=== PATIENT | male | born 1990 | race Caucasian/White ===

== ENCOUNTER 2017-07-17 18:22 | Inpatient (IN) | payer OTHER ==
[2017-07-17 18:59] VITALS: BMI 22.2
--- NOTE | 2017-07-17 20:22 | HP ---
Admission ROS [facility] Chief Complaint: Seeking admission to rehab for heroin dependence Allergies/Adverse Reactions: Allergies Allergy/AdvReac Type Severity Reaction Status Date / Time No Known Allergies Allergy Verified 07/17/17 19:07 History of Present Illness: 26 years old male with a history of heroin dependence is admitted to rehab. This is patient's first admission to [facility]. Patient has a past medical history of epilepsy and depression. Patient reports that he overdosed yesterday on heroine and was treated at a local hospital. Denies suicidal ideation at this time. Exam Limitations: No Limitations - Ebola screening Have you traveled outside of the country in the last 21 days: No Have you had contact with anyone from an Ebola affected area: No Have you been sick,other than usual withdrawal symptoms: No Do you have a fever: No - Review of Systems Constitutional: No Symptoms Reported EENT: reports: No Symptoms Reported Respiratory: reports: No Symptoms reported Cardiac: reports: No Symptoms Reported GI: reports: No Symptoms Reported : reports: No Symptoms Reported Musculoskeletal: reports: No Symptoms Reported Integumentary: reports: No Symptoms Reported Neuro: reports: No Symptoms reported Endocrine: reports: No Symptoms Reported Hematology: reports: No Symptoms Reported Psychiatric: reports: No Sypmtoms Reported, Mood/Affect Appropiate, Orientated x3 Other Systems: Reviewed and Negative Patient History - Patient Medical History Hx Anemia: No Hx Asthma: No Hx Chronic Obstructive Pulmonary Disease (COPD): No Hx Cancer: No Hx Cardiac Disorders: No Hx Congestive Heart Failure: No Hx Hypertension: No Hx Hypercholesterolemia: No HX Cerebrovascular Accident: No Hx Seizures: Yes (Epilepsy) Hx Diabetes: No Hx Gastrointestinal Disorders: No Hx Liver Disease: No Hx Genitourinary Disorders: No Hx Sexually Transmitted Disorders: No Hx Renal Disease (ESRD): No Hx Thyroid Disease: No Hx Human Immunodeficiency Virus (HIV): No (Negative 2016) Hx Hepatitis C: No (Negative 2017) Hx Depression: Yes Hx Suicide Attempt: No (Denies suicidal ideation at this time) Hx Bipolar Disorder: No Hx Schizophrenia: No - Patient Surgical History Past Surgical History: Yes Hx Neurologic Surgery: No Hx Cataract Extraction: No Hx Cardiac Surgery: No Hx Lung Surgery: No Hx Abdominal Surgery: No Hx Appendectomy: No Hx Cholecystectomy: No Hx Genitourinary Surgery: No Hx Orthopedic Surgery: No Other Surgical History: Ear surgery 2010 Anesthesia Reaction: No - PPD History Previous Implant?: No Documented Results: Negative w/o proof Implanted On Prior [facility] Admission?: No PPD to be Administered?: Yes - Reproductive History Patient is a Female of Child Bearing Age (11 -55 yrs old): No (MALE) - Smoking Cessation Smoking history: Current every day smoker Have you smoked in the past 12 months: Yes Aproximately how many cigarettes per day: 10 Hx Chewing Tobacco Use: No Initiated information on smoking cessation: Yes 'Breaking Loose' booklet given: 07/17/17 - Substance & Tx. History Hx Alcohol Use: No Hx Substance Use: Yes Substance Use Type: Marijuana Hx Substance Use Treatment: No - Substances Abused Heroin Route: Inhalation Frequency: 1-2 times per week Age of first use: 21 Date of Last Use: 07/16/17 Family Disease History - Family Disease History Family Disease History: Other: Father (Drug addiction), Mother (Drug addiction) Admission Physical Exam [facility] - Vital Signs Vital Signs: Vital Signs - 24 hr 07/17/17 18:53 Temperature 97.9 F Pulse Rate 90 Respiratory 18 Rate Blood Pressure 138/69 - Physical General Appearance: Yes: No Apparent Distress, Appropriately Dressed HEENTM: Yes: Normal ENT Inspection, Normal Voice, WOODY Respiratory: Yes: Lungs Clear, Normal Breath Sounds, No Respiratory Distress Neck: Yes: Supple Breast: Yes: Breast Exam Deferred Cardiology: Yes: Regular Rhythm, Regular Rate, S1, S2 Abdominal: Yes: Normal Bowel Sounds, Soft Genitourinary: Yes: Within Normal Limits Back: Yes: Within Normal Limits Musculoskeletal: Yes: Within Normal Limits Extremities: Yes: Within Normal Limits Neurological: Yes: Within Normal Limits Integumentary: Yes: Within Normal Limits Lymphatic: Yes: Within Normal Limits - Diagnostic (1) Opioid dependence, uncomplicated Current Visit: Yes Status: Chronic (2) Cannabis dependence, uncomplicated Current Visit: Yes Status: Chronic (3) Nicotine dependence Current Visit: Yes Status: Chronic (4) Epilepsy Current Visit: Yes Status: Chronic (5) Depression Current Visit: Yes Status: Chronic Cleared for Admission [facility] - Detox or Rehab [facility] Level of Care: Observation Bed Claeared for Rehab Admission: Yes [facility] Breath Alcohol Content Breath Alcohol Content: 0 Urine Drug Screen - Results Drug Screen Negative: No Urine Drug Screen Results: THC-Marijuana Inpatient Rehab Admission - Initial Determination Are CD services needed?: Yes Free of communicable disease: Yes Not in need of hospitalization: Yes - Rehab Admission Criteria Previous failed treatment: Yes Poor recovery environment: Yes Comorbidities: Yes Lacks judgement: No Patient is meeting Inpatient Rehab admission criteria:: Yes
[2017-07-17] MEDS ORDERED: ACETAMINOPHEN 325 MG TABLET (FP) PO PRN (20:35)
[2017-07-17] MEDS ORDERED: MAG HYDROX/AL HYDROX/SIMETH 30 ML UNIT-DOSE CUP PO PRN (20:35)
[2017-07-17] MEDS ORDERED: MENTHOL/PHENOL 1 EACH UD MM PRN (20:35)
[2017-07-17] MEDS ORDERED: NICOTINE POLACRILEX 2 MG GUM BUC PRN (20:35)
[2017-07-17] MEDS ORDERED: guaiFENesin/D-METHORPHAN HB 10 ML UNIT-DOSE CUPS PO PRN (20:35)
[2017-07-17] MEDS ORDERED: LOPERAMIDE HCL 2 MG CAPSULE PO PRN (20:35)
[2017-07-17] MEDS ORDERED: P-EPHED 60MG/TRIPROLIDI 2.5MG TABLET PO PRN (20:35)
[2017-07-17] MEDS ORDERED: MAGNESIUM HYDROX 2400MG/30ML ORAL SUSPENSION 30 ML CUP PO PRN (20:35)
[2017-07-17] MEDS ORDERED: IBUPROFEN 400 MG TABLET (FP) PO PRN (20:35)
[2017-07-17] MEDS ORDERED: MAGNESIUM CITRATE 300 ML BOTTLE PO PRN (20:35)
[2017-07-17] MEDS ORDERED: TUBERCULIN PPD 5 TU/0.1ML VIAL ID ONE (21:58)
[2017-07-17] MEDS: THIAMINE HCL 100 MG TABLET (FP) PO SCH (22:01)
[2017-07-17] MEDS: DIVALPROEX SODIUM 500 MG TABLET E.C. PO SCH (22:02)
[2017-07-17 22:16] LABS: URINE APPEARANCE CLEAR; URINE BILIRUBIN NEGATIVE (NEGATIVE); URINE BLOOD NEGATIVE (NEGATIVE); URINE COLOR YELLOW; URINE GLUCOSE (UA) NEGATIVE (NEGATIVE); URINE KETONE 1+ (NEGATIVE); URINE LEUK ESTERASE NEGATIVE (NEGATIVE); URINE NITRITE NEGATIVE (NEGATIVE); URINE PROTEIN NEGATIVE (NEGATIVE)
[2017-07-18 10:04] LABS: HEMATOCRIT 42.4 % (35.4-49); MCH 31.4 pg (25.7-33.7); MCHC 33.1 g/dl (32.0-35.9); MEAN PLT VOLUME 8.8 fl (7.5-11.1); PLATELET COUNT 120 K/MM3 (134-434); RBC 4.46 M/mm3 (4.00-5.60); RDW 14.2 % (11.9-15.9); WHITE BLOOD COUNT 3.5 K/mm3 (4.0-10.0)
[2017-07-18 10:14] LABS: CHLORIDE 102 mmol/L (98-107); POTASSIUM 3.8 mmol/L (3.5-5.1); SODIUM 138 mmol/L (136-145)
--- NOTE | 2017-07-18 10:16 | EKG ---
Test Reason : Blood Pressure : / mmHG Vent. Rate : 087 BPM Atrial Rate : 087 BPM P-R Int : 142 ms QRS Dur : 092 ms QT Int : 358 ms P-R-T Axes : 063 -28 047 degrees QTc Int : 430 ms NORMAL SINUS RHYTHM NORMAL ECG NO PREVIOUS ECGS AVAILABLE Confirmed by DARIEL GILBERT MD ([id number]) on 07/18/2017 10:15:46 AM Referred By: Confirmed By:DARIEL GILBERT MD
[2017-07-18] MEDS: PRENATAL VITAMINS W/ FOLIC ACID TABLET (FP) PO SCH (10:20)
[2017-07-18] MEDS: NICOTINE 14 MG/24 HOURS TOPICAL PATCH TD SCH (10:20)
[2017-07-18] MEDS: DIVALPROEX SODIUM 500 MG TABLET E.C. PO SCH ×2 (10:20→21:00)
[2017-07-18 10:23] LABS: ALBUMIN 3.6 g/dl (3.4-5.0); ALK PHOS 86 U/L (45-117); ANION GAP 8 (8-16); BILIRUBIN,TOTAL 0.8 mg/dL (0.2-1.0); BLOOD UREA NITROGEN 6 mg/dL (7-18); CALCIUM 8.2 mg/dL (8.5-10.1); CO2 28 mmol/L (21-32); CREATININE 0.6 mg/dL (0.7-1.3); GLUCOSE,RANDOM 80 mg/dL (74-106); SGOT/AST 18 U/L (15-37); SGPT/ALT 21 U/L (12-78); TOT PROT 6.2 g/dl (6.4-8.2)
--- NOTE | 2017-07-18 14:06 | HP ---
Psychiatrist Admission - Data Date of interview: 07/18/17 Admission source: [facility] Identifying data: This is the first 5N inpatient rehabilitation admission for this 26 year old male father of 6 year old , who is unemployed, residing in [facility]. Medical History: Patient reports history of epilepsy. Smokes ciagerettes 10 a day. Psychiatric History: Patient reports first psychiatric contact 7 years ago in outpatient setting, was started remeron 30 mg po hs, no psychiatric follow up, states he visits ER to get his scripts, no history of psychiatric hospitalizations, no history of suicidal attmepts, he states he accidently overdosed with 1/2 bag of heroin about 2 days ago and was admitted to [facility] and d/c. He appeared a little fatigued, states that he just feels very tired and wants to sleep. Physical/Sexual Abuse/Trauma History: Denies history of abuse(sexual, physical and verbal). Vital Signs: Vital Signs - 24 hr 07/17/17 07/17/17 07/18/17 18:53 22:00 00:30 Temperature 97.9 F 98.3 F Pulse Rate 90 90 Respiratory 18 18 16 Rate Blood Pressure 138/69 125/76 07/18/17 07/18/17 03:30 06:29 Temperature 97.3 F L Pulse Rate 82 Respiratory 16 16 Rate Blood Pressure 117/70 Allergies/Adverse Reactions: Allergies Allergy/AdvReac Type Severity Reaction Status Date / Time No Known Allergies Allergy Verified 07/17/17 19:07 Date of last physical exam: 07/17/17 Concur with the findings of this exam: Yes - Substance Abuse/Tx History Hx Alcohol Use: No Substance Use Type: Heroin, Marijuana Hx Substance Use Treatment: Yes ([facility]) Mental Status Exam - Mental Status Exam Alert and Oriented to: Place, Person Cognitive Function: Grossly Intact Patient Appearance: Disheveled Mood: Sad, Anxious Affect: Appropriate, Mood Congruent Patient Behavior: Sedated, Cooperative Speech Pattern: Appropriate Voice Loudness: Normal Thought Process: Goal Oriented Thought Disorder: Not Present Hallucinations: Denies Suicidal Ideation: Denies Homicidal Ideation: Denies Insight/Judgement: Fair Sleep: Fair Appetite: Fair Muscle strength/Tone: Normal Gait/Station: Normal Psychiatric Findings - Problem List ([place] 1, 2,3) (1) Cannabis dependence Current Visit: Yes Status: Acute (2) Opioid dependence Current Visit: Yes Status: Acute (3) Nicotine dependence Current Visit: Yes Status: Chronic (4) Depressive disorder Current Visit: Yes Status: Acute (5) Opioid-induced anxiety disorder Current Visit: Yes Status: Acute - Initial Treatment Plan Initial Treatment Plan: Will continue Remeron 30 mg po hs, monitor progress as needed.
[2017-07-18] MEDS: THIAMINE HCL 100 MG TABLET (FP) PO SCH (21:01)
[2017-07-18] MEDS: MIRTAZAPINE 30 MG TABLET (FP) PO SCH (21:01)
[2017-07-19] MEDS: DIVALPROEX SODIUM 500 MG TABLET E.C. PO SCH ×2 (09:55→21:15)
[2017-07-19] MEDS: PRENATAL VITAMINS W/ FOLIC ACID TABLET (FP) PO SCH (09:55)
[2017-07-19] MEDS: NICOTINE 14 MG/24 HOURS TOPICAL PATCH TD SCH (09:56)
[2017-07-19] MEDS: THIAMINE HCL 100 MG TABLET (FP) PO SCH (21:15)
[2017-07-19] MEDS: MIRTAZAPINE 30 MG TABLET (FP) PO SCH (21:15)
[2017-07-20] MEDS: NICOTINE 14 MG/24 HOURS TOPICAL PATCH TD SCH (10:01)
[2017-07-20] MEDS: DIVALPROEX SODIUM 500 MG TABLET E.C. PO SCH ×2 (10:01→21:53)
[2017-07-20] MEDS: PRENATAL VITAMINS W/ FOLIC ACID TABLET (FP) PO SCH (10:01)
[2017-07-20] MEDS: MIRTAZAPINE 30 MG TABLET (FP) PO SCH (21:53)
[2017-07-20] MEDS: THIAMINE HCL 100 MG TABLET (FP) PO SCH (21:53)
[2017-07-21] MEDS: DIVALPROEX SODIUM 500 MG TABLET E.C. PO SCH ×2 (10:07→21:10)
[2017-07-21] MEDS: PRENATAL VITAMINS W/ FOLIC ACID TABLET (FP) PO SCH (10:07)
[2017-07-21] MEDS: NICOTINE 14 MG/24 HOURS TOPICAL PATCH TD SCH (10:08)
[2017-07-21] MEDS: THIAMINE HCL 100 MG TABLET (FP) PO SCH (21:10)
[2017-07-21] MEDS: MIRTAZAPINE 30 MG TABLET (FP) PO SCH (21:10)
[2017-07-22] MEDS: DIVALPROEX SODIUM 500 MG TABLET E.C. PO SCH ×2 (10:08→21:01)
[2017-07-22] MEDS: NICOTINE 14 MG/24 HOURS TOPICAL PATCH TD SCH (10:08)
[2017-07-22] MEDS: PRENATAL VITAMINS W/ FOLIC ACID TABLET (FP) PO SCH (10:08)
[2017-07-22] MEDS: MIRTAZAPINE 30 MG TABLET (FP) PO SCH (21:01)
[2017-07-22] MEDS: THIAMINE HCL 100 MG TABLET (FP) PO SCH (21:01)
[2017-07-23] MEDS: DIVALPROEX SODIUM 500 MG TABLET E.C. PO SCH ×2 (09:42→21:12)
[2017-07-23] MEDS: NICOTINE 14 MG/24 HOURS TOPICAL PATCH TD SCH (09:42)
[2017-07-23] MEDS: PRENATAL VITAMINS W/ FOLIC ACID TABLET (FP) PO SCH (09:42)
[2017-07-23] MEDS: MIRTAZAPINE 30 MG TABLET (FP) PO SCH (21:12)
[2017-07-23] MEDS: THIAMINE HCL 100 MG TABLET (FP) PO SCH (21:12)
[2017-07-24 06:42] VITALS: BP 98/62; PULSE 65; TEMP 97.6
[2017-07-24] MEDS: PRENATAL VITAMINS W/ FOLIC ACID TABLET (FP) PO SCH (09:46)
[2017-07-24] MEDS: DIVALPROEX SODIUM 500 MG TABLET E.C. PO SCH (09:46)
[2017-07-24] MEDS: NICOTINE 14 MG/24 HOURS TOPICAL PATCH TD SCH (09:47)
--- NOTE | 2017-07-24 11:56 | PN ---
Psychiatric Progress Note Vital Signs: Vital Signs Period Temp Pulse Resp BP Sys/Smith Pulse Ox Last 24 Hr 97.6 F 65 16-16 98/62 Date of Session: 07/24/17 Chief Complaint:: discharge visit HPI: patient has addressed opioid, cnnabis, nicotine dependence comorbid depressive disorder. ROS: seizure disorder medically managed Current Medications: Active Medications Generic Name Dose Route Start Last Admin Trade Name Freq PRN Reason Stop Dose Admin Acetaminophen 650 mg 07/17/17 20:35 Tylenol - PO Q4H PRN FEVER Al Hydroxide/Mg Hydroxide 30 ml 07/17/17 20:35 Mylanta Oral Suspension - PO Q6H PRN DYSPEPSIA Divalproex Sodium 500 mg 07/17/17 22:00 07/24/17 09:46 Depakote - PO 500 mg BID LEVON Administration Eucalyptus/Menthol/Phenol/Sorbitol 1 each 07/17/17 20:35 Cepastat Lozenge - MM Q4H PRN SORE THROAT Guaifenesin 10 ml 07/17/17 20:35 Robitussin Dm - PO Q6H PRN COUGH Ibuprofen 400 mg 07/17/17 20:35 07/18/17 21:02 Motrin - PO 400 mg Q6H PRN Administration Pain level 4-6 Loperamide HCl 4 mg 07/17/17 20:35 07/19/17 21:34 Imodium - PO 4 mg Q6H PRN Administration DIARRHEA Magnesium Citrate 300 ml 07/17/17 20:35 Citroma - PO Q48H PRN CONSTIPATION Magnesium Hydroxide 30 ml 07/17/17 20:35 Milk Of Magnesia - PO DAILY PRN CONSTIPATION Mirtazapine 30 mg 07/18/17 22:00 07/23/17 21:12 Remeron - PO 30 mg HS LEVON Administration Nicotine 14 mg 07/18/17 10:00 07/24/17 09:47 Nicoderm Patch - TD 14 mg DAILY LEVON Administration Nicotine Polacrilex 2 mg 07/17/17 20:35 07/21/17 21:10 Nicorette Gum - BUC 2 mg Q2H PRN Administration NICOTINE REPLACEMENT RX Multivit/Folic Acid/Iron 1 tab 07/18/17 10:00 07/24/17 09:46 Vitamins ([facility]) - PO 1 tab DAILY LEVON Administration Pseudoephedrine/Triprolidine 1 combo 07/17/17 20:35 Actifed - PO TID PRN NASAL CONGESTION Thiamine HCl 100 mg 07/17/17 22:00 07/23/17 21:12 Vitamin B1 - PO 100 mg HS LEVON Administration Current Side Effect: No Lab tests ordered: No Lab tests reviewed: Yes Provider note:: The patient completed treatment today and will continue to address his issues at [facility] inpatient treatment program. He understance the negative consequences of his addiction and motivated to continue maintain abstinence. Remeron well tolerated scripts provided, scripts provided, stable for discharge. Total face to face time:: 15 Mental Status Exam - Mental Status Exam Alert and Oriented to: Time, Place, Person Cognitive Function: Good Patient Appearance: Well Groomed Mood: Hopeful Affect: Appropriate, Mood Congruent Patient Behavior: Appropriate, Cooperative Speech Pattern: Clear, Appropriate Voice Loudness: Normal Thought Process: Intact, Goal Oriented Thought Disorder: Not Present Hallucinations: Denies Suicidal Ideation: Denies Homicidal Ideation: Denies Insight/Judgement: Fair Sleep: Fair Appetite: Good Muscle strength/Tone: Normal Gait/Station: Normal Psychiatric Treatment Plan - Problem List (1) Cannabis dependence Current Visit: Yes (2) Opioid dependence Current Visit: Yes (3) Nicotine dependence Current Visit: Yes (4) Depressive disorder Current Visit: Yes (5) Opioid-induced anxiety disorder Current Visit: Yes
== END 2017-07-24 12:30 | disposition home or self-care (01) | DRG 772 ==
LOC: YASAS 18:22 → Y5N 19:11
PROVIDERS: ADMIT Psychiatry & Neurology Psychiatry; ATTEND Psychiatry & Neurology Psychiatry
PROC: HZ42ZZZ Group Counseling for Substance Abuse Treatment, Cognitive-Behavioral (ICD-10-PCS; principal; 2017-07-17)
DX: F11.288 Opioid dependence with other opioid-induced disorder (principal); F12.20 Cannabis dependence, uncomplicated; F17.210 Nicotine dependence, cigarettes, uncomplicated; F32.9 Major depressive disorder, single episode, unspecified; G40.909 Epilepsy, unspecified, not intractable, without status epilepticus
CPT/HCPCS: 36415; 80053; 81003; 85027; 86593; 86803; 93005; 93010

== ENCOUNTER 2019-06-29 17:25 | Inpatient (IN) | payer OTHER ==
[2019-06-29 20:28] VITALS: BMI 20.2
--- NOTE | 2019-06-30 01:24 | HP ---
CIWA Score - Admission Criteria [facility] Guidelines: Admission for Medically Managed Detox: Requires at least one of the followin. CIWA greater than 12 2. Seizures within the past 24 hours 3. Delirium tremens within the past 24 hours 4. Hallucinations within the past 24 hours 5. Acute intervention needed for co occurring medical disorder 6. Acute intervention needed for co occurring psychiatric disorder 7. Severe withdrawal that cannot be handled at a lower level of care (continued vomiting, continued diarrhea, abnormal vital signs) requiring intravenous medication and/or fluids 8. Admitting History and Physical - Smoking History Smoking history: Current every day smoker Have you smoked in the past 12 months: Yes Aproximately how many cigarettes per day: 10 - Alcohol/Substance Use Hx Alcohol Use: No Admission ROS [facility] Allergies/Adverse Reactions: Allergies Allergy/AdvReac Type Severity Reaction Status Date / Time No Known Allergies Allergy Verified 06/29/19 19:56 History of Present Illness: Confidential Drug Utilization Report Search Terms: emre fonseca, 1990 Search Date: 06/30/2019 01:18:25 AM The Drug Utilization Report below displays all of the controlled substance prescriptions, if any, that your patient has filled in the last twelve months. The information displayed on this report is compiled from pharmacy submissions to the Department, and accurately reflects the information as submitted by the pharmacies. T You have not added a ZULEMA number. Keeping your ZULEMA number(s) up to date on the My ZULEMA Numbers page will enable the separation of your prescriptions from others ' in the search results. Others' Prescriptions Patient Name: Emre Fonseca Date: 1990 Address: [address] [place] [address] Sex: Male Rx Written Rx Dispensed Drug Quantity Days Supply Prescriber Name 01/01/2019 06/17/2019 vimpat 50 mg tablet 120 30 Mohammad, Sajjad 01/01/2019 05/15/2019 vimpat 50 mg tablet 120 30 Mohammad, Sajjad 01/01/2019 04/12/2019 vimpat 50 mg tablet 120 30 Mohammad, Sajjad 01/01/2019 03/08/2019 vimpat 50 mg tablet 120 30 Mohammad, Sajjad 01/01/2019 02/09/2019 vimpat 50 mg tablet 120 30 Mohammad, Sajjad 01/01/2019 01/08/2019 vimpat 50 mg tablet 120 30 Sa Misheljelda 07/29/2018 12/08/2018 vimpat 50 mg tablet 120 30 [facility] 07/29/2018 11/02/2018 vimpat 50 mg tablet 120 30 [facility] 07/29/2018 10/03/2018 vimpat 50 mg tablet 120 30 [facility] 07/29/2018 09/02/2018 vimpat 50 mg tablet 120 30 [facility] 07/29/2018 08/04/2018 vimpat 50 mg tablet 120 30 [facility] 05/04/2018 07/03/2018 vimpat 50 mg tablet 120 30 - Ebola screening Have you traveled outside of the country in the last 21 days: No (N) Have you had contact with anyone from an Ebola affected area: No Patient History - Patient Medical History Hx Anemia: No Hx Asthma: No Hx Chronic Obstructive Pulmonary Disease (COPD): No Hx Cancer: No Hx Cardiac Disorders: No Hx Congestive Heart Failure: No Hx Hypertension: No Hx Hypercholesterolemia: No HX Cerebrovascular Accident: No Hx Seizures: Yes (Epilepsy) Hx Diabetes: No Hx Gastrointestinal Disorders: No Hx Liver Disease: No Hx Genitourinary Disorders: No Hx Sexually Transmitted Disorders: No Hx Renal Disease (ESRD): No Hx Thyroid Disease: No Hx Human Immunodeficiency Virus (HIV): No (Negative 2016) Hx Hepatitis C: No (Negative 2016) Hx Depression: No Hx Suicide Attempt: No Hx Bipolar Disorder: No Hx Schizophrenia: No - Patient Surgical History Past Surgical History: Yes Hx Neurologic Surgery: No Hx Cataract Extraction: No Hx Cardiac Surgery: No Hx Lung Surgery: No Hx Abdominal Surgery: No Hx Appendectomy: No Hx Cholecystectomy: No Hx Genitourinary Surgery: No Hx Orthopedic Surgery: No Other Surgical History: Ear surgery 2010 Anesthesia Reaction: No - PPD History Date: 07/19/17 - Smoking Cessation Smoking history: Current every day smoker Have you smoked in the past 12 months: Yes Aproximately how many cigarettes per day: 10 Hx Chewing Tobacco Use: No - Substances abused Alprazolam (Xanax) Other (specify): 2mg Substance route: Oral Frequency: Daily Amount used: 4-6 pills Age of first use: 18 Date of last use: 06/29/19 Benzodiazepine (Klonopin) Other (specify): 3mg Substance route: Oral Frequency: 3-6 times per week Amount used: 1 1/2 pills Age of first use: 22 Date of last use: 06/28/19 Heroin Substance route: Inhalation Frequency: 1-3 times last 30 days Amount used: 3 bags Age of first use: 23 Date of last use: 06/09/19 Alcohol Substance route: Oral Frequency: Daily Amount used: 10 beers & 1 pint of chloe Age of first use: 8 Date of last use: 06/28/19 Admission Physical Exam [facility] - Vital Signs Vital Signs: Vital Signs - 24 hr 06/29/19 19:56 Temperature 97.8 F Pulse Rate 70 Respiratory 20 Rate Blood Pressure 95/58 L Breathalyzer - Breathalyzer Breathalyzer: 0 Urine Drug Screen - Test Device Lot number: [id number] Expiration date: 01/13/21 - Control Is test valid?: Yes - Results Drug screen NEGATIVE: No Urine drug screen results: THC-Marijuana, MTD-Methadone, BZO-Benzodiazepines
--- NOTE | 2019-06-30 03:54 | PN ---
[facility] CIWA - CIWA Score Nausea/Vomitin Muscle Tremors: 4-Moderate,w/Arms Extend Anxiety: 3 Agitation: 2 Paroxysmal Sweats: 2 Orientation: 0-Oriented Tacttile Disturbances: 0-None Auditory Disturbances: 0-None Visual Disturbances: 0-None Headache: 3-Moderate CIWA-Ar Total Score: 16 [facility] Progress Note (SOAP) Subjective: Benzodiazepine dependence Opioid dependence Alcohol dependence in withdrawal Nicotine dependence Epilepsy Psoriasis Methadone maintenance therapy with [facility] Objective: 06/30/19 03:53 Alert and oriented x 3 Tremors Sweating Anxiety Vital Signs Temperature 97.8 F 06/29/19 19:56 Pulse Rate 70 06/29/19 19:56 Respiratory Rate 20 06/29/19 19:56 Blood Pressure 95/58 L 06/29/19 19:56 O2 Sat by Pulse Oximetry (%) Assessment: 06/30/19 03:55 Alcohol withdrawal symptoms opioid withdrawal symptoms Benzo. dependence Marijuana dependence Methadone 100mg tablet oral maintenance therapy with [facility]. dose to be confirmed Plan: Admit to detox Valium regimen H and P including medication confirmation to be done in the morning by the admitting TOWEL HEMMER on the floor See Admission orders
[2019-06-30] MEDS ORDERED: MENTHOL/PHENOL 1 EACH UD MM PRN (04:00)
[2019-06-30] MEDS ORDERED: ACETAMINOPHEN 325 MG TABLET (FP) PO PRN ×2 (04:00)
[2019-06-30] MEDS ORDERED: MAGNESIUM CITRATE 300 ML BOTTLE PO PRN (04:00)
[2019-06-30] MEDS ORDERED: MAG HYDROX/AL HYDROX/SIMETH 30 ML UNIT-DOSE CUP PO PRN (04:00)
[2019-06-30] MEDS ORDERED: NICOTINE POLACRILEX 2 MG GUM BUC PRN (04:00)
[2019-06-30] MEDS ORDERED: IBUPROFEN 400 MG TABLET (FP) PO PRN (04:00)
[2019-06-30] MEDS ORDERED: BISMUTH SUBSALICYLATE 524 MG/30 ML UD PO PRN (04:00)
[2019-06-30] MEDS ORDERED: MAGNESIUM HYDROX 2400MG/30ML ORAL SUSPENSION 30 ML CUP PO PRN (04:00)
[2019-06-30] MEDS: diazePAM 5 MG TABLET PO SCH ×3 (05:08→22:09)
--- NOTE | 2019-06-30 10:07 | EKG ---
Test Reason : Blood Pressure : / mmHG Vent. Rate : 063 BPM Atrial Rate : 063 BPM P-R Int : 156 ms QRS Dur : 098 ms QT Int : 416 ms P-R-T Axes : 066 021 037 degrees QTc Int : 425 ms NORMAL SINUS RHYTHM NORMAL ECG WHEN COMPARED WITH ECG OF 17-JUL-2017 22:16, NO SIGNIFICANT CHANGE WAS FOUND Confirmed by QUITA CHAN MD ([id number]) on 06/30/2019 10:06:45 AM Referred By: Confirmed By:QUITA CHAN MD
[2019-06-30] MEDS: LACOSAMIDE 50 MG TABLET PO SCH ×2 (10:28→22:08)
[2019-06-30] MEDS: NICOTINE 21 MG/24 HOURS TOPICAL PATCH TD SCH (10:28)
[2019-06-30] MEDS: DIVALPROEX SODIUM 500 MG TABLET E.C. PO SCH ×2 (10:28→22:09)
[2019-06-30] MEDS: PRENATAL VITAMINS W/ FOLIC ACID TABLET (FP) PO SCH (10:28)
[2019-06-30] MEDS: hydrOXYzine PAMOATE 25 MG CAPSULE (FP) PO PRN (10:36)
[2019-06-30] MEDS ORDERED: METHADONE HCL 10 MG TABLET PO ONE (11:10)
--- NOTE | 2019-06-30 11:10 | HP ---
CIWA Score Nausea/Vomitin Muscle Tremors: 4-Moderate,w/Arms Extend Anxiety: 3 Agitation: 2 Paroxysmal Sweats: 2 Orientation: 0-Oriented Tacttile Disturbances: 0-None Auditory Disturbances: 0-None Visual Disturbances: 0-None Headache: 3-Moderate CIWA-Ar Total Score: 16 - Admission Criteria OASAS Guidelines: Admission for Medically Managed Detox: Requires at least one of the followin. CIWA greater than 12 2. Seizures within the past 24 hours 3. Delirium tremens within the past 24 hours 4. Hallucinations within the past 24 hours 5. Acute intervention needed for co occurring medical disorder 6. Acute intervention needed for co occurring psychiatric disorder 7. Severe withdrawal that cannot be handled at a lower level of care (continued vomiting, continued diarrhea, abnormal vital signs) requiring intravenous medication and/or fluids 8. 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 - Past Surgical History Additional Past Surgical History: right ear surgery - Advance Directives Advance Directives: Yes: Health Care Proxy - Smoking History Smoking history: Current every day smoker Have you smoked in the past 12 months: Yes Aproximately how many cigarettes per day: 10 - Alcohol/Substance Use Hx Alcohol Use: No History of Substance Use: reports: Tranquilizers - Social History Usual Living Arrangement: Yes: With Parent Occupation: unemployed Admission ROS [facility] - [facility] Chief Complaint: i need help to stop using xanax and alcohol ,heroin abused,mmtp Allergies/Adverse Reactions: Allergies Allergy/AdvReac Type Severity Reaction Status Date / Time No Known Allergies Allergy Verified 06/29/19 19:56 History of Present Illness: this 28 years old male with xanax dependence ,methadone maintenance 100 mgs/day, weight loss.epilepsy denied syncope nicotine dependence last detox 04/04 weight loss plan for residential rehab after detox also alcohol dependence,heorin abused - Ebola screening Have you traveled outside of the country in the last 21 days: No (N) Have you had contact with anyone from an Ebola affected area: No - Review of Systems Constitutional: Loss of Appetite, Night Sweats, Unintentional Wgt. Loss EENT: reports: No Symptoms Reported Respiratory: reports: No Symptoms reported Cardiac: reports: No Symptoms Reported GI: reports: Diarrhea, Poor Appetite, Poor Fluid Intake, Indigestion : reports: No Symptoms Reported Musculoskeletal: reports: Back Pain, Muscle Pain Integumentary: reports: Dryness Neuro: reports: Tremors Endocrine: reports: No Symptoms Reported Hematology: reports: No Symptoms Reported Psychiatric: reports: No Sypmtoms Reported, Judgement Intact, Mood/Affect Appropiate, Orientated x3, Depressed Other Systems: Reviewed and Negative Patient History - Patient Medical History Hx Anemia: No Hx Asthma: No Hx Chronic Obstructive Pulmonary Disease (COPD): No Hx Cancer: No Hx Cardiac Disorders: No Hx Congestive Heart Failure: No Hx Hypertension: No Hx Hypercholesterolemia: No HX Cerebrovascular Accident: No Hx Seizures: Yes (8 monthes ago) Hx Diabetes: No Hx Gastrointestinal Disorders: No Hx Liver Disease: No Hx Genitourinary Disorders: No Hx Sexually Transmitted Disorders: No Hx Renal Disease (ESRD): No Hx Thyroid Disease: No Hx Human Immunodeficiency Virus (HIV): No (03/04 negative) Hx Hepatitis C: No (Negative 2016) Hx Depression: Yes Hx Suicide Attempt: No Hx Bipolar Disorder: No Hx Schizophrenia: No Other Medical History: no suicidal,no homicidal - Patient Surgical History Past Surgical History: Yes Hx Neurologic Surgery: No Hx Cataract Extraction: No Hx Cardiac Surgery: No Hx Lung Surgery: No Hx Breast Surgery: No Hx Breast Biopsy: No Hx Abdominal Surgery: No Hx Appendectomy: No Hx Cholecystectomy: No Hx Genitourinary Surgery: No Hx Section: No Hx Orthopedic Surgery: No Other Surgical History: Ear surgery 2010 Anesthesia Reaction: No - PPD History Previous Implant?: Yes Documented Results: Negative w/proof Implanted On Prior R Admission?: Yes Date: 07/19/17 PPD to be Administered?: Yes - Smoking Cessation Smoking history: Current every day smoker Have you smoked in the past 12 months: Yes Aproximately how many cigarettes per day: 10 Hx Chewing Tobacco Use: No Initiated information on smoking cessation: Yes 'Breaking Loose' booklet given: 06/30/19 - Substance & Tx. History Hx Alcohol Use: No Hx Substance Use: Yes Substance Use Type: Tranquilizers Hx Substance Use Treatment: Yes ([facility] 03/04) - Substances abused Alprazolam (Xanax) Other (specify): 2mg Substance route: Oral Frequency: Daily Amount used: 4-6 pills 8 mgs to 16 mgs Age of first use: 18 Date of last use: 06/29/19 Benzodiazepine (Klonopin) Other (specify): 3mg Substance route: Oral Frequency: 3-6 times per week Amount used: 1 1/2 pills Age of first use: 22 Date of last use: 06/28/19 Heroin Substance route: Inhalation Frequency: 1-3 times last 30 days Amount used: 3 bags Age of first use: 23 Date of last use: 06/09/19 Alcohol Substance route: Oral Frequency: Daily Amount used: 10 beers & 1 pint of chloe Age of first use: 8 Date of last use: 06/28/19 Admission Physical Exam S - Vital Signs Vital Signs: Vital Signs - 24 hr 06/29/19 06/30/19 06/30/19 19:56 05:23 07:29 Temperature 97.8 F 97.0 F L 98.1 F Pulse Rate 70 63 63 Respiratory 20 18 18 Rate Blood Pressure 95/58 L 108/70 99/51 L 06/30/19 09:11 Temperature 97.5 F L Pulse Rate 59 L Respiratory 16 Rate Blood Pressure 91/55 L - Physical General Appearance: Yes: Moderate Distress, Alcohol on Breath, Tremorous, Sweating, Anxious HEENTM: Yes: Nasal Congestion Respiratory: Yes: Within Normal Limits, Lungs Clear, Normal Breath Sounds Neck: Yes: Supple, Trachea in good position Breast: Yes: Within Normal Limits Cardiology: Yes: Within Normal Limits, Regular Rhythm, Regular Rate, S1, S2 Abdominal: Yes: Within Normal Limits, Normal Bowel Sounds, Non Tender, Soft Genitourinary: Yes: Within Normal Limits Back: Yes: Muscle Spasm Musculoskeletal: Yes: Back pain, Muscle Pain Extremities: Yes: Tremors Neurological: Yes: lubrication technician II-XII NML intact, Alert, Motor Strength 5/5 Integumentary: Yes: Dry Lymphatic: Yes: Within Normal Limits - Diagnostic (1) Uncomplicated sedative, hypnotic or anxiolytic withdrawal Current Visit: Yes Status: Acute (2) Alcohol use disorder Current Visit: Yes Status: Acute (3) Heroin abuse Current Visit: Yes Status: Acute (4) Methadone maintenance therapy patient Current Visit: Yes Status: Acute (5) Dehydration Current Visit: Yes Status: Acute (6) Nicotine dependence Current Visit: Yes Status: Acute (7) Epilepsy Current Visit: No Status: Chronic Cleared for Admission S - Detox or Rehab [facility] Level of Care: Medically Managed Detox Regimen/Protocol: Valium Breathalyzer - Breathalyzer Breathalyzer: 0 Urine Drug Screen - Test Device Lot number: [id number] Expiration date: 01/13/21 - Control Is test valid?: Yes - Results Drug screen NEGATIVE: No Urine drug screen results: THC-Marijuana, MTD-Methadone, BZO-Benzodiazepines Inpatient Rehab Admission - Rehab Decision to Admit Inpatient rehab admission?: No
[2019-06-30] MEDS: diazePAM 5 MG TABLET PO PRN (11:12)
[2019-06-30 11:55] LABS: HEMATOCRIT 35.6 % (35.4-49); HEMOGLOBIN 12.1 GM/dL (11.7-16.9); MCH 32.9 pg (25.7-33.7); MEAN CELL VOLUME 96.7 fl (80-96); MEAN PLT VOLUME 9.2 fl (7.5-11.1); PLATELET COUNT 102 K/MM3 (134-434); RBC 3.68 M/mm3 (4.00-5.60); RDW 13.8 % (11.9-15.9); WHITE BLOOD COUNT 4.1 K/mm3 (4.0-10.0)
[2019-06-30] MEDS ORDERED: METHADONE 80 MG, METHADONE 20 MG PO ONE (12:05)
[2019-06-30 12:29] LABS: ALBUMIN 3.1 g/dl (3.4-5.0); BILIRUBIN,TOTAL 0.3 mg/dL (0.2-1); BLOOD UREA NITROGEN 19.8 mg/dL (7-18); CALCIUM 8.6 mg/dL (8.5-10.1); CREATININE 0.8 mg/dL (0.55-1.3); POTASSIUM 3.8 mmol/L (3.5-5.1); TOT PROT 5.5 g/dl (6.4-8.2)
[2019-06-30] MEDS ORDERED: METHADONE HCL 10 MG TABLET ONE (12:58)
[2019-06-30] MEDS ORDERED: METHADONE HCL 40 MG DISPERSABLE TABLET ONE (12:59)
--- NOTE | 2019-06-30 14:44 | CONSULT ---
[facility] Psychiatric Consult - Data Date of interview: 06/30/19 Admission source: [facility] Identifying data: Patient is approached at bedside for psychiatric interview. Mr Fonseca declines.
[2019-06-30] MEDS: THIAMINE HCL 100 MG TABLET (FP) PO SCH (22:09)
[2019-06-30] MEDS: MELATONIN 5 MG TABLETS PO PRN (22:10)
[2019-07-01] MEDS ORDERED: METHADONE HCL 40 MG DISPERSABLE TABLET ONE ×2 (05:04→08:42)
[2019-07-01] MEDS ORDERED: METHADONE HCL 10 MG TABLET ONE ×2 (05:04→08:41)
[2019-07-01] MEDS ORDERED: METHADONE HCL 40 MG DISPERSABLE TABLET PO SCH (06:00)
[2019-07-01] MEDS ORDERED: METHADONE 80 MG, METHADONE 20 MG PO SCH (06:00)
[2019-07-01] MEDS: diazePAM 5 MG TABLET PO SCH ×2 (06:00→17:38)
[2019-07-01] MEDS: PRENATAL VITAMINS W/ FOLIC ACID TABLET (FP) PO SCH (10:28)
[2019-07-01] MEDS: DIVALPROEX SODIUM 500 MG TABLET E.C. PO SCH ×2 (10:28→22:35)
[2019-07-01] MEDS: LACOSAMIDE 50 MG TABLET PO SCH ×2 (10:28→22:35)
[2019-07-01] MEDS: NICOTINE 21 MG/24 HOURS TOPICAL PATCH TD SCH (10:29)
[2019-07-01] MEDS: diazePAM 5 MG TABLET PO PRN ×2 (10:30→22:35)
[2019-07-01] MEDS ORDERED: METHADONE HCL 10 MG TABLET PO ONE (10:34)
[2019-07-01] MEDS ORDERED: METHADONE 80 MG, METHADONE 20 MG PO ONE (10:40)
--- NOTE | 2019-07-01 10:44 | PN ---
[facility] CIWA - CIWA Score Nausea/Vomitin-Mild Nausea/No Vomiting Muscle Tremors: 1-None Visible, but [place] Anxiety: 4-Mod. Anxious/Guarded Agitation: 3 Paroxysmal Sweats: 2 Orientation: 0-Oriented Tacttile Disturbances: 0-None Auditory Disturbances: 0-None Visual Disturbances: 1-Very Mild Sensitivity Headache: 1-Very Mild CIWA-Ar Total Score: 13 S Progress Note (SOAP) Subjective: 28 years old male admitted on 06/30/19 for alcohol and benzo withdrawal sx management treating with valium detox regimen prefers methadone to be taking around 10 am begin methadone 100 mg po around 10 am today Objective: 07/01/19 10:38 Vital Signs Temperature 97.2 F L 07/01/19 09:10 Pulse Rate 48 L 07/01/19 09:10 Respiratory Rate 18 07/01/19 09:10 Blood Pressure 101/60 07/01/19 09:10 O2 Sat by Pulse Oximetry (%) Laboratory Last Values WBC 4.1 K/mm3 (4.0-10.0) 06/30/19 09:00 RBC 3.68 M/mm3 (4.00-5.60) L 06/30/19 09:00 Hgb 12.1 GM/dL (11.7-16.9) 06/30/19 09:00 Hct 35.6 % (35.4-49) D 06/30/19 09:00 MCV 96.7 fl (80-96) H 06/30/19 09:00 MCH 32.9 pg (25.7-33.7) 06/30/19 09:00 MCHC 34.0 g/dl (32.0-35.9) 06/30/19 09:00 RDW 13.8 % (11.9-15.9) 06/30/19 09:00 Plt Count 102 K/MM3 (134-434) L 06/30/19 09:00 MPV 9.2 fl (7.5-11.1) 06/30/19 09:00 Sodium 140 mmol/L (136-145) 06/30/19 09:00 Potassium 3.8 mmol/L (3.5-5.1) 06/30/19 09:00 Chloride 103 mmol/L (98-107) 06/30/19 09:00 Carbon Dioxide 32 mmol/L (21-32) 06/30/19 09:00 Anion Gap 6 MMOL/L (8-16) L 06/30/19 09:00 BUN 19.8 mg/dL (7-18) H 06/30/19 09:00 Creatinine 0.8 mg/dL (0.55-1.3) 06/30/19 09:00 Est GFR (CKD-EPI)AfAm 140.90 06/30/19 09:00 Est GFR (CKD-EPI)NonAf 121.57 06/30/19 09:00 Random Glucose 99 mg/dL (74-106) 06/30/19 09:00 Calcium 8.6 mg/dL (8.5-10.1) 06/30/19 09:00 Total Bilirubin 0.3 mg/dL (0.2-1) 06/30/19 09:00 AST 12 U/L (15-37) L 06/30/19 09:00 ALT 14 U/L (13-61) 06/30/19 09:00 Alkaline Phosphatase 92 U/L (45-117) 06/30/19 09:00 Total Protein 5.5 g/dl (6.4-8.2) L 06/30/19 09:00 Albumin 3.1 g/dl (3.4-5.0) L 06/30/19 09:00 Valproic Acid 56.1 ug/mL (50-100) 06/30/19 08:10 RPR Titer Nonreactive (NONREACTIVE) 06/30/19 09:00 lab noted Assessment: 07/01/19 10:38 alcohol and benzo withdrawal Plan: valium regimen
[2019-07-01] MEDS: THIAMINE HCL 100 MG TABLET (FP) PO SCH (22:35)
[2019-07-01] MEDS: MELATONIN 5 MG TABLETS PO PRN (22:36)
[2019-07-02] MEDS ORDERED: diazePAM 5 MG TABLET PO ONE ×3 (06:00→08:00)
[2019-07-02] MEDS ORDERED: METHADONE HCL 40 MG DISPERSABLE TABLET ONE (08:59)
[2019-07-02] MEDS ORDERED: METHADONE HCL 10 MG TABLET ONE (08:59)
[2019-07-02] MEDS: DIVALPROEX SODIUM 500 MG TABLET E.C. PO SCH ×2 (09:49→22:01)
[2019-07-02] MEDS: LACOSAMIDE 50 MG TABLET PO SCH ×2 (09:49→22:01)
[2019-07-02] MEDS: PRENATAL VITAMINS W/ FOLIC ACID TABLET (FP) PO SCH (09:50)
[2019-07-02] MEDS: NICOTINE 21 MG/24 HOURS TOPICAL PATCH TD SCH (09:50)
[2019-07-02] MEDS: METHADONE 80 MG, METHADONE 20 MG PO SCH (09:50)
[2019-07-02] MEDS ORDERED: METHADONE HCL 10 MG TABLET PO SCH (10:00)
[2019-07-02] MEDS: METHOCARBAMOL 500 MG TABLET PO PRN ×2 (14:41→22:04)
[2019-07-02] MEDS: diazePAM 5 MG TABLET PO PRN ×2 (14:41→22:04)
--- NOTE | 2019-07-02 14:41 | PN ---
S CIWA - CIWA Score Nausea/Vomitin-Mild Nausea/No Vomiting Muscle Tremors: 2 Anxiety: 2 Agitation: 1-Slight > Activity Paroxysmal Sweats: 2 Orientation: 0-Oriented Tacttile Disturbances: 2-Mild Itch/Numbness/Burn Auditory Disturbances: 0-None Visual Disturbances: 0-None Headache: 0-None Present CIWA-Ar Total Score: 10 [facility] Progress Note (SOAP) Subjective: shakes, sweats, lbp Objective: 07/02/19 14:42 Vital Signs Temperature 97.4 F L 07/02/19 13:24 Pulse Rate 59 L 07/02/19 13:24 Respiratory Rate 18 07/02/19 13:24 Blood Pressure 123/83 07/02/19 13:24 O2 Sat by Pulse Oximetry (%) Laboratory Tests 06/30/19 06/30/19 06/30/19 08:10 09:00 09:00 WBC 4.1 RBC 3.68 L Hgb 12.1 Hct 35.6 D MCV 96.7 H MCH 32.9 MCHC 34.0 RDW 13.8 Plt Count 102 L MPV 9.2 Sodium 140 Potassium 3.8 Chloride 103 Carbon Dioxide 32 Anion Gap 6 L BUN 19.8 H Creatinine 0.8 Est GFR (CKD-EPI)AfAm 140.90 Est GFR (CKD-EPI)NonAf 121.57 Random Glucose 99 Calcium 8.6 Total Bilirubin 0.3 AST 12 L ALT 14 Alkaline Phosphatase 92 Total Protein 5.5 L Albumin 3.1 L Valproic Acid 56.1 RPR Titer 06/30/19 09:00 WBC RBC Hgb Hct MCV MCH MCHC RDW Plt Count MPV Sodium Potassium Chloride Carbon Dioxide Anion Gap BUN Creatinine Est GFR (CKD-EPI)AfAm Est GFR (CKD-EPI)NonAf Random Glucose Calcium Total Bilirubin AST ALT Alkaline Phosphatase Total Protein Albumin Valproic Acid RPR Titer Nonreactive pt aox3 ambulating well in nad anxiety - mild Assessment: 07/02/19 14:43 withdrawal sx's willextend detox 1 additional day. Plan: cont detox increase fluids valium 5mg on 07/03/19 am d/c in am
[2019-07-02] MEDS: hydrOXYzine PAMOATE 25 MG CAPSULE (FP) PO PRN (17:12)
[2019-07-02] MEDS: THIAMINE HCL 100 MG TABLET (FP) PO SCH (22:01)
[2019-07-02] MEDS: MELATONIN 5 MG TABLETS PO PRN (22:04)
[2019-07-03] MEDS: hydrOXYzine PAMOATE 25 MG CAPSULE (FP) PO PRN (06:32)
[2019-07-03] MEDS: METHOCARBAMOL 500 MG TABLET PO PRN ×2 (06:33→11:36)
[2019-07-03] MEDS ORDERED: diazePAM 5 MG TABLET PO ONE (08:00)
[2019-07-03 10:03] VITALS: BP 100/69; PULSE 100; TEMP 98.1
[2019-07-03] MEDS: LACOSAMIDE 50 MG TABLET PO SCH (11:00)
[2019-07-03] MEDS: PRENATAL VITAMINS W/ FOLIC ACID TABLET (FP) PO SCH (11:00)
[2019-07-03] MEDS: NICOTINE 21 MG/24 HOURS TOPICAL PATCH TD SCH (11:00)
[2019-07-03] MEDS: METHADONE 80 MG, METHADONE 20 MG PO SCH (11:00)
[2019-07-03] MEDS: DIVALPROEX SODIUM 500 MG TABLET E.C. PO SCH (11:00)
[2019-07-03] MEDS ORDERED: METHADONE HCL 10 MG TABLET ONE (11:33)
[2019-07-03] MEDS ORDERED: METHADONE HCL 40 MG DISPERSABLE TABLET ONE (11:33)
--- NOTE | 2019-07-03 14:08 | DS ---
[facility] Detox Discharge Summary Admission Date: 06/30/19 Discharge Date: 07/03/19 - History Present History: Opioid Dependence, Sedative Dependence, MMTP Additional Comments: [facility] FOR AFTERCARE. PATIENT WAS DISCHARGED FROM DETOX UNIT TO BE TAKEN OVER TO REHAB UNIT IN STABLE MEDICAL CONDITION. Pertinent Past History: History of Seizures, History of Depression, MMTP, Dehydration, Nicotine Dependence. - Physical Exam Results Vital Signs: Vital Signs Temperature 98.1 F 07/03/19 10:02 Pulse Rate 100 H 07/03/19 10:02 Respiratory Rate 07/03/19 10:02 Blood Pressure 100/69 07/03/19 10:02 O2 Sat by Pulse Oximetry (%) Pertinent Admission Physical Exam Findings: WITHDRAWAL SYMPTOMS. Laboratory Tests 06/30/19 06/30/19 06/30/19 08:10 09:00 09:00 WBC 4.1 RBC 3.68 L Hgb 12.1 Hct 35.6 D MCV 96.7 H MCH 32.9 MCHC 34.0 RDW 13.8 Plt Count 102 L MPV 9.2 Sodium 140 Potassium 3.8 Chloride 103 Carbon Dioxide 32 Anion Gap 6 L BUN 19.8 H Creatinine 0.8 Est GFR (CKD-EPI)AfAm 140.90 Est GFR (CKD-EPI)NonAf 121.57 Random Glucose 99 Calcium 8.6 Total Bilirubin 0.3 AST 12 L ALT 14 Alkaline Phosphatase 92 Total Protein 5.5 L Albumin 3.1 L Valproic Acid 56.1 RPR Titer 06/30/19 09:00 WBC RBC Hgb Hct MCV MCH MCHC RDW Plt Count MPV Sodium Potassium Chloride Carbon Dioxide Anion Gap BUN Creatinine Est GFR (CKD-EPI)AfAm Est GFR (CKD-EPI)NonAf Random Glucose Calcium Total Bilirubin AST ALT Alkaline Phosphatase Total Protein Albumin Valproic Acid RPR Titer Nonreactive LABS NOTED. - Treatment Hospital Course: Detox Protocol Followed, Detoxed Safely, Responded well, Discharged Condition Good, Rehab Referral Accepted Patient has Accepted a Rehab Referral to: [facility] [place] - Medication Discharge Medications: Ambulatory Orders Vitamins (r) - 1 tab PO DAILY #30 tablet 07/24/17 Lacosamide [Vimpat -] 50 mg PO BID 06/29/19 Mirtazapine [Remeron -] 45 mg PO HS 06/29/19 Divalproex [Depakote -] 500 mg PO BID #60 tablet.ec 07/02/19 - Diagnosis (1) Alcohol use disorder Status: Acute (2) Dehydration Status: Acute (3) Heroin abuse Status: Acute (4) Methadone maintenance therapy patient Status: Chronic (5) Uncomplicated sedative, hypnotic or anxiolytic withdrawal Status: Acute (6) Epilepsy Status: Chronic Qualifiers: Epilepsy type: unspecified Intractability: not intractable Status epilepticus: without status epilepticus Qualified Code(s): G40.909 - Epilepsy , unspecified, not intractable, without status epilepticus (7) Nicotine dependence Status: Chronic Qualifiers: Nicotine product type: cigarettes Substance use status: uncomplicated Qualified Code(s): F17.210 - Nicotine dependence, cigarettes, uncomplicated - AMA Did Patient Leave Against Medical Advice: No
== END 2019-07-03 11:52 | disposition other institution (70) | DRG 773 ==
LOC: YASAS 17:25 → Y3N 06-30 04:11 → Y6N 07-03 00:24
PROVIDERS: ADMIT Allergy & Immunology; ATTEND Allergy & Immunology
PROC: HZ2ZZZZ Detoxification Services for Substance Abuse Treatment (ICD-10-PCS; principal; 2019-06-30)
DX: F13.230 Sedative, hypnotic or anxiolytic dependence with withdrawal, uncomplicated (principal); F11.20 Opioid dependence, uncomplicated; F10.10 Alcohol abuse, uncomplicated; F17.210 Nicotine dependence, cigarettes, uncomplicated; E86.0 Dehydration; G40.909 Epilepsy, unspecified, not intractable, without status epilepticus; R63.4 Abnormal weight loss
CPT/HCPCS: 36415; 80053; 80164; 85027; 86593; 93005; 93010

== ENCOUNTER 2019-07-03 11:59 | Inpatient (IN) | payer OTHER ==
[2019-07-03] MEDS ORDERED: MAGNESIUM HYDROX 2400MG/30ML ORAL SUSPENSION 30 ML CUP PO PRN (14:13)
[2019-07-03] MEDS ORDERED: MAGNESIUM CITRATE 300 ML BOTTLE PO PRN (14:13)
[2019-07-03] MEDS ORDERED: guaiFENesin 200 MG/10 ML 10 ML UNIT-DOSE CUPS PO PRN (14:13)
[2019-07-03] MEDS ORDERED: P-EPHED 60MG/TRIPROLIDI 2.5MG TABLET PO PRN (14:13)
--- NOTE | 2019-07-03 14:13 | HP ---
[facility] Rehab Assess/Revision - Admission History Admitted to Rehab from: [facility] Date of Admission to Rehab: 07/03/2019 - Vital signs Vital Signs: NOTED; STABLE. - Findings Detox History & Physical reviewed: Yes Concur with findings: Yes Comments/Additional Findings: PATIENT'S MEDICAL / MEDICATION HISTORY REVIEWED PRIOR TO DISCHARGE FROM DETOX UNIT. PATIENT WAS DISCHARGED FROM DETOX UNIT TO BE TAKEN OVER TO REHAB UNIT IN STABLE MEDICAL CONDITION. Inpatient Rehab Admission - Rehab Decision to Admit Inpatient rehab admission?: Yes - Initial Determination Are CD services needed?: Yes Free of communicable disease: Yes Not in need of hospitalization: Yes - Rehab Admission Criteria Previous failed treatment: Yes Poor recovery environment: Yes Comorbidities: Yes Lacks judgement: Yes Patient is meeting Inpatient Rehab admission criteria:: Yes
[2019-07-03] MEDS ORDERED: MINERAL OIL/PETROLAT/WATER TOPICAL CREAM 454 GM JAR TP PRN (14:42)
[2019-07-03] MEDS ORDERED: PT OWN MED DRAWER 7, Y5N ONE (20:06)
[2019-07-03] MEDS: METHOCARBAMOL 500 MG TABLET PO SCH (21:44)
[2019-07-03] MEDS: THIAMINE HCL 100 MG TABLET (FP) PO SCH (21:44)
[2019-07-03] MEDS: DIVALPROEX SODIUM 500 MG TABLET E.C. PO SCH (21:44)
[2019-07-03] MEDS: LACOSAMIDE 50 MG TABLET PO SCH (21:45)
[2019-07-03] MEDS: MELATONIN 5 MG TABLETS PO PRN (21:45)
[2019-07-04] MEDS ORDERED: METHADONE HCL 40 MG DISPERSABLE TABLET ONE (05:35)
[2019-07-04] MEDS ORDERED: METHADONE HCL 10 MG TABLET ONE (05:35)
[2019-07-04] MEDS ORDERED: METHADONE HCL 10 MG TABLET PO SCH (06:00)
[2019-07-04] MEDS ORDERED: METHADONE 80 MG, METHADONE 20 MG PO SCH (06:00)
[2019-07-04] MEDS: LACOSAMIDE 50 MG TABLET PO SCH ×2 (10:14→23:08)
[2019-07-04] MEDS: PRENATAL VITAMINS W/ FOLIC ACID TABLET (FP) PO SCH (10:14)
[2019-07-04] MEDS: DIVALPROEX SODIUM 500 MG TABLET E.C. PO SCH ×2 (10:14→23:08)
[2019-07-04] MEDS: METHOCARBAMOL 500 MG TABLET PO SCH ×2 (10:16→23:08)
[2019-07-04] MEDS: NICOTINE 14 MG/24 HOURS TOPICAL PATCH TD SCH (11:19)
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
--- NOTE | 2019-07-04 13:43 | PN ---
[facility] Progress Note Note: called by nurse for pt w/reported anxiety , sitting on the floor states he doesn't know what is going on, denies physical complaints , AAO x3 . ROLL HANDLER Chucky called and in attendance . Vistaril 50 mg q 4 hrs prn ordered.
[2019-07-04] MEDS: hydrOXYzine PAMOATE 50 MG CAPSULE (FP) PO PRN (14:00)
--- NOTE | 2019-07-04 14:14 | PN ---
[facility] Progress Note Note: Psychiatric nurse practitioner note: Call received concerning patient who is complaining of anxiety. Upon arrival on the unit patient was found sitting on the floor appearing anxious. Mr. Fonseca stated to narrative writer. ' I don't think i can walk." When asked what happen patient stated, "I don't know. I don't want to talk about it. I don't want to be alone." Stated, " I have a history of seizure. I think i had one. i' m not sure. i'm scared of having one again." Vital signs within normal limits. Patient alert + oriented X3. Patient noted to become calmer throughout the conversation but still guarded as there other things he refuses to elaborate on. As per nursing staff patient reported having a nightmare while taking a nap which resulted in flashbacks. Patient denies thoughts or urges to hurt self or others. Stated that he wants to continue with rehab. Patient has vistaril 50mg q4h ordered.
[2019-07-04] MEDS: MIRTAZAPINE 15 MG TABLET (FP) PO SCH (23:08)
[2019-07-04] MEDS: THIAMINE HCL 100 MG TABLET (FP) PO SCH (23:09)
--- NOTE | 2019-07-05 00:29 | PN ---
[facility] Progress Note Note: Patient is being transferred to emergency room for further evaluation status post a seizure activity Vital Signs Temperature 97.8 F 07/04/19 06:48 Pulse Rate 86 07/04/19 21:00 Respiratory Rate 18 07/04/19 21:00 Blood Pressure 130/61 07/04/19 21:00 O2 Sat by Pulse Oximetry (%) Action: Awaiting transportation to ER
[2019-07-05] MEDS: IBUPROFEN 400 MG TABLET (FP) PO PRN (03:35)
[2019-07-05] MEDS: hydrOXYzine PAMOATE 50 MG CAPSULE (FP) PO PRN ×2 (03:35→07:45)
[2019-07-05] MEDS ORDERED: DIVALPROEX SODIUM 500 MG TABLET E.C. PO ONE (07:26)
[2019-07-05] MEDS: NICOTINE 14 MG/24 HOURS TOPICAL PATCH TD SCH (10:36)
[2019-07-05] MEDS: METHADONE 80 MG, METHADONE 20 MG PO SCH (10:37)
[2019-07-05] MEDS ORDERED: METHADONE HCL 40 MG DISPERSABLE TABLET ONE (10:37)
[2019-07-05] MEDS ORDERED: METHADONE HCL 10 MG TABLET ONE (10:37)
[2019-07-05] MEDS: DIVALPROEX SODIUM 500 MG TABLET E.C. PO SCH ×2 (10:38→21:15)
[2019-07-05] MEDS: PRENATAL VITAMINS W/ FOLIC ACID TABLET (FP) PO SCH (10:38)
[2019-07-05] MEDS: LACOSAMIDE 50 MG TABLET PO SCH ×2 (10:56→21:15)
[2019-07-05] MEDS: METHOCARBAMOL 500 MG TABLET PO SCH ×2 (14:50→21:15)
[2019-07-05] MEDS ORDERED: PT OWN MED DRAWER 7, Y5N ONE (18:59)
[2019-07-05] MEDS: THIAMINE HCL 100 MG TABLET (FP) PO SCH (21:15)
[2019-07-05] MEDS: MIRTAZAPINE 15 MG TABLET (FP) PO SCH (21:15)
[2019-07-06] MEDS: METHADONE 80 MG, METHADONE 20 MG PO SCH ×2 (06:44→09:48)
[2019-07-06] MEDS: DIVALPROEX SODIUM 500 MG TABLET E.C. PO SCH ×2 (07:23→17:43)
[2019-07-06] MEDS: LACOSAMIDE 50 MG TABLET PO SCH ×2 (07:23→17:43)
[2019-07-06] MEDS ORDERED: METHADONE HCL 40 MG DISPERSABLE TABLET ONE (08:54)
[2019-07-06] MEDS ORDERED: METHADONE HCL 10 MG TABLET ONE (08:54)
[2019-07-06] MEDS: NICOTINE 14 MG/24 HOURS TOPICAL PATCH TD SCH (09:48)
[2019-07-06] MEDS: METHOCARBAMOL 500 MG TABLET PO SCH ×2 (09:48→21:27)
[2019-07-06] MEDS: PRENATAL VITAMINS W/ FOLIC ACID TABLET (FP) PO SCH (09:48)
[2019-07-06] MEDS: MAG HYDROX/AL HYDROX/SIMETH 30 ML UNIT-DOSE CUP PO PRN (11:04)
--- NOTE | 2019-07-06 13:19 | PN ---
[facility] Progress Note Note: patient reporting groin rash and lack of appetite. States the rash is similar to one he had with bathing suit. Denies sexual activity for the past 2 years. States he has a hx of being a picky eater, hx of no appetite, is presently getting ensure with meals. P/E: General: no apparent distress Skin: clear ABD: +BS, non-tender, non-distended. BMI- underweight At 18.1. Genital: deferred at patient request A/P: Loss of appetite: Started periactin, continue ensure Groin rash: tinactin ordered
[2019-07-06] MEDS: TOLNAFTATE 1% POWDER 45 GM POW TP SCH ×2 (15:00→21:28)
[2019-07-06] MEDS: CYPROHEPTADINE HCL 4 MG TABLET PO SCH (16:20)
[2019-07-06] MEDS: MIRTAZAPINE 15 MG TABLET (FP) PO SCH (21:27)
[2019-07-06] MEDS: THIAMINE HCL 100 MG TABLET (FP) PO SCH (21:27)
[2019-07-06] MEDS: MELATONIN 5 MG TABLETS PO PRN (21:27)
[2019-07-07] MEDS: DIVALPROEX SODIUM 500 MG TABLET E.C. PO SCH ×2 (06:16→17:40)
[2019-07-07] MEDS: LACOSAMIDE 50 MG TABLET PO SCH ×2 (06:16→17:40)
[2019-07-07] MEDS: CYPROHEPTADINE HCL 4 MG TABLET PO SCH ×3 (06:16→16:47)
[2019-07-07] MEDS: NICOTINE 14 MG/24 HOURS TOPICAL PATCH TD SCH (09:46)
[2019-07-07] MEDS: METHOCARBAMOL 500 MG TABLET PO SCH ×2 (09:47→21:15)
[2019-07-07] MEDS: PANTOPRAZOLE 40 MG TABLET PO SCH (09:47)
[2019-07-07] MEDS ORDERED: METHADONE HCL 10 MG TABLET ONE (09:47)
[2019-07-07] MEDS: METHADONE 80 MG, METHADONE 20 MG PO SCH (09:47)
[2019-07-07] MEDS ORDERED: METHADONE HCL 40 MG DISPERSABLE TABLET ONE (09:47)
[2019-07-07] MEDS: PRENATAL VITAMINS W/ FOLIC ACID TABLET (FP) PO SCH (09:47)
[2019-07-07] MEDS: TOLNAFTATE 1% POWDER 45 GM POW TP SCH ×2 (09:48→21:16)
[2019-07-07] MEDS: MIRTAZAPINE 15 MG TABLET (FP) PO SCH (21:15)
[2019-07-07] MEDS: MELATONIN 5 MG TABLETS PO PRN (21:15)
[2019-07-07] MEDS: THIAMINE HCL 100 MG TABLET (FP) PO SCH (21:15)
[2019-07-08] MEDS: hydrOXYzine PAMOATE 50 MG CAPSULE (FP) PO PRN ×2 (02:23→16:55)
[2019-07-08] MEDS: IBUPROFEN 400 MG TABLET (FP) PO PRN (02:23)
[2019-07-08] MEDS: DIVALPROEX SODIUM 500 MG TABLET E.C. PO SCH ×2 (06:09→17:01)
[2019-07-08] MEDS: LACOSAMIDE 50 MG TABLET PO SCH ×2 (06:09→17:01)
[2019-07-08] MEDS: CYPROHEPTADINE HCL 4 MG TABLET PO SCH ×3 (06:09→17:02)
[2019-07-08] MEDS: NICOTINE 14 MG/24 HOURS TOPICAL PATCH TD SCH (10:46)
[2019-07-08] MEDS: PRENATAL VITAMINS W/ FOLIC ACID TABLET (FP) PO SCH (10:46)
[2019-07-08] MEDS: PANTOPRAZOLE 40 MG TABLET PO SCH (10:46)
[2019-07-08] MEDS: METHADONE 80 MG, METHADONE 20 MG PO SCH (10:47)
[2019-07-08] MEDS ORDERED: METHADONE HCL 10 MG TABLET ONE (10:47)
[2019-07-08] MEDS ORDERED: METHADONE HCL 40 MG DISPERSABLE TABLET ONE (10:47)
[2019-07-08] MEDS: METHOCARBAMOL 500 MG TABLET PO SCH ×2 (10:47→21:15)
[2019-07-08] MEDS: TOLNAFTATE 1% POWDER 45 GM POW TP SCH ×2 (10:50→22:06)
[2019-07-08] MEDS: LOPERAMIDE HCL 2 MG CAPSULE PO PRN (18:44)
[2019-07-08] MEDS: MIRTAZAPINE 15 MG TABLET (FP) PO SCH (21:15)
[2019-07-08] MEDS: THIAMINE HCL 100 MG TABLET (FP) PO SCH (21:15)
[2019-07-08] MEDS: MELATONIN 5 MG TABLETS PO PRN (21:15)
[2019-07-08] MEDS: MAG HYDROX/AL HYDROX/SIMETH 30 ML UNIT-DOSE CUP PO PRN (21:16)
[2019-07-09] MEDS: LACOSAMIDE 50 MG TABLET PO SCH ×2 (05:54→17:00)
[2019-07-09] MEDS: DIVALPROEX SODIUM 500 MG TABLET E.C. PO SCH ×2 (05:54→17:00)
[2019-07-09] MEDS: hydrOXYzine PAMOATE 50 MG CAPSULE (FP) PO PRN ×3 (05:55→21:33)
[2019-07-09] MEDS: CYPROHEPTADINE HCL 4 MG TABLET PO SCH ×3 (06:24→16:59)
[2019-07-09] MEDS ORDERED: METHADONE HCL 40 MG DISPERSABLE TABLET ONE (09:41)
[2019-07-09] MEDS ORDERED: METHADONE HCL 10 MG TABLET ONE (09:41)
[2019-07-09] MEDS: METHADONE 80 MG, METHADONE 20 MG PO SCH (09:42)
[2019-07-09] MEDS: METHOCARBAMOL 500 MG TABLET PO SCH ×2 (09:42→21:32)
[2019-07-09] MEDS: PRENATAL VITAMINS W/ FOLIC ACID TABLET (FP) PO SCH (09:42)
[2019-07-09] MEDS: PANTOPRAZOLE 40 MG TABLET PO SCH (09:42)
[2019-07-09] MEDS: NICOTINE 14 MG/24 HOURS TOPICAL PATCH TD SCH (09:43)
[2019-07-09] MEDS: TOLNAFTATE 1% POWDER 45 GM POW TP SCH ×2 (09:45→21:34)
[2019-07-09] MEDS: THIAMINE HCL 100 MG TABLET (FP) PO SCH (21:32)
[2019-07-09] MEDS: MIRTAZAPINE 15 MG TABLET (FP) PO SCH (21:32)
[2019-07-09] MEDS: MELATONIN 5 MG TABLETS PO PRN (21:32)
[2019-07-10] MEDS: LACOSAMIDE 50 MG TABLET PO SCH ×2 (06:35→17:05)
[2019-07-10] MEDS: DIVALPROEX SODIUM 500 MG TABLET E.C. PO SCH ×2 (06:35→17:04)
[2019-07-10] MEDS: CYPROHEPTADINE HCL 4 MG TABLET PO SCH ×3 (06:35→16:55)
[2019-07-10] MEDS ORDERED: METHADONE HCL 40 MG DISPERSABLE TABLET ONE (08:41)
[2019-07-10] MEDS ORDERED: METHADONE HCL 10 MG TABLET ONE (08:41)
[2019-07-10] MEDS: PRENATAL VITAMINS W/ FOLIC ACID TABLET (FP) PO SCH (09:39)
[2019-07-10] MEDS: PANTOPRAZOLE 40 MG TABLET PO SCH (09:39)
[2019-07-10] MEDS: METHOCARBAMOL 500 MG TABLET PO SCH (09:39)
[2019-07-10] MEDS: NICOTINE 14 MG/24 HOURS TOPICAL PATCH TD SCH (09:39)
[2019-07-10] MEDS: METHADONE 80 MG, METHADONE 20 MG PO SCH (09:40)
[2019-07-10] MEDS: TOLNAFTATE 1% POWDER 45 GM POW TP SCH ×2 (10:06→21:21)
[2019-07-10] MEDS: MENTHOL/PHENOL 1 EACH UD MM PRN (11:50)
[2019-07-10] MEDS: MAG HYDROX/AL HYDROX/SIMETH 30 ML UNIT-DOSE CUP PO PRN (11:51)
[2019-07-10] MEDS: hydrOXYzine PAMOATE 50 MG CAPSULE (FP) PO PRN (14:40)
[2019-07-10] MEDS: ACETAMINOPHEN 325 MG TABLET (FP) PO PRN (17:54)
[2019-07-10] MEDS: MELATONIN 5 MG TABLETS PO PRN (21:18)
[2019-07-10] MEDS: THIAMINE HCL 100 MG TABLET (FP) PO SCH (21:18)
[2019-07-10] MEDS: MIRTAZAPINE 15 MG TABLET (FP) PO SCH (21:18)
[2019-07-10] MEDS ORDERED: METHOCARBAMOL 500 MG TABLET PO ONE (22:12)
[2019-07-11] MEDS: DIVALPROEX SODIUM 500 MG TABLET E.C. PO SCH ×2 (06:21→17:08)
[2019-07-11] MEDS: LACOSAMIDE 50 MG TABLET PO SCH ×2 (06:21→17:08)
[2019-07-11] MEDS: CYPROHEPTADINE HCL 4 MG TABLET PO SCH ×3 (06:21→17:08)
[2019-07-11] MEDS ORDERED: METHADONE HCL 10 MG TABLET ONE (08:32)
[2019-07-11] MEDS ORDERED: METHADONE HCL 40 MG DISPERSABLE TABLET ONE (08:32)
[2019-07-11] MEDS: PANTOPRAZOLE 40 MG TABLET PO SCH (09:28)
[2019-07-11] MEDS: PRENATAL VITAMINS W/ FOLIC ACID TABLET (FP) PO SCH (09:28)
[2019-07-11] MEDS: METHADONE 80 MG, METHADONE 20 MG PO SCH (09:28)
[2019-07-11] MEDS: METHOCARBAMOL 500 MG TABLET PO PRN ×3 (09:29→21:26)
[2019-07-11] MEDS: NICOTINE 14 MG/24 HOURS TOPICAL PATCH TD SCH (09:29)
[2019-07-11] MEDS: TOLNAFTATE 1% POWDER 45 GM POW TP SCH ×2 (09:45→21:29)
[2019-07-11] MEDS: hydrOXYzine PAMOATE 50 MG CAPSULE (FP) PO PRN (15:56)
--- NOTE | 2019-07-11 16:08 | PN ---
[facility] Progress Note Note: Patient is referred for right ear pain and sore throat with some difficulty swallowing. Patient reports pain in ear as 7-8/10, he reports this is a frequent occurrence going back to his childhood. Patient reports swollen lymph nodes as well with intermittent non- productive cough. He denies fever, chills, chest pain, SOB, N/V PE Vital Signs Temperature 98.3 F 07/11/19 16:16 Pulse Rate 78 07/11/19 16:16 Respiratory Rate 18 07/11/19 16:16 Blood Pressure 132/71 07/11/19 16:16 O2 Sat by Pulse Oximetry (%) HEENT:AT/NC, no conjunctiva injection, positive tragal tenderness in the right ear, slight redness noted to the tympanic membranen no nasal congestion. Oral mucosa moist and pink, uvula midline with no exudates,no lymphadenopathy CVS:S1S2, RRR CHEST: Lungs clear in all betancur AP Acute otitis media Amoxicillin 500mg PO TID x 7 days d/w nursing
[2019-07-11] MEDS: MIRTAZAPINE 15 MG TABLET (FP) PO SCH (21:26)
[2019-07-11] MEDS: THIAMINE HCL 100 MG TABLET (FP) PO SCH (21:26)
[2019-07-11] MEDS: MELATONIN 5 MG TABLETS PO PRN (21:26)
[2019-07-11] MEDS: AMOXICILLIN 500 MG CAPSULE (FP) PO SCH (21:27)
[2019-07-11] MEDS: IBUPROFEN 400 MG TABLET (FP) PO PRN (21:27)
[2019-07-12] MEDS: AMOXICILLIN 500 MG CAPSULE (FP) PO SCH ×3 (06:00→21:50)
[2019-07-12] MEDS: LACOSAMIDE 50 MG TABLET PO SCH ×2 (06:00→18:05)
[2019-07-12] MEDS: CYPROHEPTADINE HCL 4 MG TABLET PO SCH ×3 (06:00→16:38)
[2019-07-12] MEDS: DIVALPROEX SODIUM 500 MG TABLET E.C. PO SCH ×2 (06:00→18:05)
[2019-07-12] MEDS: PANTOPRAZOLE 40 MG TABLET PO SCH (09:40)
[2019-07-12] MEDS: PRENATAL VITAMINS W/ FOLIC ACID TABLET (FP) PO SCH (09:40)
[2019-07-12] MEDS ORDERED: METHADONE HCL 40 MG DISPERSABLE TABLET ONE (09:41)
[2019-07-12] MEDS: NICOTINE 14 MG/24 HOURS TOPICAL PATCH TD SCH (09:41)
[2019-07-12] MEDS: METHADONE 80 MG, METHADONE 20 MG PO SCH (09:41)
[2019-07-12] MEDS ORDERED: METHADONE HCL 10 MG TABLET ONE (09:41)
[2019-07-12] MEDS: TOLNAFTATE 1% POWDER 45 GM POW TP SCH ×2 (09:44→21:53)
[2019-07-12] MEDS: COLLOIDAL OATMEAL 1 EACH PACKET TP SCH (09:44)
--- NOTE | 2019-07-12 09:55 | PN ---
[facility] Progress Note Note: Patient seen for referral for cough with green sputum. Patient evaluated by PLASTIC MOLDING OPERATOR Sasha Griffin over the weekend for earache and dx with Otitis Media. Started on Amoxicillin. Patient states he has chills but denies fever. + c/o sore throat and wheezing. Vital Signs Temperature 98.6 F 07/12/19 06:56 Pulse Rate 62 07/12/19 06:56 Respiratory Rate 16 07/12/19 06:56 Blood Pressure 115/72 07/12/19 06:56 O2 Sat by Pulse Oximetry (%) PE: alert and oriented x 3 skin warm and dry +perrla, eoms intact bl b/l ear canal intact, TM pearly rothman, no redness or discharge car s1s2 resp cta bl, no wheezing or rales ext full rom, amb ad jhon A/P productive cough will continue robitussin prn amoxicillin in progress check cxr monitor clinically
[2019-07-12] MEDS: METHOCARBAMOL 500 MG TABLET PO PRN ×2 (12:27→21:52)
[2019-07-12] MEDS: hydrOXYzine PAMOATE 50 MG CAPSULE (FP) PO PRN ×2 (12:27→21:52)
[2019-07-12] MEDS: MIRTAZAPINE 15 MG TABLET (FP) PO SCH (21:50)
[2019-07-12] MEDS: MELATONIN 5 MG TABLETS PO PRN (21:53)
[2019-07-12] MEDS: THIAMINE HCL 100 MG TABLET (FP) PO SCH (21:54)
[2019-07-13] MEDS: CYPROHEPTADINE HCL 4 MG TABLET PO SCH ×3 (06:31→16:25)
[2019-07-13] MEDS: AMOXICILLIN 500 MG CAPSULE (FP) PO SCH ×3 (06:31→21:14)
[2019-07-13] MEDS: DIVALPROEX SODIUM 500 MG TABLET E.C. PO SCH ×2 (06:31→17:55)
[2019-07-13] MEDS: LACOSAMIDE 50 MG TABLET PO SCH ×2 (06:31→17:55)
[2019-07-13] MEDS ORDERED: METHADONE HCL 10 MG TABLET ONE (09:01)
[2019-07-13] MEDS ORDERED: METHADONE HCL 40 MG DISPERSABLE TABLET ONE (09:01)
[2019-07-13] MEDS: PANTOPRAZOLE 40 MG TABLET PO SCH (09:34)
[2019-07-13] MEDS: METHADONE 80 MG, METHADONE 20 MG PO SCH (09:34)
[2019-07-13] MEDS: METHOCARBAMOL 500 MG TABLET PO PRN ×3 (09:34→21:15)
[2019-07-13] MEDS: hydrOXYzine PAMOATE 50 MG CAPSULE (FP) PO PRN ×3 (09:34→21:15)
[2019-07-13] MEDS: PRENATAL VITAMINS W/ FOLIC ACID TABLET (FP) PO SCH (09:34)
[2019-07-13] MEDS: NICOTINE 14 MG/24 HOURS TOPICAL PATCH TD SCH (09:37)
[2019-07-13] MEDS: COLLOIDAL OATMEAL 1 EACH PACKET TP SCH (10:35)
[2019-07-13] MEDS: TOLNAFTATE 1% POWDER 45 GM POW TP SCH ×2 (10:36→21:16)
--- NOTE | 2019-07-13 11:57 | PN ---
[facility] Progress Note (SOAP) Subjective: Continues to c/o cough and chest congestion. Was treated for an ear infection over the weekend and is on amoxicillin. CXR does not show any pathology. Objective: P/E; General: No apparent distress HEENTM: PERRLA, nares-clear, sinus- non-tender, throat-radu Lungs: clear Heart: s1 s2 07/13/19 11:54 Assessment: Cough 07/13/19 11:55 Plan: Continue amoxicillin Encouraged patient to take robitussin as ordered humidify room (cup of H2O on radiator. Increase fluids. Continue to monitor.
[2019-07-13] MEDS ORDERED: COLLOIDAL OATMEAL 1 EACH PACKET TP SCH (12:00)
[2019-07-13] MEDS: MAG HYDROX/AL HYDROX/SIMETH 30 ML UNIT-DOSE CUP PO PRN (18:53)
[2019-07-13] MEDS: IBUPROFEN 400 MG TABLET (FP) PO PRN (18:54)
[2019-07-13] MEDS: MIRTAZAPINE 15 MG TABLET (FP) PO SCH (21:14)
[2019-07-13] MEDS: THIAMINE HCL 100 MG TABLET (FP) PO SCH (21:14)
[2019-07-13] MEDS: MELATONIN 5 MG TABLETS PO PRN (21:14)
[2019-07-14] MEDS: LACOSAMIDE 50 MG TABLET PO SCH ×2 (06:28→17:48)
[2019-07-14] MEDS: CYPROHEPTADINE HCL 4 MG TABLET PO SCH ×3 (06:28→16:30)
[2019-07-14] MEDS: DIVALPROEX SODIUM 500 MG TABLET E.C. PO SCH ×2 (06:28→17:48)
[2019-07-14] MEDS: AMOXICILLIN 500 MG CAPSULE (FP) PO SCH ×3 (06:28→21:25)
[2019-07-14] MEDS: PRENATAL VITAMINS W/ FOLIC ACID TABLET (FP) PO SCH (09:45)
[2019-07-14] MEDS: PANTOPRAZOLE 40 MG TABLET PO SCH (09:45)
[2019-07-14] MEDS ORDERED: METHADONE HCL 10 MG TABLET ONE (09:45)
[2019-07-14] MEDS: hydrOXYzine PAMOATE 50 MG CAPSULE (FP) PO PRN ×2 (09:45→21:25)
[2019-07-14] MEDS ORDERED: METHADONE HCL 40 MG DISPERSABLE TABLET ONE (09:45)
[2019-07-14] MEDS: METHADONE 80 MG, METHADONE 20 MG PO SCH (09:46)
[2019-07-14] MEDS: TOLNAFTATE 1% POWDER 45 GM POW TP SCH ×2 (09:46→23:00)
[2019-07-14] MEDS: NICOTINE 14 MG/24 HOURS TOPICAL PATCH TD SCH (09:46)
[2019-07-14] MEDS: METHOCARBAMOL 500 MG TABLET PO PRN ×2 (14:18→21:24)
[2019-07-14] MEDS: THIAMINE HCL 100 MG TABLET (FP) PO SCH (21:25)
[2019-07-14] MEDS: MIRTAZAPINE 15 MG TABLET (FP) PO SCH (21:25)
[2019-07-14] MEDS: IBUPROFEN 400 MG TABLET (FP) PO PRN (21:25)
[2019-07-14] MEDS: MELATONIN 5 MG TABLETS PO PRN (21:26)
[2019-07-15] MEDS: CYPROHEPTADINE HCL 4 MG TABLET PO SCH ×3 (06:16→16:35)
[2019-07-15] MEDS: AMOXICILLIN 500 MG CAPSULE (FP) PO SCH ×3 (06:16→21:19)
[2019-07-15] MEDS: LACOSAMIDE 50 MG TABLET PO SCH ×2 (06:17→18:21)
[2019-07-15] MEDS: DIVALPROEX SODIUM 500 MG TABLET E.C. PO SCH ×2 (06:17→18:15)
[2019-07-15] MEDS ORDERED: METHADONE HCL 10 MG TABLET ONE (09:14)
[2019-07-15] MEDS ORDERED: METHADONE HCL 40 MG DISPERSABLE TABLET ONE (09:14)
[2019-07-15] MEDS: hydrOXYzine PAMOATE 50 MG CAPSULE (FP) PO PRN ×2 (09:30→21:19)
[2019-07-15] MEDS: PRENATAL VITAMINS W/ FOLIC ACID TABLET (FP) PO SCH (09:30)
[2019-07-15] MEDS: METHADONE 80 MG, METHADONE 20 MG PO SCH (09:30)
[2019-07-15] MEDS: PANTOPRAZOLE 40 MG TABLET PO SCH (09:30)
[2019-07-15] MEDS: METHOCARBAMOL 500 MG TABLET PO PRN ×3 (09:30→21:19)
[2019-07-15] MEDS: NICOTINE 14 MG/24 HOURS TOPICAL PATCH TD SCH (09:30)
[2019-07-15] MEDS: TOLNAFTATE 1% POWDER 45 GM POW TP SCH ×2 (09:31→21:20)
[2019-07-15] MEDS: MIRTAZAPINE 15 MG TABLET (FP) PO SCH (21:18)
[2019-07-15] MEDS: MELATONIN 5 MG TABLETS PO PRN (21:18)
[2019-07-15] MEDS: THIAMINE HCL 100 MG TABLET (FP) PO SCH (21:18)
[2019-07-16] MEDS: AMOXICILLIN 500 MG CAPSULE (FP) PO SCH ×3 (06:29→23:52)
[2019-07-16] MEDS: LACOSAMIDE 50 MG TABLET PO SCH ×2 (06:29→17:19)
[2019-07-16] MEDS: DIVALPROEX SODIUM 500 MG TABLET E.C. PO SCH ×2 (06:29→17:19)
[2019-07-16] MEDS: CYPROHEPTADINE HCL 4 MG TABLET PO SCH ×3 (06:29→16:20)
[2019-07-16] MEDS ORDERED: METHADONE HCL 40 MG DISPERSABLE TABLET ONE (09:36)
[2019-07-16] MEDS ORDERED: METHADONE HCL 10 MG TABLET ONE (09:36)
[2019-07-16] MEDS: NICOTINE 14 MG/24 HOURS TOPICAL PATCH TD SCH (09:37)
[2019-07-16] MEDS: PRENATAL VITAMINS W/ FOLIC ACID TABLET (FP) PO SCH (09:37)
[2019-07-16] MEDS: METHADONE 80 MG, METHADONE 20 MG PO SCH (09:37)
[2019-07-16] MEDS: PANTOPRAZOLE 40 MG TABLET PO SCH (09:37)
[2019-07-16] MEDS: TOLNAFTATE 1% POWDER 45 GM POW TP SCH ×2 (09:37→23:58)
[2019-07-16] MEDS: METHOCARBAMOL 500 MG TABLET PO PRN ×3 (09:39→23:54)
[2019-07-16] MEDS: hydrOXYzine PAMOATE 50 MG CAPSULE (FP) PO PRN (13:58)
[2019-07-16] MEDS: LOPERAMIDE HCL 2 MG CAPSULE PO PRN (14:57)
--- NOTE | 2019-07-16 15:36 | PN ---
S Progress Note Note: PATIENT C/O ITCHING TO GROWN AREA AND URINARY FREQUENCY AT NIGHT (3-4X). PATIENT DENIES BURNING UPON URINATION, PENILE DISCHARGE HX OF DM/PROSTATE PROBLEMS. Vital Signs Temperature 97.7 F 07/16/19 07:24 Pulse Rate 69 07/16/19 07:24 Respiratory Rate 18 07/16/19 07:24 Blood Pressure 117/67 07/16/19 07:24 O2 Sat by Pulse Oximetry (%) PE: (EXAM PERFORMED WITH CARLOS CASTREJON RN PRESENT) ALERT AND ORIENTED X 3 SKIN WARM AND DRY GI FLAT, ND GROIN SMALL, HEALING PIN-POINT OPEN AREA (LIKELY FROM SCRATCHING) ON LOWER ABDOMINAL, B/L GROIN AREA. NO SURROUNDING REDNESS OR SWELLING NOTED A/P: HEALING OPEN AREA, LIKELY OLD SCRATCH OKEEFE NOCTURIA WILL ORDER BACITRACIN BID TP X 7 DAYS START DITROPAN XL 5MG HS MONITOR CLINICALLY
[2019-07-16] MEDS ORDERED: TRIMETHOBENZAMIDE HCL 200MG/2ML INJ IM ONE (23:46)
[2019-07-16] MEDS ORDERED: ONDANSETRON *ODT* 4 MG TABLET SL PRN (23:47)
[2019-07-16] MEDS: MIRTAZAPINE 15 MG TABLET (FP) PO SCH (23:52)
[2019-07-16] MEDS: THIAMINE HCL 100 MG TABLET (FP) PO SCH (23:52)
[2019-07-16] MEDS: MELATONIN 5 MG TABLETS PO PRN (23:52)
[2019-07-16] MEDS: OXYBUTYNIN CHLORIDE 5 MG TABLET PO SCH (23:52)
[2019-07-16] MEDS: BACITRACIN 0.9 GM PACKET TP SCH (23:58)
[2019-07-17] MEDS: LACOSAMIDE 50 MG TABLET PO SCH ×2 (07:09→18:06)
[2019-07-17] MEDS: CYPROHEPTADINE HCL 4 MG TABLET PO SCH ×3 (07:09→18:06)
[2019-07-17] MEDS: AMOXICILLIN 500 MG CAPSULE (FP) PO SCH ×3 (07:09→21:21)
[2019-07-17] MEDS: DIVALPROEX SODIUM 500 MG TABLET E.C. PO SCH ×2 (07:09→18:06)
[2019-07-17] MEDS: PANTOPRAZOLE 40 MG TABLET PO SCH (10:28)
[2019-07-17] MEDS: PRENATAL VITAMINS W/ FOLIC ACID TABLET (FP) PO SCH (10:28)
[2019-07-17] MEDS: hydrOXYzine PAMOATE 50 MG CAPSULE (FP) PO PRN ×2 (10:28→21:22)
[2019-07-17] MEDS: NICOTINE 14 MG/24 HOURS TOPICAL PATCH TD SCH (10:28)
[2019-07-17] MEDS ORDERED: METHADONE HCL 10 MG TABLET ONE (10:30)
[2019-07-17] MEDS: METHADONE 80 MG, METHADONE 20 MG PO SCH (10:30)
[2019-07-17] MEDS ORDERED: METHADONE HCL 40 MG DISPERSABLE TABLET ONE (10:30)
[2019-07-17] MEDS: METHOCARBAMOL 500 MG TABLET PO PRN ×2 (10:35→21:22)
[2019-07-17] MEDS: BACITRACIN 0.9 GM PACKET TP SCH ×2 (10:52→21:22)
[2019-07-17] MEDS: TOLNAFTATE 1% POWDER 45 GM POW TP SCH ×2 (10:52→21:22)
[2019-07-17] MEDS ORDERED: PT OWN MED DRAWER 7, Y5N ONE ×2 (10:53→20:07)
[2019-07-17] MEDS: ACETAMINOPHEN 325 MG TABLET (FP) PO PRN (14:10)
[2019-07-17] MEDS: THIAMINE HCL 100 MG TABLET (FP) PO SCH (21:21)
[2019-07-17] MEDS: OXYBUTYNIN CHLORIDE 5 MG TABLET PO SCH (21:21)
[2019-07-17] MEDS: MIRTAZAPINE 15 MG TABLET (FP) PO SCH (21:21)
[2019-07-18] MEDS: AMOXICILLIN 500 MG CAPSULE (FP) PO SCH ×2 (05:56→14:37)
[2019-07-18] MEDS: LACOSAMIDE 50 MG TABLET PO SCH ×2 (05:56→18:33)
[2019-07-18] MEDS: DIVALPROEX SODIUM 500 MG TABLET E.C. PO SCH ×2 (05:56→18:33)
[2019-07-18] MEDS: CYPROHEPTADINE HCL 4 MG TABLET PO SCH ×3 (06:20→18:33)
[2019-07-18] MEDS ORDERED: METHADONE HCL 10 MG TABLET ONE (09:34)
[2019-07-18] MEDS ORDERED: METHADONE HCL 40 MG DISPERSABLE TABLET ONE (09:34)
[2019-07-18] MEDS: PRENATAL VITAMINS W/ FOLIC ACID TABLET (FP) PO SCH (09:35)
[2019-07-18] MEDS: hydrOXYzine PAMOATE 50 MG CAPSULE (FP) PO PRN ×2 (09:35→21:59)
[2019-07-18] MEDS: METHADONE 80 MG, METHADONE 20 MG PO SCH (09:35)
[2019-07-18] MEDS: METHOCARBAMOL 500 MG TABLET PO PRN ×2 (09:36→21:59)
[2019-07-18] MEDS: NICOTINE 14 MG/24 HOURS TOPICAL PATCH TD SCH (09:36)
[2019-07-18] MEDS: PANTOPRAZOLE 40 MG TABLET PO SCH (09:36)
[2019-07-18] MEDS: TOLNAFTATE 1% POWDER 45 GM POW TP SCH ×2 (09:39→21:27)
[2019-07-18] MEDS: BACITRACIN 0.9 GM PACKET TP SCH ×2 (09:39→21:26)
[2019-07-18] MEDS: MAG HYDROX/AL HYDROX/SIMETH 30 ML UNIT-DOSE CUP PO PRN ×2 (16:00→21:27)
[2019-07-18] MEDS: ACETAMINOPHEN 325 MG TABLET (FP) PO PRN (16:00)
[2019-07-18] MEDS ORDERED: PT OWN MED DRAWER 7, Y5N ONE ×2 (17:03→22:11)
[2019-07-18] MEDS: OXYBUTYNIN CHLORIDE 5 MG TABLET PO SCH (21:26)
[2019-07-18] MEDS: MIRTAZAPINE 15 MG TABLET (FP) PO SCH (21:26)
[2019-07-18] MEDS: THIAMINE HCL 100 MG TABLET (FP) PO SCH (21:27)
[2019-07-19] MEDS: CYPROHEPTADINE HCL 4 MG TABLET PO SCH ×3 (06:33→16:25)
[2019-07-19] MEDS: LACOSAMIDE 50 MG TABLET PO SCH ×2 (06:34→19:00)
[2019-07-19] MEDS: DIVALPROEX SODIUM 500 MG TABLET E.C. PO SCH ×2 (06:34→19:00)
[2019-07-19] MEDS ORDERED: METHADONE HCL 40 MG DISPERSABLE TABLET ONE (09:17)
[2019-07-19] MEDS ORDERED: METHADONE HCL 10 MG TABLET ONE (09:17)
[2019-07-19] MEDS: NICOTINE 14 MG/24 HOURS TOPICAL PATCH TD SCH (09:38)
[2019-07-19] MEDS: METHADONE 80 MG, METHADONE 20 MG PO SCH (09:38)
[2019-07-19] MEDS: PRENATAL VITAMINS W/ FOLIC ACID TABLET (FP) PO SCH (09:38)
[2019-07-19] MEDS: TOLNAFTATE 1% POWDER 45 GM POW TP SCH ×2 (09:39→21:28)
[2019-07-19] MEDS: PANTOPRAZOLE 40 MG TABLET PO SCH (09:39)
[2019-07-19] MEDS: METHOCARBAMOL 500 MG TABLET PO PRN ×3 (09:40→21:27)
[2019-07-19] MEDS: hydrOXYzine PAMOATE 50 MG CAPSULE (FP) PO PRN ×3 (09:40→21:27)
[2019-07-19] MEDS: BACITRACIN 0.9 GM PACKET TP SCH ×2 (09:40→21:28)
[2019-07-19] MEDS: LOPERAMIDE HCL 2 MG CAPSULE PO PRN (12:37)
[2019-07-19] MEDS: OXYBUTYNIN CHLORIDE 5 MG TABLET PO SCH (21:27)
[2019-07-19] MEDS: MELATONIN 5 MG TABLETS PO PRN (21:27)
[2019-07-19] MEDS: MIRTAZAPINE 15 MG TABLET (FP) PO SCH (21:27)
[2019-07-19] MEDS: THIAMINE HCL 100 MG TABLET (FP) PO SCH (21:27)
[2019-07-20] MEDS: DIVALPROEX SODIUM 500 MG TABLET E.C. PO SCH ×2 (06:05→17:09)
[2019-07-20] MEDS: CYPROHEPTADINE HCL 4 MG TABLET PO SCH ×3 (06:05→17:09)
[2019-07-20] MEDS: LACOSAMIDE 50 MG TABLET PO SCH ×2 (06:05→17:09)
[2019-07-20] MEDS: hydrOXYzine PAMOATE 50 MG CAPSULE (FP) PO PRN ×2 (10:38→21:25)
[2019-07-20] MEDS: METHOCARBAMOL 500 MG TABLET PO PRN ×2 (10:38→21:25)
[2019-07-20] MEDS: PRENATAL VITAMINS W/ FOLIC ACID TABLET (FP) PO SCH (10:38)
[2019-07-20] MEDS: NICOTINE 14 MG/24 HOURS TOPICAL PATCH TD SCH (10:38)
[2019-07-20] MEDS: PANTOPRAZOLE 40 MG TABLET PO SCH (10:38)
[2019-07-20] MEDS ORDERED: METHADONE HCL 10 MG TABLET ONE (10:39)
[2019-07-20] MEDS ORDERED: METHADONE HCL 40 MG DISPERSABLE TABLET ONE (10:39)
[2019-07-20] MEDS: METHADONE 80 MG, METHADONE 20 MG PO SCH (10:39)
[2019-07-20] MEDS: BACITRACIN 0.9 GM PACKET TP SCH ×2 (10:40→21:27)
[2019-07-20] MEDS: TOLNAFTATE 1% POWDER 45 GM POW TP SCH ×2 (10:42→21:27)
[2019-07-20] MEDS ORDERED: PT OWN MED DRAWER 7, Y5N ONE (16:00)
[2019-07-20] MEDS: IBUPROFEN 400 MG TABLET (FP) PO PRN (18:27)
[2019-07-20] MEDS: OXYBUTYNIN CHLORIDE 5 MG TABLET PO SCH (21:25)
[2019-07-20] MEDS: THIAMINE HCL 100 MG TABLET (FP) PO SCH (21:25)
[2019-07-20] MEDS: MAG HYDROX/AL HYDROX/SIMETH 30 ML UNIT-DOSE CUP PO PRN (21:25)
[2019-07-20] MEDS: MIRTAZAPINE 15 MG TABLET (FP) PO SCH (21:25)
[2019-07-20] MEDS: MELATONIN 5 MG TABLETS PO PRN (21:25)
[2019-07-21] MEDS: DIVALPROEX SODIUM 500 MG TABLET E.C. PO SCH ×2 (05:59→18:40)
[2019-07-21] MEDS: CYPROHEPTADINE HCL 4 MG TABLET PO SCH ×3 (05:59→16:25)
[2019-07-21] MEDS: LACOSAMIDE 50 MG TABLET PO SCH ×2 (06:00→18:40)
[2019-07-21] MEDS ORDERED: METHADONE HCL 40 MG DISPERSABLE TABLET ONE (10:28)
[2019-07-21] MEDS: hydrOXYzine PAMOATE 50 MG CAPSULE (FP) PO PRN ×2 (10:28→21:06)
[2019-07-21] MEDS: PANTOPRAZOLE 40 MG TABLET PO SCH (10:28)
[2019-07-21] MEDS ORDERED: METHADONE HCL 10 MG TABLET ONE (10:28)
[2019-07-21] MEDS: PRENATAL VITAMINS W/ FOLIC ACID TABLET (FP) PO SCH (10:28)
[2019-07-21] MEDS: METHOCARBAMOL 500 MG TABLET PO PRN ×2 (10:28→21:05)
[2019-07-21] MEDS: BACITRACIN 0.9 GM PACKET TP SCH ×2 (10:30→21:07)
[2019-07-21] MEDS: METHADONE 80 MG, METHADONE 20 MG PO SCH (10:30)
[2019-07-21] MEDS: NICOTINE 14 MG/24 HOURS TOPICAL PATCH TD SCH (10:30)
[2019-07-21] MEDS: TOLNAFTATE 1% POWDER 45 GM POW TP SCH ×2 (11:15→21:07)
[2019-07-21] MEDS: MIRTAZAPINE 15 MG TABLET (FP) PO SCH (21:05)
[2019-07-21] MEDS: MELATONIN 5 MG TABLETS PO PRN (21:05)
[2019-07-21] MEDS: OXYBUTYNIN CHLORIDE 5 MG TABLET PO SCH (21:05)
[2019-07-21] MEDS: THIAMINE HCL 100 MG TABLET (FP) PO SCH (21:06)
[2019-07-22] MEDS: DIVALPROEX SODIUM 500 MG TABLET E.C. PO SCH ×2 (07:01→17:44)
[2019-07-22] MEDS: CYPROHEPTADINE HCL 4 MG TABLET PO SCH ×3 (07:01→16:51)
[2019-07-22] MEDS: LACOSAMIDE 50 MG TABLET PO SCH ×2 (07:01→17:44)
[2019-07-22] MEDS: NICOTINE 14 MG/24 HOURS TOPICAL PATCH TD SCH (10:43)
[2019-07-22] MEDS: PRENATAL VITAMINS W/ FOLIC ACID TABLET (FP) PO SCH (10:43)
[2019-07-22] MEDS: METHADONE 80 MG, METHADONE 20 MG PO SCH (10:43)
[2019-07-22] MEDS ORDERED: METHADONE HCL 10 MG TABLET ONE (10:43)
[2019-07-22] MEDS ORDERED: METHADONE HCL 40 MG DISPERSABLE TABLET ONE (10:43)
[2019-07-22] MEDS: PANTOPRAZOLE 40 MG TABLET PO SCH (10:44)
[2019-07-22] MEDS: TOLNAFTATE 1% POWDER 45 GM POW TP SCH ×2 (10:44→21:21)
[2019-07-22] MEDS: METHOCARBAMOL 500 MG TABLET PO PRN ×2 (10:46→21:22)
[2019-07-22] MEDS: hydrOXYzine PAMOATE 50 MG CAPSULE (FP) PO PRN ×2 (10:46→21:21)
[2019-07-22] MEDS: BACITRACIN 0.9 GM PACKET TP SCH ×2 (10:53→21:20)
[2019-07-22] MEDS: OXYBUTYNIN CHLORIDE 5 MG TABLET PO SCH (21:20)
[2019-07-22] MEDS: MIRTAZAPINE 15 MG TABLET (FP) PO SCH (21:20)
[2019-07-22] MEDS: THIAMINE HCL 100 MG TABLET (FP) PO SCH (21:21)
[2019-07-23] MEDS: CYPROHEPTADINE HCL 4 MG TABLET PO SCH ×3 (06:11→16:41)
[2019-07-23] MEDS: DIVALPROEX SODIUM 500 MG TABLET E.C. PO SCH ×2 (06:11→18:01)
[2019-07-23] MEDS: LACOSAMIDE 50 MG TABLET PO SCH ×2 (06:11→18:01)
[2019-07-23] MEDS: MENTHOL/PHENOL 1 EACH UD MM PRN (06:13)
[2019-07-23] MEDS: TOLNAFTATE 1% POWDER 45 GM POW TP SCH ×2 (10:50→21:19)
[2019-07-23] MEDS: METHADONE 80 MG, METHADONE 20 MG PO SCH (10:50)
[2019-07-23] MEDS: NICOTINE 14 MG/24 HOURS TOPICAL PATCH TD SCH (10:56)
[2019-07-23] MEDS: METHOCARBAMOL 500 MG TABLET PO PRN ×3 (10:56→21:17)
[2019-07-23] MEDS: PRENATAL VITAMINS W/ FOLIC ACID TABLET (FP) PO SCH (10:56)
[2019-07-23] MEDS ORDERED: METHADONE HCL 10 MG TABLET ONE (10:57)
[2019-07-23] MEDS: PANTOPRAZOLE 40 MG TABLET PO SCH (10:57)
[2019-07-23] MEDS ORDERED: METHADONE HCL 40 MG DISPERSABLE TABLET ONE (10:57)
[2019-07-23] MEDS: hydrOXYzine PAMOATE 50 MG CAPSULE (FP) PO PRN ×3 (10:57→21:17)
[2019-07-23] MEDS: BACITRACIN 0.9 GM PACKET TP SCH (11:08)
--- NOTE | 2019-07-23 14:12 | PN ---
Progress Note (short form) - Note Progress Note: Was called to see pt because of complaint of painful rash in groin area. Pt states he has had a rash in his groin, which is painful. States it has been there since he arrived at [facility]. Medical history of psoriasis. Has never had this before. No discharge, no drainage, no oozing, no open wound, no foul smell. Has not had sexual activity in > 1 year. On exam, L ventral penis with extremely slight erythema. No overt rash. 3 painful (no apparent tenderness to palpation on exam) pencil-eraser sized scabs on abdomen overlying symphysis pubis apparently from scratching. Pubic hair has been shaved recently. Scabbed lesions may be due to cuts from shaving vs possible ingrown hairs. Rest of exam benign. Pt is on bacitracin ointment therapy.
[2019-07-23] MEDS: MELATONIN 5 MG TABLETS PO PRN (21:16)
[2019-07-23] MEDS: MIRTAZAPINE 15 MG TABLET (FP) PO SCH (21:16)
[2019-07-23] MEDS: THIAMINE HCL 100 MG TABLET (FP) PO SCH (21:17)
[2019-07-23] MEDS: IBUPROFEN 400 MG TABLET (FP) PO PRN (21:18)
[2019-07-23] MEDS: OXYBUTYNIN CHLORIDE 5 MG TABLET PO SCH (21:18)
[2019-07-24] MEDS: CYPROHEPTADINE HCL 4 MG TABLET PO SCH ×3 (06:51→17:08)
[2019-07-24] MEDS: DIVALPROEX SODIUM 500 MG TABLET E.C. PO SCH ×2 (06:51→17:08)
[2019-07-24] MEDS: LACOSAMIDE 50 MG TABLET PO SCH ×2 (06:51→17:08)
[2019-07-24] MEDS ORDERED: METHADONE HCL 10 MG TABLET ONE (08:49)
[2019-07-24] MEDS ORDERED: METHADONE HCL 40 MG DISPERSABLE TABLET ONE (08:49)
[2019-07-24] MEDS ORDERED: PT OWN MED DRAWER 7, Y5N ONE (10:14)
[2019-07-24] MEDS: PANTOPRAZOLE 40 MG TABLET PO SCH (10:20)
[2019-07-24] MEDS: PRENATAL VITAMINS W/ FOLIC ACID TABLET (FP) PO SCH (10:20)
[2019-07-24] MEDS: METHADONE 80 MG, METHADONE 20 MG PO SCH (10:20)
[2019-07-24] MEDS: METHOCARBAMOL 500 MG TABLET PO PRN ×3 (10:21→21:36)
[2019-07-24] MEDS: hydrOXYzine PAMOATE 50 MG CAPSULE (FP) PO PRN ×3 (10:21→21:37)
[2019-07-24] MEDS: TOLNAFTATE 1% POWDER 45 GM POW TP SCH ×2 (10:44→21:38)
[2019-07-24] MEDS: NICOTINE 14 MG/24 HOURS TOPICAL PATCH TD SCH (10:44)
[2019-07-24] MEDS ORDERED: COLLOIDAL OATMEAL 1 BAR EACH TP SCH ×2 (12:30→13:00)
[2019-07-24] MEDS: MELATONIN 5 MG TABLETS PO PRN (21:36)
[2019-07-24] MEDS: THIAMINE HCL 100 MG TABLET (FP) PO SCH (21:36)
[2019-07-24] MEDS: MIRTAZAPINE 15 MG TABLET (FP) PO SCH (21:36)
[2019-07-24] MEDS: OXYBUTYNIN CHLORIDE 5 MG TABLET PO SCH (21:36)
[2019-07-25] MEDS: LACOSAMIDE 50 MG TABLET PO SCH ×2 (05:52→18:19)
[2019-07-25] MEDS: DIVALPROEX SODIUM 500 MG TABLET E.C. PO SCH ×2 (05:52→18:19)
[2019-07-25] MEDS: CYPROHEPTADINE HCL 4 MG TABLET PO SCH ×3 (06:45→16:39)
[2019-07-25] MEDS ORDERED: METHADONE HCL 10 MG TABLET ONE (08:26)
[2019-07-25] MEDS ORDERED: METHADONE HCL 40 MG DISPERSABLE TABLET ONE (08:26)
[2019-07-25] MEDS: PRENATAL VITAMINS W/ FOLIC ACID TABLET (FP) PO SCH (09:54)
[2019-07-25] MEDS: hydrOXYzine PAMOATE 50 MG CAPSULE (FP) PO PRN ×3 (09:54→21:12)
[2019-07-25] MEDS: NICOTINE 14 MG/24 HOURS TOPICAL PATCH TD SCH (09:54)
[2019-07-25] MEDS: METHOCARBAMOL 500 MG TABLET PO PRN ×3 (09:54→21:11)
[2019-07-25] MEDS: METHADONE 80 MG, METHADONE 20 MG PO SCH (09:54)
[2019-07-25] MEDS: PANTOPRAZOLE 40 MG TABLET PO SCH (09:54)
[2019-07-25] MEDS: TOLNAFTATE 1% POWDER 45 GM POW TP SCH ×2 (10:20→21:13)
[2019-07-25] MEDS: ACETAMINOPHEN 325 MG TABLET (FP) PO PRN ×2 (15:52→21:12)
[2019-07-25] MEDS: MELATONIN 5 MG TABLETS PO PRN (21:11)
[2019-07-25] MEDS: THIAMINE HCL 100 MG TABLET (FP) PO SCH (21:11)
[2019-07-25] MEDS: MIRTAZAPINE 15 MG TABLET (FP) PO SCH (21:11)
[2019-07-25] MEDS: OXYBUTYNIN CHLORIDE 5 MG TABLET PO SCH (21:12)
[2019-07-26] MEDS: DIVALPROEX SODIUM 500 MG TABLET E.C. PO SCH ×2 (06:03→17:54)
[2019-07-26] MEDS: LACOSAMIDE 50 MG TABLET PO SCH ×2 (06:03→17:54)
[2019-07-26] MEDS: CYPROHEPTADINE HCL 4 MG TABLET PO SCH ×3 (06:03→17:34)
--- NOTE | 2019-07-26 08:09 | PN ---
Teaching Attending Note Name of Resident: Sonido Melissa ATTENDING PHYSICIAN STATEMENT I saw and evaluated the patient. I reviewed the resident's note and discussed the case with the resident. I agree with the resident's findings and plan as documented. SUBJECTIVE: I agree with subjective findings of resident OBJECTIVE: I agree with objective findings of resident ASSESSMENT AND PLAN: Agree with admission and protocol to be used. Dr. Recinos
[2019-07-26] MEDS ORDERED: METHADONE HCL 40 MG DISPERSABLE TABLET ONE (09:37)
[2019-07-26] MEDS ORDERED: METHADONE HCL 10 MG TABLET ONE (09:37)
[2019-07-26] MEDS: PANTOPRAZOLE 40 MG TABLET PO SCH (09:37)
[2019-07-26] MEDS: TOLNAFTATE 1% POWDER 45 GM POW TP SCH ×2 (09:37→21:50)
[2019-07-26] MEDS: METHADONE 80 MG, METHADONE 20 MG PO SCH (09:37)
[2019-07-26] MEDS: NICOTINE 14 MG/24 HOURS TOPICAL PATCH TD SCH (09:37)
[2019-07-26] MEDS: PRENATAL VITAMINS W/ FOLIC ACID TABLET (FP) PO SCH (09:37)
[2019-07-26] MEDS: METHOCARBAMOL 500 MG TABLET PO PRN ×3 (09:38→21:27)
[2019-07-26] MEDS: ACETAMINOPHEN 325 MG TABLET (FP) PO PRN ×2 (13:03→17:54)
[2019-07-26] MEDS: hydrOXYzine PAMOATE 50 MG CAPSULE (FP) PO PRN ×2 (14:00→21:27)
--- NOTE | 2019-07-26 15:52 | PN ---
[facility] Progress Note Note: Patient c/o open area to groin. Vital Signs Temperature 98.5 F 07/26/19 06:46 Pulse Rate 72 07/26/19 06:46 Respiratory Rate 18 07/26/19 06:46 Blood Pressure 126/72 07/26/19 06:46 O2 Sat by Pulse Oximetry (%) PE alert and oriented x 3 skin warm and dry groin (examined with RN Mata present ) right side of pubic area with small open area, mild surrounding redness, no discharge ext full rom, amb ad jhon A/P folliculitis will start bactrim ds one tab bid x 7 days bacitracin tp daily monitor clinically
[2019-07-26] MEDS ORDERED: PT OWN MED DRAWER 7, Y5N ONE ×2 (17:33→18:56)
[2019-07-26] MEDS: THIAMINE HCL 100 MG TABLET (FP) PO SCH (21:26)
[2019-07-26] MEDS: SULFAMETHOXAZOLE/TRIMETHOPRIM 800MG/160MG D.S. TABLET PO SCH (21:27)
[2019-07-26] MEDS: MELATONIN 5 MG TABLETS PO PRN (21:27)
[2019-07-26] MEDS: OXYBUTYNIN CHLORIDE 5 MG TABLET PO SCH (21:27)
[2019-07-26] MEDS: MIRTAZAPINE 15 MG TABLET (FP) PO SCH (21:27)
[2019-07-27] MEDS: CYPROHEPTADINE HCL 4 MG TABLET PO SCH ×3 (06:10→16:35)
[2019-07-27] MEDS: LACOSAMIDE 50 MG TABLET PO SCH ×2 (06:10→18:50)
[2019-07-27] MEDS: DIVALPROEX SODIUM 500 MG TABLET E.C. PO SCH ×2 (06:10→18:50)
[2019-07-27] MEDS: TOLNAFTATE 1% POWDER 45 GM POW TP SCH ×2 (10:50→21:41)
[2019-07-27] MEDS ORDERED: METHADONE HCL 10 MG TABLET ONE (10:52)
[2019-07-27] MEDS ORDERED: METHADONE HCL 40 MG DISPERSABLE TABLET ONE (10:52)
[2019-07-27] MEDS: PRENATAL VITAMINS W/ FOLIC ACID TABLET (FP) PO SCH (10:54)
[2019-07-27] MEDS: METHOCARBAMOL 500 MG TABLET PO PRN ×3 (10:54→21:09)
[2019-07-27] MEDS: SULFAMETHOXAZOLE/TRIMETHOPRIM 800MG/160MG D.S. TABLET PO SCH ×2 (10:54→21:09)
[2019-07-27] MEDS: NICOTINE 14 MG/24 HOURS TOPICAL PATCH TD SCH (10:54)
[2019-07-27] MEDS: PANTOPRAZOLE 40 MG TABLET PO SCH (10:54)
[2019-07-27] MEDS: BACITRACIN 15 GM TUBE TOPICAL OINTMENT TP SCH (10:55)
[2019-07-27] MEDS: METHADONE 80 MG, METHADONE 20 MG PO SCH (10:55)
[2019-07-27] MEDS: hydrOXYzine PAMOATE 50 MG CAPSULE (FP) PO PRN ×3 (10:55→21:09)
--- NOTE | 2019-07-27 10:55 | PN ---
S Progress Note Note: Psychiatric nurse practitoner note: Psych consulted ordered in error. Consult was meant for medicine to evaluate a groin abscess.
[2019-07-27] MEDS: ACETAMINOPHEN 325 MG TABLET (FP) PO PRN ×2 (15:39→21:09)
[2019-07-27] MEDS: OXYBUTYNIN CHLORIDE 5 MG TABLET PO SCH (21:09)
[2019-07-27] MEDS: MIRTAZAPINE 15 MG TABLET (FP) PO SCH (21:09)
[2019-07-27] MEDS: THIAMINE HCL 100 MG TABLET (FP) PO SCH (21:09)
[2019-07-27] MEDS: MELATONIN 5 MG TABLETS PO PRN (21:09)
[2019-07-28] MEDS: DIVALPROEX SODIUM 500 MG TABLET E.C. PO SCH ×2 (06:09→17:10)
[2019-07-28] MEDS: CYPROHEPTADINE HCL 4 MG TABLET PO SCH ×3 (06:09→16:12)
[2019-07-28] MEDS: ACETAMINOPHEN 325 MG TABLET (FP) PO PRN (06:09)
[2019-07-28] MEDS: LACOSAMIDE 50 MG TABLET PO SCH ×2 (06:09→17:09)
--- NOTE | 2019-07-28 09:10 | DS ---
[facility] Rehab Discharge Summary - [facility] Rehab Discharge Summary Admission Date: 07/03/19 Discharge Date: 07/28/19 - History Present History: Alcohol dependence, Cannabis dependence, Opioid dependence Pertinent Past History: 28 years old with xanax dependence,mmtp 100 mgs/day,history of epilepsy - Discharge Physical Exam Vital Signs: Vital Signs Temperature 97.8 F 07/28/19 06:46 Pulse Rate 71 07/28/19 06:46 Respiratory Rate 18 07/28/19 06:46 Blood Pressure 111/62 07/28/19 06:46 O2 Sat by Pulse Oximetry (%) Pertinent Admission Physical Exam Findings: Physical General Appearance: No apparent distress HEENTM: PERRLA Respiratory: Lungs Clear, Neck: Yes: Supple, Cardiology: S1, S2 Abdominal: +Bowel Sounds, Non Tender, Soft Musculoskeletal: full weight bearing, steady gait 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 Will go to [facility] for aftercare.) Hospital Course: patient attended groups, had 1:1 with his counselor, was seen by psychiatry. Patient was seen and treated for a groin rash and chest congestion while in rehab with good results. - Medication Discharge Medications: Ambulatory Orders Vitamins (Sjr) - 1 tab PO DAILY #30 tablet 07/24/17 Lacosamide [Vimpat -] 50 mg PO BID 06/29/19 Mirtazapine [Remeron -] 45 mg PO HS 06/29/19 Divalproex [Depakote -] 500 mg PO BID #60 tablet.ec 07/02/19 - Medication-Assisted Treatment (MAT) Medication-Assisted Treatment (MAT): Yes MAT Follow-up Referral: Methadone MAT - Discharge Instructions Diet, activity, other medical instructions: Diet: as tolerated Activity: as tolerated Other medical instructions: Please follow up with aftercare referral. - Diagnosis (1) Alcohol use disorder Current Visit: Yes Status: Chronic (2) Cannabis dependence Current Visit: Yes Status: Chronic (3) Methadone maintenance therapy patient Current Visit: Yes Status: Chronic (4) Heroin abuse Current Visit: No Status: Chronic - Follow-up Referral Minutes to complete discharge: 20 - AMA Did Patient Leave Against Medical Advice: No
[2019-07-28] MEDS ORDERED: METHADONE HCL 40 MG DISPERSABLE TABLET ONE (10:26)
[2019-07-28] MEDS ORDERED: METHADONE HCL 10 MG TABLET ONE (10:26)
[2019-07-28] MEDS: SULFAMETHOXAZOLE/TRIMETHOPRIM 800MG/160MG D.S. TABLET PO SCH ×2 (10:27→21:24)
[2019-07-28] MEDS: hydrOXYzine PAMOATE 50 MG CAPSULE (FP) PO PRN ×3 (10:27→21:24)
[2019-07-28] MEDS: PRENATAL VITAMINS W/ FOLIC ACID TABLET (FP) PO SCH (10:27)
[2019-07-28] MEDS: METHOCARBAMOL 500 MG TABLET PO PRN ×3 (10:27→21:24)
[2019-07-28] MEDS: PANTOPRAZOLE 40 MG TABLET PO SCH (10:27)
[2019-07-28] MEDS: NICOTINE 14 MG/24 HOURS TOPICAL PATCH TD SCH (10:28)
[2019-07-28] MEDS: BACITRACIN 15 GM TUBE TOPICAL OINTMENT TP SCH (10:28)
[2019-07-28] MEDS: METHADONE 80 MG, METHADONE 20 MG PO SCH (10:28)
[2019-07-28] MEDS: TOLNAFTATE 1% POWDER 45 GM POW TP SCH ×2 (10:28→21:24)
--- NOTE | 2019-07-28 14:31 | PN ---
S Progress Note Note: Patient is scheduled for discharge tomorrow. Script for 30 days supply of Remeron 45 mg/hs will be electronically transmitted to [facility] at [address] [place] [address]
[2019-07-28] MEDS: MIRTAZAPINE 15 MG TABLET (FP) PO SCH (21:24)
[2019-07-28] MEDS: MELATONIN 5 MG TABLETS PO PRN (21:24)
[2019-07-28] MEDS: THIAMINE HCL 100 MG TABLET (FP) PO SCH (21:24)
[2019-07-28] MEDS: OXYBUTYNIN CHLORIDE 5 MG TABLET PO SCH (21:24)
[2019-07-29] MEDS: LACOSAMIDE 50 MG TABLET PO SCH (06:24)
[2019-07-29] MEDS: CYPROHEPTADINE HCL 4 MG TABLET PO SCH (06:24)
[2019-07-29] MEDS: DIVALPROEX SODIUM 500 MG TABLET E.C. PO SCH (06:24)
[2019-07-29 06:53] VITALS: BP 126/73; PULSE 81; TEMP 98.5
[2019-07-29] MEDS ORDERED: METHADONE HCL 10 MG TABLET ONE (08:59)
[2019-07-29] MEDS ORDERED: METHADONE HCL 40 MG DISPERSABLE TABLET ONE (08:59)
[2019-07-29] MEDS: BACITRACIN 15 GM TUBE TOPICAL OINTMENT TP SCH (09:08)
[2019-07-29] MEDS: PRENATAL VITAMINS W/ FOLIC ACID TABLET (FP) PO SCH (09:08)
[2019-07-29] MEDS: PANTOPRAZOLE 40 MG TABLET PO SCH (09:08)
[2019-07-29] MEDS: hydrOXYzine PAMOATE 50 MG CAPSULE (FP) PO PRN (09:08)
[2019-07-29] MEDS: SULFAMETHOXAZOLE/TRIMETHOPRIM 800MG/160MG D.S. TABLET PO SCH (09:08)
[2019-07-29] MEDS: METHADONE 80 MG, METHADONE 20 MG PO SCH (09:09)
[2019-07-29] MEDS: NICOTINE 14 MG/24 HOURS TOPICAL PATCH TD SCH (09:09)
[2019-07-29] MEDS: TOLNAFTATE 1% POWDER 45 GM POW TP SCH (09:09)
[2019-07-29] MEDS: METHOCARBAMOL 500 MG TABLET PO PRN (09:10)
== END 2019-07-29 10:06 | disposition home or self-care (01) | DRG 772 ==
LOC: YASAS 11:59 → Y3W 12:03 → Y3N 07-05 12:40 → Y3W 07-05 12:42
PROVIDERS: ADMIT Neuromusculoskeletal Medicine & OMM; ATTEND Neuromusculoskeletal Medicine & OMM
PROC: HZ42ZZZ Group Counseling for Substance Abuse Treatment, Cognitive-Behavioral (ICD-10-PCS; principal; 2019-07-03)
DX: F10.20 Alcohol dependence, uncomplicated (principal); F11.20 Opioid dependence, uncomplicated; F13.20 Sedative, hypnotic or anxiolytic dependence, uncomplicated; F12.20 Cannabis dependence, uncomplicated; F17.210 Nicotine dependence, cigarettes, uncomplicated; G40.909 Epilepsy, unspecified, not intractable, without status epilepticus; H66.91 Otitis media, unspecified, right ear; L73.8 Other specified follicular disorders; R35.1 Nocturia; Z79.01 Long term (current) use of anticoagulants
CPT/HCPCS: 71046-TC-FY

== ENCOUNTER 2019-07-04 21:49 | Emergency (ER) | payer OTHER ==
--- NOTE | 2019-07-04 22:14 | PDOC ---
History of Present Illness - General Chief Complaint: Seizure Stated Complaint: Seizure Time Seen by Provider: 07/04/19 22:03 - History of Present Illness Initial Comments: Mr. Fonseca is a 28 y/o male with PMH significant for seizure disorder and substance use disorder sent in from [facility] today s/p seizure. Reports that he felt an aura earlier this afternoon and went back to his room. Later on he felt an aura again, and woke up on the ground with EMS. His last seizure was around 6 months ago. At present, reports mild headache. Denies tongue biting, vision changes, fever, chills, chest pain, abdominal pain, shortness of breath. Denies urinary incontinence. SocHx: in rehab for klonopin use, last use 5 days ago, alcohol, marijuana, tobacco Meds: depakote, vimpat Past History - Past Medical History Allergies/Adverse Reactions: Allergies Allergy/AdvReac Type Severity Reaction Status Date / Time No Known Allergies Allergy Verified 07/04/19 22:00 Home Medications: Ambulatory Orders Vitamins (Sjr) - 1 tab PO DAILY #30 tablet 07/24/17 Lacosamide [Vimpat -] 50 mg PO BID 06/29/19 Mirtazapine [Remeron -] 45 mg PO HS 06/29/19 Divalproex [Depakote -] 500 mg PO BID #60 tablet.ec 07/02/19 Anemia: No Asthma: No Cancer: No Cardiac Disorders: No CVA: No COPD: No CHF: No Diabetes: No GI Disorders: No Disorders: No HTN: No Hypercholesterolemia: No Kidney Stones: No Liver Disease: No Seizures: Yes (LAST EPISODE 8 MONTHS AGO) Thyroid Disease: No - Surgical History Abdominal Surgery: No Appendectomy: No Cardiac Surgery: No Cholecystectomy: No Lung Surgery: No Neurologic Surgery: No Orthopedic Surgery: No - Reproductive History Testicular Surgery: No - Psycho Social/Smoking Cessation Hx Smoking History: Current every day smoker Have you smoked in the past 12 months: Yes Number of Cigarettes Smoked Daily: 12 Information on smoking cessation initiated: No 'Breaking Loose' booklet given: 06/30/19 Hx Alcohol Use: No (patient denies) Drug/Substance Use Hx: Yes (benzodiazepines) Substance Use Type: Tranquilizers Hx Substance Use Treatment: Yes Review of Systems - Review of Systems Comments:: GENERAL/CONSTITUTIONAL: No fever or chills. No weakness._ HEAD, EYES, EARS, NOSE AND THROAT: No change in vision. No change in hearing. No sore throat._ CARDIOVASCULAR: No chest pain or shortness of breath_ RESPIRATORY: Denies cough, hemoptysis_ GASTROINTESTINAL: No nausea, vomiting, diarrhea or constipation._ GENITOURINARY: No dysuria, frequency, or change in urination._ MUSCULOSKELETAL: No joint or muscle swelling or pain. No neck or back pain._ SKIN: No rash_ NEUROLOGIC: Reports mild headache. No vertigo, loss of consciousness, or change in strength/sensation._ ENDOCRINE: No increased thirst. No abnormal weight change_ HEMATOLOGIC/LYMPHATIC: No anemia, easy bleeding, or history of blood clots._ ALLERGIC/IMMUNOLOGIC: No hives or skin allergy._ *Physical Exam - Vital Signs Last Vital Signs Temp Pulse Resp BP Pulse Ox 98.3 F 110 H 20 124/78 99 07/04/19 21:58 07/04/19 21:58 07/04/19 21:58 07/04/19 21:58 07/04/19 21:58 - Physical Exam GENERAL: Awake, alert, and oriented to person/place/time, in no acute distress_ HEAD: No signs of trauma, normoc ephalic, atraumatic _ EYES: PERRLA, EOMI, sclera anicteric, conjunctiva clear_ ENT: Hearing grossly normal, nares patent, oropharynx clear without exudates. No uvular deviation. Moist mucosa_ NECK: Normal ROM, supple, no lymphadenopathy, JVD, or masses_ LUNGS: No distress, speaks in full sentences, clear to auscultation bilaterally _ HEART: Regular rate and rhythm, normal S1 and S2, no murmurs appreciated, peripheral pulses normal and equal bilaterally._ ABDOMEN: Soft, nontender, normoactive bowel sounds. No guarding, no rebound. No masses_ EXTREMITIES: Normal inspection, Normal range of motion, no edema. No clubbing or cyanosis_ NEUROLOGICAL: Cranial nerves II through XII grossly intact. Normal speech, normal gait, no focal sensorimotor deficits _ SKIN: Warm, Dry, normal turgor, no rashes or lesions noted_ ED Treatment Course - LABORATORY CBC & Chemistry Diagram: 07/04/19 22:32 Medical Decision Making - Medical Decision Making 07/04/19 22:43 28M hx of epilepsy, on depakote and vimpat, at [facility] for [facility] detox, presenting with seizure this evening. -bmp -ct head/neck -depakote level -tylenol, fluids 07/04/19 23:55 Labs reviewed. Laboratory Tests 07/04/19 07/04/19 22:32 22:32 Sodium 140 Potassium 3.8 Chloride 104 Carbon Dioxide 29 Anion Gap 7 L BUN 13.6 Creatinine 0.7 Est GFR (CKD-EPI)AfAm 148.85 Est GFR (CKD-EPI)NonAf 128.43 Random Glucose 91 Calcium 9.0 Valproic Acid 69.0 07/04/19 23:56 CT head and neck show no acute intracranial pathology and no fracture/ subluxation. 07/05/19 01:26 D/w Dr. Villeda. Pt's depakote level is therapeutic, and can be sent back to [facility]. Plan to d/c to [facility]. Return precautions given. All questions answered. Pt verbalized agreement and understanding of plan. Discharge - Discharge Information Problems reviewed: Yes Clinical Impression/Diagnosis: Seizure Condition: Stable Disposition: HOME - Admission No - Follow up/Referral - Patient Discharge Instructions Patient Printed Discharge Instructions: DI for Seizure Disorder -- Adult Additional Instructions: Please continue taking your anti-seizure medication as prescribed. If you experience any new, worsening, or concerning symptoms, including severe headache, disorientation, dizziness, change in vision or hearing, or any other concerns, please return to the emergency room. - Post Discharge Activity
[2019-07-04] MEDS ORDERED: SODIUM CHLORIDE 0.9% 500 ML INFUS.BAG IV ONE (22:31)
[2019-07-04] MEDS ORDERED: ACETAMINOPHEN 1000 MG/100 ML VIAL (NON FORMULARY) IVPB ONE (22:31)
--- NOTE | 2019-07-04 22:31 | PDOC ---
Documentation entered by Dawn Lind SCRIBE, acting as scribe for Lluvia Feng MD. Lluvia Feng MD: This documentation has been prepared by the scribe, Dawn Lind SCRIBE, under my direction and personally reviewed by me in its entirety. I confirm that the documentation accurately reflects all work, treatment, procedures, and medical decision making performed by me. Attending Attestation - Resident Resident Name: Asher Oleary - ED Attending Attestation I have performed the following: I have examined & evaluated the patient, The case was reviewed & discussed with the resident, I agree w/resident's findings & plan, Exceptions are as noted - HPI HPI: 07/04/19 22:06 PC for seizures. 07/04/19 22:30 28-year-old male brought in by ambulance from [facility] where he is in detox For seizure Patient takes Vimpat and Depakote for his seizures Patient has complaint of headache - Physicial Exam PE: 07/04/19 22:31 Thin 28-year-old male complaining of frontal headache Head no scalp lacerations evident Eyes pupils equal reactive to light and accommodation extraocular muscles intact Lungs are clear to auscultation CVS regular rate and rhythm Abdomen is nontender flat Skin is dry,extensive tatoos Neuro patient is alert and oriented x3, moving all extremities appropriately 07/04/19 22:34 07/04/19 22:34 - Medical Decision Making 07/04/19 22:35 28-year-old male brought in by ambulance from [facility] where he is in rehab for Xanax after having a seizure Past medical history also includes alcohol and heroin abuse He does get 100 mg of methadone daily Patient is on Depakote and Vimpat for his seizures We will send levels 07/04/19 22:36 - Depakote level was 56 on Jun 30 07/04/19 22:37 Plan CAT scan of the head 07/04/19 23:56 CAT scan of the head shows no acute intracranial abnormality No hemorrhage osseous structures are intact Basic chemistry is within normal limits 07/05/19 00:00 EXAM: CERVICAL SPINE CT W/O CONTR FINDINGS: Negative for cervical spine fracture or malalignment. Prominent osteophytes C3-4 07/05/19 00:09 07/05/19 01:[address] Villeda does not have any recommendations to change his current seizure medications so he will continue on Vimpat and Depakote Discharged back to [facility]
[2019-07-04] MEDS ORDERED: ACETAMINOPHEN INJECTION 100 ML IVPB ONE (22:44)
[2019-07-04 23:48] LABS: BLOOD UREA NITROGEN 13.6 mg/dL (7-18); CREATININE 0.7 mg/dL (0.55-1.3); POTASSIUM 3.8 mmol/L (3.5-5.1)
[2019-07-05 02:49] VITALS: BP 122/72; PULSE 70; TEMP 98.7
== END 2019-07-05 03:13 | disposition home or self-care (01) ==
LOC: JER 21:49
PROC: 3E033NZ Introduction of Analgesics, Hypnotics, Sedatives into Peripheral Vein, Percutaneous Approach (ICD-10-PCS; principal; 2019-07-04)
DX: G40.909 Epilepsy, unspecified, not intractable, without status epilepticus (principal); F13.10 Sedative, hypnotic or anxiolytic abuse, uncomplicated; F12.10 Cannabis abuse, uncomplicated; F11.10 Opioid abuse, uncomplicated; F17.210 Nicotine dependence, cigarettes, uncomplicated
CPT/HCPCS: 36415; 70450-TC; 72125-TC; 80048; 80164; 96374; 99284-25; J0131

== ENCOUNTER 2020-02-11 17:01 | Inpatient (IN) | payer OTHER ==
[2020-02-11 18:39] VITALS: BMI 24.6
--- NOTE | 2020-02-11 19:11 | HP ---
COWS - Scale Resting Pulse: 2= [place] 101-120 Sweatin=Flushed/Facial Moisture Restless Observation: 1= Difficult to Sit Still Pupil Size: 1= Pupils >than Normal Bone or Joint Aches: 4=Acute Joint/Muscle Pain Runny Nose/ Eye Tearin= Nasal Congestion GI Upset > 30mins: 1= Stomach Cramp Tremor Observation: 4= Gross Tremor/Twitching Yawning Observation: 1= 1-2x During Session Anxiety or Irritability: 2=Irritable/Anxious Goose Flesh Skin: 0=Smooth Skin COWS Score: 19 CIWA Score Nausea/Vomitin Muscle Tremors: 5 Anxiety: 4-Mod. Anxious/Guarded Agitation: 3 Paroxysmal Sweats: 3 Orientation: 0-Oriented Tacttile Disturbances: 0-None Auditory Disturbances: 0-None Visual Disturbances: 0-None Headache: 3-Moderate CIWA-Ar Total Score: 20 - Admission Criteria OASAS Guidelines: Admission for Medically Managed Detox: Requires at least one of the followin. CIWA greater than 12 2. Seizures within the past 24 hours 3. Delirium tremens within the past 24 hours 4. Hallucinations within the past 24 hours 5. Acute intervention needed for co occurring medical disorder 6. Acute intervention needed for co occurring psychiatric disorder 7. Severe withdrawal that cannot be handled at a lower level of care (continued vomiting, continued diarrhea, abnormal vital signs) requiring intravenous medication and/or fluids 8. Admitting History and Physical - Past Medical History CLINICAL BIOSTATISTICIAN: Yes: Seizure - Smoking History Smoking history: Current every day smoker Have you smoked in the past 12 months: Yes Aproximately how many cigarettes per day: 12 - Alcohol/Substance Use Hx Alcohol Use: No (patient denies) History of Substance Use: reports: Tranquilizers - Social History Occupation: unemployed Admission [facility] Chief Complaint: Seeking admission to detox from Xanax and heroin Allergies/Adverse Reactions: Allergies Allergy/AdvReac Type Severity Reaction Status Date / Time No Known Allergies Allergy Verified 02/11/20 21:18 History of Present Illness: 29 years old male with 10 years of opioid dependence and benzodiazepine dependence is seeking admission to detox. His last admission was for the period 06/30/2019 - 07/29/2019 and he reports that he relapsed right after discharge. He reports use of 10 bags of heroin and 6 x 2mg tablet Zanax daily. He reports medical history of epilepsy, crohn's disease, psych. history of anxiety, depression, insomnia and denies suicidal ideation at this time. He is unemployed, homeless and denies legal issues. He denies blackouts and history of overdose. Exam Limitations: No Limitations - Ebola screening Have you traveled outside of the country in the last 21 days: No Have you had contact with anyone from an Ebola affected area: No Have you been sick,other than usual withdrawal symptoms: No Do you have a fever: No - Review of Systems Constitutional: Chills, Malaise, Night Sweats, Changes in sleep EENT: reports: No Symptoms Reported Respiratory: reports: No Symptoms reported Cardiac: reports: No Symptoms Reported GI: reports: Nausea, Poor Appetite, Poor Fluid Intake, Abdominal cramping : reports: No Symptoms Reported Musculoskeletal: reports: Back Pain, Joint Pain, Muscle Pain Integumentary: reports: Dryness, Flushing Neuro: reports: Headache, Tremors Endocrine: reports: No Symptoms Reported Hematology: reports: No Symptoms Reported Psychiatric: reports: Orientated x3, Anxious, Depressed Other Systems: Reviewed and Negative Patient History - Patient Medical History Hx Anemia: No Hx Asthma: No Hx Chronic Obstructive Pulmonary Disease (COPD): No Hx Cancer: No Hx Cardiac Disorders: No Hx Congestive Heart Failure: No Hx Hypertension: No Hx Hypercholesterolemia: No HX Cerebrovascular Accident: No Hx Seizures: Yes (LAST EPISODE 7 MONTHS AGO) Hx Diabetes: No Hx Gastrointestinal Disorders: Yes (Crohn's disease) Hx Liver Disease: No Hx Genitourinary Disorders: No Hx Sexually Transmitted Disorders: No Hx Renal Disease (ESRD): No Hx Thyroid Disease: No Hx Human Immunodeficiency Virus (HIV): No (03/04 negative) Hx Hepatitis C: No (Negative 2016) Hx Depression: Yes Hx Suicide Attempt: No (Denies suicidal ideation at this time) Hx Bipolar Disorder: No Hx Schizophrenia: No - Patient Surgical History Past Surgical History: Yes Hx Neurologic Surgery: No Hx Cataract Extraction: No Hx Cardiac Surgery: No Hx Lung Surgery: No Hx Abdominal Surgery: No Hx Appendectomy: No Hx Cholecystectomy: No Hx Genitourinary Surgery: No Hx Orthopedic Surgery: No Other Surgical History: Right Ear surgery 2010 Anesthesia Reaction: No - PPD History Previous Implant?: Yes Documented Results: Negative w/proof Implanted On Prior [facility] Admission?: Yes Date: 05/15/19 Results: 0 MM PPD to be Administered?: No - Reproductive History Patient is a Female of Child Bearing Age (11 -55 yrs old): No (Male) - Smoking Cessation Smoking history: Current every day smoker Have you smoked in the past 12 months: Yes Aproximately how many cigarettes per day: 20 Hx Chewing Tobacco Use: No Initiated information on smoking cessation: Yes 'Breaking Loose' booklet given: 02/11/20 - Substance & Tx. History Hx Alcohol Use: Yes Hx Substance Use: Yes Substance Use Type: Alcohol, Heroin Hx Substance Use Treatment: Yes ([facility]) - Substances abused Alprazolam (Xanax) Substance route: Oral Frequency: Daily Amount used: 6 x 2mg tablet Age of first use: 18 Date of last use: 02/11/20 Heroin Substance route: Inhalation Frequency: Daily Amount used: 7-10 bags Age of first use: 18 Date of last use: 02/11/20 Admission Physical Exam BHS - Vital Signs Vital Signs: Vital Signs - 24 hr 02/11/20 18:38 Temperature 98.1 F Pulse Rate 109 H Respiratory 18 Rate Blood Pressure 135/85 - Physical General Appearance: Yes: Severe Distress, Tremorous, Irritable, Sweating, Anxious HEENTM: Yes: Within Normal Limits Respiratory: Yes: Lungs Clear, Normal Breath Sounds, No Respiratory Distress Neck: Yes: Within Normal Limits Breast: Yes: Breast Exam Deferred Cardiology: Yes: Tachycardia Abdominal: Yes: Normal Bowel Sounds, Protuberent Genitourinary: Yes: Within Normal Limits Back: Yes: Normal Inspection Musculoskeletal: Yes: Back pain, Muscle Pain Extremities: Yes: Tremors Neurological: Yes: Within Normal Limits Integumentary: Yes: Erythema Lymphatic: Yes: Within Normal Limits - Diagnostic (1) Opioid dependence with withdrawal Current Visit: Yes Status: Acute (2) Anxiety Current Visit: Yes Status: Chronic (3) Insomnia Current Visit: Yes Status: Chronic Qualifiers: Insomnia type: unspecified Qualified Code(s): G47.00 - Insomnia, unspecified (4) Nicotine dependence Current Visit: No Status: Chronic Qualifiers: Nicotine product type: cigarettes Substance use status: uncomplicated Qualified Code(s): F17.210 - Nicotine dependence, cigarettes, uncomplicated (5) Uncomplicated sedative, hypnotic or anxiolytic withdrawal Current Visit: Yes Status: Acute (6) Cannabis dependence Current Visit: Yes Status: Chronic (7) Depression Current Visit: Yes Status: Chronic Qualifiers: Depression Type: unspecified Qualified Code(s): F32.9 - Major depressive disorder, single episode, unspecified (8) Epilepsy Current Visit: Yes Status: Chronic Qualifiers: Epilepsy type: unspecified Intractability: not intractable Status epilepticus: without status epilepticus Qualified Code(s): G40.909 - Epilepsy, unspecified, not intractable, without status epilepticus Cleared for Admission [facility] - Detox or Rehab [facility] Level of Care: Medically Managed Detox Regimen/Protocol: Methadone/Valium Claeared for Rehab Admission: No Breathalyzer - Breathalyzer Breathalyzer: 0 Urine Drug Screen - Test Device Lot number: [id number] Expiration date: 09/21/21 - Control Is test valid?: Yes - Results Drug screen NEGATIVE: No Urine drug screen results: THC-Marijuana, FEN-Fentanyl, MOP-Opiates, BZO- Benzodiazepines Inpatient Rehab Admission - Rehab Decision to Admit Inpatient rehab admission?: No
[2020-02-11] MEDS ORDERED: MAGNESIUM CITRATE 300 ML BOTTLE PO PRN (19:24)
[2020-02-11] MEDS ORDERED: NICOTINE POLACRILEX 2 MG GUM BUC PRN (19:24)
[2020-02-11] MEDS ORDERED: BISMUTH SUBSALICYLATE 524 MG/30 ML UD PO PRN (19:24)
[2020-02-11] MEDS ORDERED: MAGNESIUM HYDROX 2400MG/30ML ORAL SUSPENSION 30 ML CUP PO PRN (19:24)
[2020-02-11] MEDS ORDERED: ACETAMINOPHEN 325 MG TABLET (FP) PO PRN (19:24)
[2020-02-11] MEDS ORDERED: MENTHOL/PHENOL 1 EACH UD MM PRN (19:24)
[2020-02-11] MEDS ORDERED: MAG HYDROX/AL HYDROX/SIMETH 30 ML UNIT-DOSE CUP PO PRN (19:24)
[2020-02-11] MEDS ORDERED: METHADONE HCL 10 MG TABLET (FOR DETOX USE ONLY) PO ONE (21:30)
[2020-02-11] MEDS ORDERED: ONDANSETRON *ODT* 4 MG TABLET SL ONE (21:30)
[2020-02-11] MEDS: DIVALPROEX SODIUM 500 MG TABLET E.C. PO SCH (22:40)
[2020-02-11] MEDS: diazePAM 5 MG TABLET PO SCH (22:41)
[2020-02-11] MEDS: MELATONIN 5 MG TABLETS PO SCH (22:41)
[2020-02-11] MEDS: LACOSAMIDE 50 MG TABLET PO SCH (22:41)
[2020-02-11] MEDS: THIAMINE HCL 100 MG TABLET (FP) PO SCH (22:42)
[2020-02-11] MEDS: ACETAMINOPHEN 325 MG TABLET (FP) PO PRN (22:43)
[2020-02-12] MEDS: diazePAM 5 MG TABLET PO SCH ×3 (06:57→22:42)
[2020-02-12] MEDS ORDERED: METHADONE HCL 10 MG TABLET (FOR DETOX USE ONLY) ONE (09:27)
[2020-02-12] MEDS ORDERED: METHADONE HCL 5 MG TABLET (FOR DETOX USE ONLY) ONE (09:27)
[2020-02-12] MEDS ORDERED: METHADONE (DETOX) 20 MG, METHADONE (DETOX) 5 MG PO ONE (10:00)
--- NOTE | 2020-02-12 10:07 | PN ---
S CIWA - CIWA Score Nausea/Vomitin-No Nausea/No Vomiting Muscle Tremors: 2 Anxiety: 3 Agitation: 1-Slight > Activity Paroxysmal Sweats: 3 Orientation: 0-Oriented Tacttile Disturbances: 0-None Auditory Disturbances: 0-None Visual Disturbances: 0-None Headache: 2-Mild CIWA-Ar Total Score: 11 BHS COWS - Scale Resting Pulse: 0= [place] 80 or Below Sweatin= Beads of Sweat on Face Restless Observation: 1= Difficult to Sit Still Pupil Size: 0= Normal to Room Light Bone or Joint Aches: 2= Severe Diffuse Aches Runny Nose/ Eye Tearin= None GI Upset > 30mins: 0= None Tremor Observation of Outstretched Hands: 2= Slight Tremor Visible Yawning Observation: 1= 1-2x During Session Anxiety or Irritability: 2=Irritable/Anxious Goose Flesh Skin: 0=Smooth Skin COWS Score: 11 S Progress Note (SOAP) Subjective: c/o irritability, anxiety, shakes, sweats, headache, and interrupted sleep. Objective: 02/12/20 10:06 Vital Signs 02/12/20 02/12/20 05:39 08:45 Temperature 97.0 F L 97.2 F L Pulse Rate 78 77 Respiratory 18 18 Rate Blood Pressure 101/65 111/69 O2 Sat by Pulse 98 Oximetry (%) Labs pending. Assessment: 02/12/20 10:06 AOX3, in no acute respiratory distress. Full ROM, ambulating in the unit. Withdrawal symptoms. Plan: continue detox.
--- NOTE | 2020-02-12 10:10 | EKG ---
Test Reason : Blood Pressure : / mmHG Vent. Rate : 097 BPM Atrial Rate : 097 BPM P-R Int : 134 ms QRS Dur : 082 ms QT Int : 330 ms P-R-T Axes : 070 -48 058 degrees QTc Int : 419 ms NORMAL SINUS RHYTHM LEFT AXIS DEVIATION ABNORMAL ECG WHEN COMPARED WITH ECG OF 30-JUN-2019 06:49, VENT. RATE HAS INCREASED BY 34 BPM Confirmed by DARIEL GILBERT MD ([id number]) on 02/12/2020 10:10:08 AM Referred By: Confirmed By:DARIEL GILBERT MD
[2020-02-12] MEDS: NICOTINE 21 MG/24 HOURS TOPICAL PATCH TD SCH (10:25)
[2020-02-12] MEDS: LACOSAMIDE 50 MG TABLET PO SCH ×2 (10:25→22:41)
[2020-02-12] MEDS: DIVALPROEX SODIUM 500 MG TABLET E.C. PO SCH ×2 (10:25→22:42)
[2020-02-12] MEDS: PRENATAL VITAMINS W/ FOLIC ACID TABLET (FP) PO SCH (10:25)
[2020-02-12] MEDS: ACETAMINOPHEN 325 MG TABLET (FP) PO PRN (10:27)
[2020-02-12] MEDS ORDERED: PNEUMOCOCCAL 23 VACCINE 0.5 ML VIAL IM ONE (12:00)
[2020-02-12] MEDS ORDERED: PNEUMOC 13-VAL CONJ-DIP CRM/PF 0.5 ML DISP.SYRIN IM ONE (12:00)
[2020-02-12 12:28] LABS: HEMATOCRIT 42.5 % (35.4-49); HEMOGLOBIN 14.5 GM/dL (11.7-16.9); MCH 32.7 pg (25.7-33.7); PLATELET COUNT 152 K/MM3 (134-434); RBC 4.43 M/mm3 (4.00-5.60); WHITE BLOOD COUNT 6.7 K/mm3 (4.0-10.0)
[2020-02-12 12:45] LABS: BILIRUBIN,TOTAL 0.7 mg/dL (0.2-1); BLOOD UREA NITROGEN 18.1 mg/dL (7-18); CALCIUM 8.5 mg/dL (8.5-10.1); CREATININE 0.9 mg/dL (0.55-1.3); POTASSIUM 3.9 mmol/L (3.5-5.1); TOT PROT 5.6 g/dl (6.4-8.2)
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
[2020-02-12] MEDS: METHOCARBAMOL 500 MG TABLET PO PRN ×2 (15:43→22:43)
[2020-02-12] MEDS: diazePAM 5 MG TABLET PO PRN (18:01)
[2020-02-12] MEDS: COLLOIDAL OATMEAL 1 BAR EACH TP PRN (18:01)
[2020-02-12] MEDS: cloNIDine HCL 0.1 MG TABLET PO PRN (18:03)
[2020-02-12] MEDS: QUEtiapine FUMARATE 50 MG TABLET PO SCH (22:42)
[2020-02-12] MEDS: MIRTAZAPINE 15 MG TABLET (FP) PO SCH (22:42)
[2020-02-12] MEDS: THIAMINE HCL 100 MG TABLET (FP) PO SCH (22:42)
[2020-02-12] MEDS: MELATONIN 5 MG TABLETS PO SCH (22:42)
[2020-02-13] MEDS: diazePAM 5 MG TABLET PO PRN ×5 (00:04→20:35)
[2020-02-13] MEDS: METHOCARBAMOL 500 MG TABLET PO PRN ×4 (04:02→22:47)
[2020-02-13] MEDS: diazePAM 5 MG TABLET PO SCH ×2 (06:03→17:44)
[2020-02-13] MEDS: hydrOXYzine PAMOATE 25 MG CAPSULE (FP) PO PRN ×3 (09:22→22:48)
[2020-02-13] MEDS: DIVALPROEX SODIUM 500 MG TABLET E.C. PO SCH ×2 (09:22→22:21)
[2020-02-13] MEDS: LACOSAMIDE 50 MG TABLET PO SCH ×2 (09:22→22:21)
[2020-02-13] MEDS: PRENATAL VITAMINS W/ FOLIC ACID TABLET (FP) PO SCH (09:22)
[2020-02-13] MEDS: NICOTINE 21 MG/24 HOURS TOPICAL PATCH TD SCH (09:23)
[2020-02-13] MEDS ORDERED: MASKS NR ONE (09:26)
[2020-02-13] MEDS ORDERED: METHADONE HCL 10 MG TABLET (FOR DETOX USE ONLY) PO ONE (10:00)
[2020-02-13] MEDS: cloNIDine HCL 0.1 MG TABLET PO PRN ×2 (12:25→20:35)
--- NOTE | 2020-02-13 12:59 | PN ---
S CIWA - CIWA Score Nausea/Vomitin-Mild Nausea/No Vomiting Muscle Tremors: 2 Anxiety: 3 Agitation: 1-Slight > Activity Paroxysmal Sweats: 1-Minimal Palms Moist Orientation: 0-Oriented Tacttile Disturbances: 0-None Auditory Disturbances: 0-None Visual Disturbances: 1-Very Mild Sensitivity Headache: 0-None Present CIWA-Ar Total Score: 9 BHS COWS - Scale Resting Pulse: 1= [place] 81-100 Sweatin= Chills/Flushing Restless Observation: 0= Sits Still Pupil Size: 1= Pupils >than Normal Bone or Joint Aches: 1= Mild Discomfort Runny Nose/ Eye Tearin= None GI Upset > 30mins: 2= Nausea/Diarrhea Tremor Observation of Outstretched Hands: 2= Slight Tremor Visible Yawning Observation: 0= None Anxiety or Irritability: 1=Feels Anxious/Irritable Goose Flesh Skin: 0=Smooth Skin COWS Score: 9 S Progress Note (SOAP) Subjective: 29 years old male was admitted on 02/11/20 for benzo and opiate withdrawal sx mangement treating with valium and methadone detox regiments feels tired resting in bed ate small amount of meals continue ensure supplement encourage mr baez to consider medication assisted treatment program mr baez prefers to go to [facility] for benzo and opiate abuse treatment Objective: 02/13/20 13:01 Vital Signs - 24 hr 02/12/20 02/12/20 02/13/20 16:23 20:48 06:01 Temperature 97.7 F 97.8 F 96.7 F L Pulse Rate 94 H 76 74 Respiratory 18 18 18 Rate Blood Pressure 132/81 98/57 L 107/69 O2 Sat by Pulse 96 98 Oximetry (%) 02/13/20 08:43 Temperature 97.3 F L Pulse Rate 83 Respiratory 18 Rate Blood Pressure 117/77 O2 Sat by Pulse Oximetry (%) Laboratory Tests 02/12/20 02/12/20 02/12/20 07:50 07:50 07:50 WBC 6.7 RBC 4.43 Hgb 14.5 Hct 42.5 D MCV 96.0 MCH 32.7 MCHC 34.0 RDW 13.0 Plt Count 152 D MPV 8.0 D Sodium Potassium Chloride Carbon Dioxide Anion Gap BUN Creatinine Est GFR (CKD-EPI)AfAm Est GFR (CKD-EPI)NonAf Random Glucose Calcium Total Bilirubin AST ALT Alkaline Phosphatase Total Protein Albumin Valproic Acid 106.4 H Syphilis Serology Non-reactive 02/12/20 07:50 WBC RBC Hgb Hct MCV MCH MCHC RDW Plt Count MPV Sodium 137 Potassium 3.9 Chloride 102 Carbon Dioxide 29 Anion Gap 7 L BUN 18.1 H Creatinine 0.9 Est GFR (CKD-EPI)AfAm 133.30 Est GFR (CKD-EPI)NonAf 115.01 Random Glucose 81 Calcium 8.5 Total Bilirubin 0.7 AST 29 ALT 33 Alkaline Phosphatase 74 Total Protein 5.6 L Albumin 3.0 L Valproic Acid Syphilis Serology 02/13/20 13:01 covid pending Assessment: 02/13/20 13:01 benzo and opiate withdrawal Plan: valium and methadone regiments
[2020-02-13] MEDS: IBUPROFEN 400 MG TABLET (FP) PO PRN (17:47)
[2020-02-13] MEDS: THIAMINE HCL 100 MG TABLET (FP) PO SCH (22:21)
[2020-02-13] MEDS: MIRTAZAPINE 15 MG TABLET (FP) PO SCH (22:21)
[2020-02-13] MEDS: QUEtiapine FUMARATE 50 MG TABLET PO SCH (22:21)
[2020-02-13] MEDS: MELATONIN 5 MG TABLETS PO SCH (22:23)
[2020-02-14] MEDS ORDERED: diazePAM 5 MG TABLET PO ONE (06:00)
[2020-02-14] MEDS ORDERED: METHADONE HCL 10 MG TABLET (FOR DETOX USE ONLY) ONE (09:31)
[2020-02-14] MEDS ORDERED: METHADONE HCL 5 MG TABLET (FOR DETOX USE ONLY) ONE (09:32)
[2020-02-14] MEDS: DIVALPROEX SODIUM 500 MG TABLET E.C. PO SCH ×2 (09:54→22:11)
[2020-02-14] MEDS: LACOSAMIDE 50 MG TABLET PO SCH ×2 (09:54→22:11)
[2020-02-14] MEDS: METHOCARBAMOL 500 MG TABLET PO PRN ×3 (09:54→22:10)
[2020-02-14] MEDS: PRENATAL VITAMINS W/ FOLIC ACID TABLET (FP) PO SCH (09:55)
[2020-02-14] MEDS: NICOTINE 21 MG/24 HOURS TOPICAL PATCH TD SCH (09:55)
[2020-02-14] MEDS: ACETAMINOPHEN 325 MG TABLET (FP) PO PRN (09:57)
[2020-02-14] MEDS ORDERED: METHADONE (DETOX) 10 MG, METHADONE (DETOX) 5 MG PO ONE (10:00)
[2020-02-14] MEDS: diazePAM 5 MG TABLET PO PRN ×3 (10:43→19:20)
--- NOTE | 2020-02-14 11:36 | PN ---
[facility] CIWA - CIWA Score Nausea/Vomitin-No Nausea/No Vomiting Muscle Tremors: 2 Anxiety: 2 Agitation: 0-Normal Activity Paroxysmal Sweats: No Perspiration Orientation: 0-Oriented Tacttile Disturbances: 0-None Auditory Disturbances: 0-None Visual Disturbances: 2-Mild Sensitivity Headache: 0-None Present CIWA-Ar Total Score: 6 S COWS - Scale Resting Pulse: 1= [place] 81-100 Sweatin= No chills or Flushing Restless Observation: 0= Sits Still Pupil Size: 1= Pupils >than Normal Bone or Joint Aches: 0= None Runny Nose/ Eye Tearin= None GI Upset > 30mins: 0= None Tremor Observation of Outstretched Hands: 2= Slight Tremor Visible Yawning Observation: 0= None Anxiety or Irritability: 2=Irritable/Anxious Goose Flesh Skin: 0=Smooth Skin COWS Score: 6 S Progress Note (SOAP) Subjective: 29 years old male was admitted on 02/11/20 for benzo and opiate withdrawal sx management treating with valium and methadone detox regiments feels tired consume small amount of food encourage ensure intake seen by psychiatrist resume remeron 30mg and risperadone bid Objective: 02/14/20 11:35 Vital Signs - 24 hr 02/13/20 02/13/20 02/13/20 12:22 16:29 20:41 Temperature 97.8 F 97.9 F 98.1 F Pulse Rate 86 70 67 Respiratory 18 17 18 Rate Blood Pressure 119/83 91/58 L 106/76 O2 Sat by Pulse 98 96 Oximetry (%) 02/14/20 02/14/20 02/14/20 05:36 08:35 10:45 Temperature 97.0 F L 97.3 F L 98.0 F Pulse Rate 72 67 99 H Respiratory 17 16 19 Rate Blood Pressure 101/65 100/66 115/78 O2 Sat by Pulse 98 98 97 Oximetry (%) Laboratory Tests 02/11/20 02/12/20 02/12/20 21:00 07:50 07:50 WBC RBC Hgb Hct MCV MCH MCHC RDW Plt Count MPV Sodium Potassium Chloride Carbon Dioxide Anion Gap BUN Creatinine Est GFR (CKD-EPI)AfAm Est GFR (CKD-EPI)NonAf Random Glucose Calcium Total Bilirubin AST ALT Alkaline Phosphatase Total Protein Albumin Valproic Acid 106.4 H Syphilis Serology Non-reactive COVID-19 ([facility]) Not detected 02/12/20 02/12/20 07:50 07:50 WBC 6.7 RBC 4.43 Hgb 14.5 Hct 42.5 D MCV 96.0 MCH 32.7 MCHC 34.0 RDW 13.0 Plt Count 152 D MPV 8.0 D Sodium 137 Potassium 3.9 Chloride 102 Carbon Dioxide 29 Anion Gap 7 L BUN 18.1 H Creatinine 0.9 Est GFR (CKD-EPI)AfAm 133.30 Est GFR (CKD-EPI)NonAf 115.01 Random Glucose 81 Calcium 8.5 Total Bilirubin 0.7 AST 29 ALT 33 Alkaline Phosphatase 74 Total Protein 5.6 L Albumin 3.0 L Valproic Acid Syphilis Serology COVID-19 ([facility]) lab noted Assessment: 02/14/20 11:40 benzo and opiate withdrawal schzo affective bipolar type Plan: valium and methadone regiment
[2020-02-14] MEDS: hydrOXYzine PAMOATE 25 MG CAPSULE (FP) PO PRN ×3 (12:48→22:11)
[2020-02-14] MEDS: COLLOIDAL OATMEAL 1 BAR EACH TP PRN (15:11)
[2020-02-14] MEDS: IBUPROFEN 400 MG TABLET (FP) PO PRN (17:44)
[2020-02-14] MEDS: THIAMINE HCL 100 MG TABLET (FP) PO SCH (22:11)
[2020-02-14] MEDS: MIRTAZAPINE 15 MG TABLET (FP) PO SCH (22:11)
[2020-02-14] MEDS: MELATONIN 5 MG TABLETS PO SCH (22:11)
[2020-02-14] MEDS: QUEtiapine FUMARATE 50 MG TABLET PO SCH (22:11)
[2020-02-15] MEDS ORDERED: METHADONE HCL 10 MG TABLET (FOR DETOX USE ONLY) PO ONE (10:00)
[2020-02-15] MEDS: LACOSAMIDE 50 MG TABLET PO SCH ×2 (10:12→22:06)
[2020-02-15] MEDS: PRENATAL VITAMINS W/ FOLIC ACID TABLET (FP) PO SCH (10:12)
[2020-02-15] MEDS: DIVALPROEX SODIUM 500 MG TABLET E.C. PO SCH ×2 (10:12→21:55)
[2020-02-15] MEDS: METHOCARBAMOL 500 MG TABLET PO PRN ×2 (10:13→17:27)
[2020-02-15] MEDS: NICOTINE 21 MG/24 HOURS TOPICAL PATCH TD SCH (10:14)
[2020-02-15] MEDS: hydrOXYzine PAMOATE 25 MG CAPSULE (FP) PO PRN ×2 (10:14→17:28)
--- NOTE | 2020-02-15 11:41 | PN ---
[facility] CIWA - CIWA Score Nausea/Vomitin-No Nausea/No Vomiting Muscle Tremors: 1-None Visible, but [place] Anxiety: 1-Mildly Anxious Agitation: 0-Normal Activity Paroxysmal Sweats: No Perspiration Orientation: 0-Oriented Tacttile Disturbances: 0-None Auditory Disturbances: 0-None Visual Disturbances: 0-None Headache: 1-Very Mild CIWA-Ar Total Score: 3 BHS COWS - Scale Resting Pulse: 0= [place] 80 or Below Sweatin= No chills or Flushing Restless Observation: 0= Sits Still Pupil Size: 0= Normal to Room Light Bone or Joint Aches: 0= None Runny Nose/ Eye Tearin= None GI Upset > 30mins: 1= Stomach Cramp Tremor Observation of Outstretched Hands: 1= Tremor [place], Not Seen Yawning Observation: 0= None Anxiety or Irritability: 1=Feels Anxious/Irritable Goose Flesh Skin: 0=Smooth Skin COWS Score: 3 S Progress Note (SOAP) Subjective: 29 years old male was admitted on 02/11/20 for benzo and opiate withdrawal sx management treating with valium and methadone detox regiment less tremor mild general body aches encourage mr baez to follow up with [facility] referral Objective: 02/15/20 11:42 Vital Signs - 24 hr 02/14/20 02/14/20 02/14/20 12:35 16:28 20:39 Temperature 97.6 F 97.5 F L 97.5 F L Pulse Rate 85 87 94 H Respiratory 18 18 18 Rate Blood Pressure 128/73 94/60 119/80 O2 Sat by Pulse 98 98 99 Oximetry (%) 02/15/20 02/15/20 06:31 08:32 Temperature 97.2 F L 98.2 F Pulse Rate 69 71 Respiratory 18 18 Rate Blood Pressure 114/74 105/71 O2 Sat by Pulse 96 96 Oximetry (%) Laboratory Tests 02/11/20 02/12/20 02/12/20 21:00 07:50 07:50 WBC RBC Hgb Hct MCV MCH MCHC RDW Plt Count MPV Sodium Potassium Chloride Carbon Dioxide Anion Gap BUN Creatinine Est GFR (CKD-EPI)AfAm Est GFR (CKD-EPI)NonAf Random Glucose Calcium Total Bilirubin AST ALT Alkaline Phosphatase Total Protein Albumin Valproic Acid 106.4 H Syphilis Serology Non-reactive COVID-19 ([facility]) Not detected 02/12/20 02/12/20 07:50 07:50 WBC 6.7 RBC 4.43 Hgb 14.5 Hct 42.5 D MCV 96.0 MCH 32.7 MCHC 34.0 RDW 13.0 Plt Count 152 D MPV 8.0 D Sodium 137 Potassium 3.9 Chloride 102 Carbon Dioxide 29 Anion Gap 7 L BUN 18.1 H Creatinine 0.9 Est GFR (CKD-EPI)AfAm 133.30 Est GFR (CKD-EPI)NonAf 115.01 Random Glucose 81 Calcium 8.5 Total Bilirubin 0.7 AST 29 ALT 33 Alkaline Phosphatase 74 Total Protein 5.6 L Albumin 3.0 L Valproic Acid Syphilis Serology COVID-19 ([facility]) lab noted Assessment: 02/15/20 11:42 benzo and opiate withdrawal Plan: valium and methadone regiments
[2020-02-15] MEDS: MIRTAZAPINE 15 MG TABLET (FP) PO SCH (21:55)
[2020-02-15] MEDS: THIAMINE HCL 100 MG TABLET (FP) PO SCH (21:56)
[2020-02-15] MEDS: QUEtiapine FUMARATE 50 MG TABLET PO SCH (21:56)
[2020-02-15] MEDS: MELATONIN 5 MG TABLETS PO SCH (22:04)
[2020-02-15] MEDS: IBUPROFEN 400 MG TABLET (FP) PO PRN (23:01)
[2020-02-16] MEDS: hydrOXYzine PAMOATE 25 MG CAPSULE (FP) PO PRN ×2 (01:05→10:02)
[2020-02-16] MEDS: METHOCARBAMOL 500 MG TABLET PO PRN ×2 (01:05→10:03)
[2020-02-16] MEDS: ACETAMINOPHEN 325 MG TABLET (FP) PO PRN (01:07)
[2020-02-16] MEDS ORDERED: HYDROCORTISONE 1% TOPICAL CREAM 30 GM TUBE TP PRN (02:56)
[2020-02-16] MEDS ORDERED: hydrOXYzine PAMOATE 50 MG CAPSULE (FP) PO ONE (02:58)
[2020-02-16] MEDS ORDERED: METHADONE HCL 5 MG TABLET (FOR DETOX USE ONLY) PO ONE (06:00)
[2020-02-16 09:06] VITALS: BP 109/60; PULSE 85; TEMP 97.7
[2020-02-16] MEDS: PRENATAL VITAMINS W/ FOLIC ACID TABLET (FP) PO SCH (10:02)
[2020-02-16] MEDS: DIVALPROEX SODIUM 500 MG TABLET E.C. PO SCH (10:02)
[2020-02-16] MEDS: LACOSAMIDE 50 MG TABLET PO SCH (10:02)
[2020-02-16] MEDS: NICOTINE 21 MG/24 HOURS TOPICAL PATCH TD SCH (10:02)
--- NOTE | 2020-02-16 11:21 | DS ---
[facility] Detox Discharge Summary Admission Date: 02/11/20 Discharge Date: 02/16/20 - History Present History: Opioid Dependence, Sedative Dependence Additional Comments: 29 years old male was admitted on 02/11/20 for benzo and opiate withdrawal sx management treated with valium and methadone detox regiments seen by psychiatrist mar galvez mr baez has completed the valium and methadone regiments and is tolerated well General Appearance: Yes: no Distress, mild Tremorous, not Irritable, no Sweating, less Anxious HEENTM: Yes: Within Normal Limits Respiratory: Yes: Lungs Clear, Normal Breath Sounds, No Respiratory Distress Neck: Yes: Within Normal Limits Breast: Yes: Breast Exam Deferred Cardiology: Yes: Tachycardia Abdominal: Yes: Normal Bowel Sounds, Protuberent Genitourinary: Yes: Within Normal Limits Back: Yes: Normal Inspection Musculoskeletal: Yes: Back pain, Muscle Pain Extremities: Yes: Tremors Neurological: Yes: Within Normal Limits Integumentary: Yes: Erythema Lymphatic: Yes: Within Normal Limits Pertinent Past History: time for discharge 45 minutes transferred order set from detox to rehab - Physical Exam Results Vital Signs: Vital Signs Temperature 97.7 F 02/16/20 08:35 Pulse Rate 85 02/16/20 08:35 Respiratory Rate 18 02/16/20 08:35 Blood Pressure 109/60 02/16/20 08:35 O2 Sat by Pulse Oximetry (%) 96 02/15/20 21:50 Pertinent Admission Physical Exam Findings: benzo and opiate withdrawal Vital Signs - 24 hr 02/15/20 02/15/20 02/15/20 12:34 16:52 21:50 Temperature 97.3 F L 97.9 F 98.1 F Pulse Rate 72 76 100 H Respiratory 18 18 18 Rate Blood Pressure 124/67 106/67 140/90 O2 Sat by Pulse 97 96 Oximetry (%) 02/16/20 08:35 Temperature 97.7 F Pulse Rate 85 Respiratory 18 Rate Blood Pressure 109/60 O2 Sat by Pulse Oximetry (%) Laboratory Tests 02/11/20 02/12/20 02/12/20 21:00 07:50 07:50 WBC RBC Hgb Hct MCV MCH MCHC RDW Plt Count MPV Sodium Potassium Chloride Carbon Dioxide Anion Gap BUN Creatinine Est GFR (CKD-EPI)AfAm Est GFR (CKD-EPI)NonAf Random Glucose Calcium Total Bilirubin AST ALT Alkaline Phosphatase Total Protein Albumin Valproic Acid 106.4 H Syphilis Serology Non-reactive COVID-19 ([facility]E) Not detected 02/12/20 02/12/20 07:50 07:50 WBC 6.7 RBC 4.43 Hgb 14.5 Hct 42.5 D MCV 96.0 MCH 32.7 MCHC 34.0 RDW 13.0 Plt Count 152 D MPV 8.0 D Sodium 137 Potassium 3.9 Chloride 102 Carbon Dioxide 29 Anion Gap 7 L BUN 18.1 H Creatinine 0.9 Est GFR (CKD-EPI)AfAm 133.30 Est GFR (CKD-EPI)NonAf 115.01 Random Glucose 81 Calcium 8.5 Total Bilirubin 0.7 AST 29 ALT 33 Alkaline Phosphatase 74 Total Protein 5.6 L Albumin 3.0 L Valproic Acid Syphilis Serology COVID-19 ([facility]) lab noted - Treatment Hospital Course: Detox Protocol Followed, Detoxed Safely, Responded well, Discharged Condition Good, Rehab Referral Accepted Patient has Accepted [facility] Ref[facility] - Medication Discharge Medications: Ambulatory Orders Lacosamide [Vimpat -] 50 mg PO BID 06/29/19 Divalproex [Depakote -] 500 mg PO BID #60 tablet.ec 07/02/19 Mirtazapine [Remeron -] 45 mg PO HS #90 tablet 07/28/19 Benztropine Mesylate [Cogentin -] 0.5 mg PO BID 02/11/20 Risperidone [Risperdal -] 0.5 mg PO TID 02/11/20 hydrOXYzine PAMOATE [Vistaril -] 25 mg PO TID 02/11/20 - Diagnosis (1) Opioid dependence with withdrawal Current Visit: Yes Status: Acute (2) Uncomplicated sedative, hypnotic or anxiolytic withdrawal Current Visit: Yes Status: Acute (3) Epilepsy Current Visit: Yes Status: Chronic Qualifiers: Epilepsy type: unspecified Intractability: not intractable Status epilepticus: without status epilepticus Qualified Code(s): G40.909 - Epilepsy, unspecified, not intractable, without status epilepticus (4) Nicotine dependence Current Visit: Yes Status: Acute Qualifiers: Nicotine product type: cigarettes Substance use status: in withdrawal Qualified Code(s): F17.213 - Nicotine dependence, cigarettes, with withdrawal (5) Substance induced mood disorder Current Visit: Yes Status: Suspected (6) Seizure Current Visit: Yes Status: Chronic - AMA Did Patient Leave Against Medical Advice: No CIWA Score - CIWA Score Nausea/Vomitin-No Nausea/No Vomiting Muscle Tremors: 1-None Visible, but Vevay Anxiety: 0-No Anxiety, at Ease Agitation: 0-Normal Activity Paroxysmal Sweats: No Perspiration Orientation: 0-Oriented Tacttile Disturbances: 0-None Auditory Disturbances: 0-None Visual Disturbances: 0-None Headache: 0-None Present CIWA-Ar Total Score: 1 COWS (PN) - Opiate Withdrawal Resting Pulse: 1= NE 81-100 Sweatin= No chills or Flushing Restless Observation: 0= Sits Still Pupil Size: 0= Normal to Room Light Bone or Joint Aches: 0= None Runny Nose/ Eye Tearin= None GI Upset > 30mins: 0= None Tremor Observation of Outstretched Hands: 0= None Yawning Observation: 0= None Anxiety or Irritability: 1=Feels Anxious/Irritable Goose Flesh Skin: 0=Smooth Skin COWS Score: 2
== END 2020-02-16 12:32 | disposition other institution (70) | DRG 773 ==
LOC: YASAS 17:01 → Y3N 21:21
PROVIDERS: ADMIT Allergy & Immunology; ATTEND Allergy & Immunology
PROC: HZ2ZZZZ Detoxification Services for Substance Abuse Treatment (ICD-10-PCS; principal; 2020-02-11)
DX: F11.23 Opioid dependence with withdrawal (principal); F13.230 Sedative, hypnotic or anxiolytic dependence with withdrawal, uncomplicated; F12.20 Cannabis dependence, uncomplicated; F17.210 Nicotine dependence, cigarettes, uncomplicated; F25.0 Schizoaffective disorder, bipolar type; F19.24 Other psychoactive substance dependence with psychoactive substance-induced mood disorder; F41.8 Other specified anxiety disorders; G40.909 Epilepsy, unspecified, not intractable, without status epilepticus; G47.00 Insomnia, unspecified; Z56.0 Unemployment, unspecified; Z59.0 Homelessness; Z91.19 Patient's noncompliance with other medical treatment and regimen
CPT/HCPCS: 36415; 80053; 80164; 85027; 86780; 90732; 93005; 93010; G0009; J0735; Q0162; U0003

== ENCOUNTER 2020-02-16 12:51 | Inpatient (IN) | payer OTHER ==
--- NOTE | 2020-02-16 11:24 | HP ---
[facility] Rehab Assess/Revision - Admission History Admitted to Rehab from: [facility] Date of Admission to Rehab: 02/16/20 - Findings Detox History & Physical reviewed: Yes Concur with findings: Yes Comments/Additional Findings: transferred from detox to rehab admission as per protocol Inpatient Rehab Admission - Rehab Decision to Admit Inpatient rehab admission?: Yes - Initial Determination Are CD services needed?: Yes Free of communicable disease: Yes Not in need of hospitalization: Yes - Rehab Admission Criteria Previous failed treatment: Yes Poor recovery environment: Yes Comorbidities: Yes Lacks judgement: Yes Patient is meeting Inpatient Rehab admission criteria:: Yes
[~2020-02-16 12:51] MED LIST: MAGNESIUM CITRATE 300 ML BOTTLE PO PRN; MAGNESIUM HYDROX 2400MG/30ML ORAL SUSPENSION 30 ML CUP PO PRN; NICOTINE POLACRILEX 2 MG GUM BC PRN; P-EPHED 60MG/TRIPROLIDI 2.5MG TABLET PO PRN; guaiFENesin 200 MG/10 ML 10 ML UNIT-DOSE CUPS PO PRN
[2020-02-16] MEDS: METHOCARBAMOL 500 MG TABLET PO PRN ×2 (13:12→19:46)
[2020-02-16] MEDS: hydrOXYzine PAMOATE 25 MG CAPSULE (FP) PO PRN ×2 (13:13→19:46)
[2020-02-16] MEDS: COLLOIDAL OATMEAL 1 BAR EACH TP PRN (13:14)
--- NOTE | 2020-02-16 13:25 | PN ---
[facility] Progress Note Note: Pt is a 29 y/o male admitted to rehab today from [address] [place] [address] after completing detox. Pt has PMHx of Seizure disorder since age 12- on Vimpat and Depakote. The pharmacist, Pat aaron brought to attention EKG done in detox with Abnormal ECG of Ventricular rate increase o f 34 units from last EKG in June 2019 admission. Vital Signs - 24 hr 02/16/20 12:40 Temperature 98.2 F Pulse Rate 88 Respiratory 16 Rate Blood Pressure 114/70 O2 Sat by Pulse 97 Oximetry (%) Depakote level in detox 106.7 Repeat EKG today was NSR, normal EKG Repeat Depakote level in a.m
--- NOTE | 2020-02-16 16:08 | EKG ---
Test Reason : Blood Pressure : / mmHG Vent. Rate : 081 BPM Atrial Rate : 081 BPM P-R Int : 138 ms QRS Dur : 086 ms QT Int : 348 ms P-R-T Axes : 067 -14 050 degrees QTc Int : 404 ms NORMAL SINUS RHYTHM NORMAL ECG WHEN COMPARED WITH ECG OF 11-FEB-2020 19:40, QRS AXIS SHIFTED RIGHT Confirmed by MD MORALES MOYSES ([id number]) on 02/16/2020 4:08:03 PM Referred By: Confirmed By:JUANCARLOS MORALES MD
[2020-02-16] MEDS ORDERED: MIRTAZAPINE 15 MG TABLET (FP) ONE (21:19)
[2020-02-16] MEDS: HYDROCORTISONE 1% TOPICAL CREAM 30 GM TUBE TP SCH (21:20)
[2020-02-16] MEDS: QUEtiapine FUMARATE 50 MG TABLET PO SCH (21:21)
[2020-02-16] MEDS: DIVALPROEX SODIUM 500 MG TABLET E.C. PO SCH (21:21)
[2020-02-16] MEDS: LACOSAMIDE 50 MG TABLET PO SCH (21:21)
[2020-02-16] MEDS: MELATONIN 5 MG TABLETS PO SCH (21:21)
[2020-02-16] MEDS: MIRTAZAPINE 30 MG TABLET PO SCH (21:21)
[2020-02-16] MEDS: THIAMINE HCL 100 MG TABLET (FP) PO SCH (21:21)
[2020-02-16] MEDS: IBUPROFEN 400 MG TABLET (FP) PO PRN (21:22)
[2020-02-16] MEDS ORDERED: cloNIDine HCL 0.1 MG TABLET PO ONE (23:54)
[2020-02-17] MEDS: ACETAMINOPHEN 325 MG TABLET (FP) PO PRN ×3 (00:01→21:31)
[2020-02-17] MEDS: METHOCARBAMOL 500 MG TABLET PO PRN ×3 (05:00→21:31)
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
[2020-02-17] MEDS: HYDROCORTISONE 1% TOPICAL CREAM 30 GM TUBE TP SCH ×2 (09:22→21:35)
[2020-02-17] MEDS: PRENATAL VITAMINS W/ FOLIC ACID TABLET (FP) PO SCH (09:22)
[2020-02-17] MEDS: NICOTINE 21 MG/24 HOURS TOPICAL PATCH TD SCH (09:22)
[2020-02-17] MEDS: LACOSAMIDE 50 MG TABLET PO SCH ×2 (09:23→21:33)
[2020-02-17] MEDS: DIVALPROEX SODIUM 500 MG TABLET E.C. PO SCH ×2 (09:23→21:32)
[2020-02-17] MEDS: IBUPROFEN 400 MG TABLET (FP) PO PRN (09:25)
[2020-02-17] MEDS: hydrOXYzine PAMOATE 25 MG CAPSULE (FP) PO PRN ×2 (09:25→13:32)
--- NOTE | 2020-02-17 11:15 | PN ---
[facility] Progress Note Note: Pt is a 29 y/o male admitted to rehab from [address] [place] [address] yesterday. PMHx: Seizure disorder-on Depakote and vimpat, Crohn's dz, PSx: Right Ear surgery-2010. Psych Hx;Anxiety Disorder, Depression. reports he has medical provider and neurologist that managed him in the past but has not follow up with the providers due to "everything that's happening". Pt unable to give timeline of medical management as he has been noncompliant with visits and treatments. This report was requested by: Batool Aguilar | Reference #: [id number] You have not added a ZULEMA number. Keeping your ZULEMA number(s) up to date on the My ZULEMA Numbers page will enable the separation of your prescriptions from others in the search results. Others' Prescriptions Patient Name: Emre FonsecaBirth Date: 1990 Address: [address] [place] [id number]: Male Rx Written Rx Dispensed Drug Quantity Days Supply Prescriber Name Payment Method Dispenser 01/01/2019 06/17/2019 vimpat 50 mg tablet 120 30 Mohammad, Sajjad [facility] 01/01/2019 05/15/2019 vimpat 50 mg tablet 120 30 Mohammad, Sajjad [facility] 01/01/2019 04/12/2019 vimpat 50 mg tablet 120 30 Mohammad, Sajjad [facility] 01/01/2019 03/08/2019 vimpat 50 mg tablet 120 30 [facility] * - Drugs marked with an asterisk are compound drugs. If the compound drug is made up of more than one controlled substance, then each controlled substance will be a separate row in the table. Laboratory Last Values Valproic Acid 25.8 ug/mL (50-100) L 02/17/20 08:00 Depakote level in detox 106.7 while in detox on 02/12/20 detox admission labs. Alert o x 3, nad, no resp difficulty oob ambulating with steady gait Rehab pt maintain safety cont rehab psych consult done today and meds ordered
[2020-02-17] MEDS ORDERED: TUBERCULIN PPD 5 TU/0.1ML VIAL ID ONE (13:05)
[2020-02-17] MEDS: LIDOCAINE VISCOUS 2% ORAL/TOP 20 ML UNIT-DOSE CUP MM SCH ×3 (13:07→22:18)
[2020-02-17] MEDS: cloNIDine HCL 0.1 MG TABLET PO PRN ×2 (13:29→21:31)
--- NOTE | 2020-02-17 16:50 | PN ---
[facility] Progress Note Note: Psychiatric nurse practitioner note: Delayed note: Informed by Batool BOTELLO that patient is requesting Belsomra for insomnia as he reports favorable effects from accepting medication in the past. Will order Belsomra 10mg HS PRN.
[2020-02-17] MEDS: IBUPROFEN 600 MG TABLET (FP) PO PRN (17:24)
[2020-02-17] MEDS ORDERED: MIRTAZAPINE 15 MG TABLET (FP) ONE (18:20)
[2020-02-17] MEDS: MIRTAZAPINE 30 MG TABLET PO SCH (21:31)
[2020-02-17] MEDS: QUEtiapine FUMARATE 50 MG TABLET PO SCH (21:32)
[2020-02-17] MEDS: THIAMINE HCL 100 MG TABLET (FP) PO SCH (21:32)
[2020-02-17] MEDS: MELATONIN 5 MG TABLETS PO SCH (21:32)
[2020-02-17] MEDS ORDERED: SUVOREXANT 10 MG TABLET PO PRN (22:00)
[2020-02-17] MEDS: LOPERAMIDE HCL 2 MG CAPSULE PO PRN (23:39)
[2020-02-18] MEDS: LIDOCAINE VISCOUS 2% ORAL/TOP 20 ML UNIT-DOSE CUP MM SCH ×3 (06:37→21:23)
[2020-02-18] MEDS: METHOCARBAMOL 500 MG TABLET PO PRN ×2 (08:19→16:49)
[2020-02-18] MEDS: cloNIDine HCL 0.1 MG TABLET PO PRN ×2 (08:19→21:30)
[2020-02-18] MEDS: IBUPROFEN 600 MG TABLET (FP) PO PRN ×2 (08:19→17:39)
[2020-02-18] MEDS: NICOTINE 21 MG/24 HOURS TOPICAL PATCH TD SCH (09:29)
[2020-02-18] MEDS: PRENATAL VITAMINS W/ FOLIC ACID TABLET (FP) PO SCH (09:29)
[2020-02-18] MEDS: DIVALPROEX SODIUM 500 MG TABLET E.C. PO SCH ×2 (09:29→21:22)
[2020-02-18] MEDS: LACOSAMIDE 50 MG TABLET PO SCH ×2 (09:29→21:22)
[2020-02-18] MEDS: HYDROCORTISONE 1% TOPICAL CREAM 30 GM TUBE TP SCH ×2 (09:30→21:24)
--- NOTE | 2020-02-18 10:56 | PN ---
[facility] Progress Note Note: Pt c/o "stomach cramps/diarrhea", irritability and anxiety. Pt reports he went once last night. Vital Signs - 24 hr 02/17/20 02/17/20 02/17/20 13:48 15:11 21:30 Temperature Pulse Rate 87 Respiratory Rate Blood Pressure 116/62 O2 Sat by Pulse 95 95 Oximetry (%) 02/18/20 02/18/20 06:35 08:15 Temperature 98.0 F Pulse Rate 82 81 Respiratory 18 Rate Blood Pressure 120/67 120/86 O2 Sat by Pulse 97 Oximetry (%) Diarrhea imodium prn
[2020-02-18] MEDS: ACETAMINOPHEN 325 MG TABLET (FP) PO PRN ×2 (14:03→21:26)
[2020-02-18] MEDS: hydrOXYzine PAMOATE 25 MG CAPSULE (FP) PO PRN ×2 (14:04→21:29)
[2020-02-18] MEDS ORDERED: MIRTAZAPINE 15 MG TABLET (FP) ONE (20:19)
[2020-02-18] MEDS: QUEtiapine FUMARATE 50 MG TABLET PO SCH (21:22)
[2020-02-18] MEDS: THIAMINE HCL 100 MG TABLET (FP) PO SCH (21:23)
[2020-02-18] MEDS: MIRTAZAPINE 30 MG TABLET PO SCH (21:23)
[2020-02-18] MEDS: MELATONIN 5 MG TABLETS PO SCH (21:27)
[2020-02-19] MEDS: cloNIDine HCL 0.1 MG TABLET PO PRN ×2 (06:15→21:52)
[2020-02-19] MEDS: IBUPROFEN 600 MG TABLET (FP) PO PRN ×3 (06:16→22:25)
[2020-02-19] MEDS: METHOCARBAMOL 500 MG TABLET PO PRN ×3 (06:16→21:52)
[2020-02-19] MEDS: LIDOCAINE VISCOUS 2% ORAL/TOP 20 ML UNIT-DOSE CUP MM SCH ×3 (06:16→21:50)
[2020-02-19] MEDS: hydrOXYzine PAMOATE 25 MG CAPSULE (FP) PO PRN ×4 (06:16→21:54)
[2020-02-19] MEDS: DIVALPROEX SODIUM 500 MG TABLET E.C. PO SCH ×2 (10:21→21:49)
[2020-02-19] MEDS: LACOSAMIDE 50 MG TABLET PO SCH ×2 (10:21→21:49)
[2020-02-19] MEDS: NICOTINE 21 MG/24 HOURS TOPICAL PATCH TD SCH (10:21)
[2020-02-19] MEDS: HYDROCORTISONE 1% TOPICAL CREAM 30 GM TUBE TP SCH ×2 (10:21→21:53)
[2020-02-19] MEDS: PRENATAL VITAMINS W/ FOLIC ACID TABLET (FP) PO SCH (10:21)
[2020-02-19] MEDS: ACETAMINOPHEN 325 MG TABLET (FP) PO PRN (10:22)
[2020-02-19] MEDS: THIAMINE HCL 100 MG TABLET (FP) PO SCH (21:49)
[2020-02-19] MEDS: QUEtiapine FUMARATE 50 MG TABLET PO SCH (21:49)
[2020-02-19] MEDS: MIRTAZAPINE 30 MG TABLET PO SCH (21:49)
[2020-02-19] MEDS: MELATONIN 5 MG TABLETS PO SCH (21:49)
[2020-02-19] MEDS: MAG HYDROX/AL HYDROX/SIMETH 30 ML UNIT-DOSE CUP PO PRN (21:52)
[2020-02-20] MEDS: hydrOXYzine PAMOATE 25 MG CAPSULE (FP) PO PRN ×3 (06:29→17:44)
[2020-02-20] MEDS: IBUPROFEN 600 MG TABLET (FP) PO PRN ×2 (06:29→12:46)
[2020-02-20] MEDS: METHOCARBAMOL 500 MG TABLET PO PRN ×3 (06:29→21:15)
[2020-02-20] MEDS: LIDOCAINE VISCOUS 2% ORAL/TOP 20 ML UNIT-DOSE CUP MM SCH (06:31)
[2020-02-20] MEDS: DIVALPROEX SODIUM 500 MG TABLET E.C. PO SCH ×2 (09:38→21:15)
[2020-02-20] MEDS: LACOSAMIDE 50 MG TABLET PO SCH ×2 (09:38→21:15)
[2020-02-20] MEDS: cloNIDine HCL 0.1 MG TABLET PO PRN ×2 (09:39→21:15)
[2020-02-20] MEDS: NICOTINE 21 MG/24 HOURS TOPICAL PATCH TD SCH (09:39)
[2020-02-20] MEDS: PRENATAL VITAMINS W/ FOLIC ACID TABLET (FP) PO SCH (09:39)
[2020-02-20] MEDS: HYDROCORTISONE 1% TOPICAL CREAM 30 GM TUBE TP SCH ×2 (09:40→21:14)
[2020-02-20] MEDS ORDERED: MASKS NR ONE (17:43)
[2020-02-20] MEDS: ACETAMINOPHEN 325 MG TABLET (FP) PO PRN (17:45)
[2020-02-20] MEDS: MAG HYDROX/AL HYDROX/SIMETH 30 ML UNIT-DOSE CUP PO PRN (19:05)
[2020-02-20] MEDS: MIRTAZAPINE 30 MG TABLET PO SCH (21:15)
[2020-02-20] MEDS: MELATONIN 5 MG TABLETS PO SCH (21:15)
[2020-02-20] MEDS: QUEtiapine FUMARATE 50 MG TABLET PO SCH (21:15)
[2020-02-20] MEDS: THIAMINE HCL 100 MG TABLET (FP) PO SCH (21:16)
[2020-02-21] MEDS: DIVALPROEX SODIUM 500 MG TABLET E.C. PO SCH ×2 (10:13→21:37)
[2020-02-21] MEDS: hydrOXYzine PAMOATE 25 MG CAPSULE (FP) PO PRN ×3 (10:13→21:37)
[2020-02-21] MEDS: METHOCARBAMOL 500 MG TABLET PO PRN ×2 (10:13→21:37)
[2020-02-21] MEDS: LACOSAMIDE 50 MG TABLET PO SCH ×2 (10:13→21:38)
[2020-02-21] MEDS: PRENATAL VITAMINS W/ FOLIC ACID TABLET (FP) PO SCH (10:13)
[2020-02-21] MEDS: cloNIDine HCL 0.1 MG TABLET PO PRN ×2 (10:13→21:37)
[2020-02-21] MEDS: HYDROCORTISONE 1% TOPICAL CREAM 30 GM TUBE TP SCH ×2 (10:14→21:38)
[2020-02-21] MEDS: NICOTINE 21 MG/24 HOURS TOPICAL PATCH TD SCH (10:14)
[2020-02-21] MEDS: IBUPROFEN 600 MG TABLET (FP) PO PRN ×2 (10:14→22:03)
--- NOTE | 2020-02-21 14:51 | PN ---
[facility] Progress Note Note: Pt c/o paun/bump to left armpit Vital Signs - 24 hr 02/20/20 02/20/20 02/21/20 15:17 20:24 06:13 Temperature 97.8 F Pulse Rate 63 Respiratory 20 Rate Blood Pressure 100/62 O2 Sat by Pulse 98 97 98 Oximetry (%) 02/21/20 10:34 Temperature Pulse Rate 69 Respiratory 18 Rate Blood Pressure 117/67 O2 Sat by Pulse Oximetry (%) Laboratory Tests 02/17/20 08:00 Valproic Acid 25.8 L Alert o x 3 nad oob ambulating with steady gait Skin: Left armpit with two small red bumps, movable and pain on palp. A;folliculitis r/o Boil Bacitracin ointment apply to left armpit bid warm compress to area bid to left armpit
[2020-02-21] MEDS: MAG HYDROX/AL HYDROX/SIMETH 30 ML UNIT-DOSE CUP PO PRN (16:50)
[2020-02-21] MEDS ORDERED: MIRTAZAPINE 15 MG TABLET (FP) ONE (19:32)
[2020-02-21] MEDS: SUVOREXANT 10 MG TABLET PO PRN (21:37)
[2020-02-21] MEDS: BACITRACIN 0.9 GM PACKET TP SCH (21:38)
[2020-02-21] MEDS: MELATONIN 5 MG TABLETS PO SCH (21:38)
[2020-02-21] MEDS: MIRTAZAPINE 30 MG TABLET PO SCH (21:38)
[2020-02-21] MEDS: THIAMINE HCL 100 MG TABLET (FP) PO SCH (21:38)
[2020-02-21] MEDS: QUEtiapine FUMARATE 50 MG TABLET PO SCH (21:38)
[2020-02-22] MEDS: LACOSAMIDE 50 MG TABLET PO SCH ×2 (09:26→21:37)
[2020-02-22] MEDS: METHOCARBAMOL 500 MG TABLET PO PRN ×3 (09:26→21:37)
[2020-02-22] MEDS: DIVALPROEX SODIUM 500 MG TABLET E.C. PO SCH ×2 (09:26→21:36)
[2020-02-22] MEDS: PRENATAL VITAMINS W/ FOLIC ACID TABLET (FP) PO SCH (09:26)
[2020-02-22] MEDS: NICOTINE 21 MG/24 HOURS TOPICAL PATCH TD SCH (09:27)
[2020-02-22] MEDS: IBUPROFEN 600 MG TABLET (FP) PO PRN (09:30)
[2020-02-22] MEDS: cloNIDine HCL 0.1 MG TABLET PO PRN ×2 (09:30→21:37)
[2020-02-22] MEDS: hydrOXYzine PAMOATE 25 MG CAPSULE (FP) PO PRN ×3 (09:31→21:37)
[2020-02-22] MEDS: HYDROCORTISONE 1% TOPICAL CREAM 30 GM TUBE TP SCH ×2 (09:43→21:37)
[2020-02-22] MEDS: BACITRACIN 0.9 GM PACKET TP SCH ×2 (09:43→21:36)
--- NOTE | 2020-02-22 12:54 | PN ---
Psychiatric Progress Note Vital Signs: Vital Signs Period Temp Pulse Resp BP Sys/Smith Pulse Ox Last 24 Hr 97.8 F 61 18 97/84 96-98 Date of Session: 02/22/20 Chief Complaint:: " I want to get back on gabapentin + 45 mg of remeron." HPI: Day 8 of rehabilitation treatment. Hospital course is unremarkble except for patient's medication-seeking behavior (requesting more seroquel, optimization of remeron to 45 mg/hs and augmentation with neurontin up to 800 mg/tid). Mr Fonseca endorses complaint of exacerbation of his feelings of anxiety and persistent irritability. ROS: Unremarkable. Patient is ambulatory. Steady gait. Alert and fully oriented. Current Medications: Active Medications Generic Name Dose Route Start Last Admin Trade Name Freq PRN Reason Stop Dose Admin Acetaminophen 650 mg 02/16/20 11:24 02/20/20 17:45 Tylenol - PO 650 mg Q4H PRN Administration FEVER Al Hydroxide/Mg Hydroxide 30 ml 02/16/20 11:24 02/21/20 16:50 Mylanta Oral Suspension - PO 30 ml Q6H PRN Administration DYSPEPSIA Bacitracin 0.9 gm 02/21/20 22:00 02/22/20 09:43 Bacitracin - TP Not Given BID LEVON Clonidine 0.1 mg 02/17/20 11:41 02/22/20 09:30 Catapres - PO 0.1 mg BID PRN Administration WITHDRAWAL(CONT SUBST) Colloidal Oatmeal 1 applic 02/16/20 11:29 02/16/20 13:14 Aveeno Soap - TP 1 applic DAILY PRN Administration HYGEINE Divalproex Sodium 500 mg 02/16/20 22:00 02/22/20 09:26 Depakote - PO 500 mg BID LEVON Administration Guaifenesin 10 ml 02/16/20 11:24 Robitussin - PO Q6H PRN COUGH Hydrocortisone 1 applic 02/16/20 22:00 02/22/20 09:43 Hytone 1% Cream - TP Not Given BID LEVON Hydroxyzine Pamoate 25 mg 02/16/20 13:03 02/22/20 09:31 Vistaril - PO 25 mg Q4H PRN Administration ANXIETY Ibuprofen 600 mg 02/17/20 11:43 02/22/20 09:30 Motrin - PO 600 mg Q6H PRN Administration Pain level 4-6 Lacosamide 50 mg 02/16/20 22:00 02/22/20 09:26 Vimpat - PO 50 mg BID LEVON Administration Loperamide HCl 4 mg 02/16/20 11:24 02/17/20 23:39 Imodium - PO 4 mg Q6H PRN Administration DIARRHEA Magnesium Citrate 300 ml 02/16/20 11:24 Citroma - PO Q48H PRN CONSTIPATION Magnesium Hydroxide 30 ml 02/16/20 11:24 Milk Of Magnesia - PO DAILY PRN CONSTIPATION Melatonin 5 mg 02/16/20 22:00 02/21/20 21:38 Melatonin PO 5 mg HS LEVON Administration Methocarbamol 500 mg 02/16/20 13:02 02/22/20 09:26 Robaxin - PO 500 mg TID PRN Administration MUSCLE SPASMS Mirtazapine 30 mg 02/16/20 22:00 02/21/20 21:38 Remeron - PO 30 mg HS LEVON Administration Nicotine 21 mg 02/17/20 10:00 02/22/20 09:27 Nicoderm Patch - TD 21 mg DAILY LEVON Administration Nicotine Polacrilex 2 mg 02/16/20 11:24 Nicorette Gum - BC Q2H PRN NICOTINE REPLACEMENT RX Multivit/Folic Acid/Iron 1 tab 02/17/20 10:00 02/22/20 09:26 Vitamins (Sjr) - PO 1 tab DAILY LEVON Administration Pseudoephedrine/Triprolidine 1 combo 02/16/20 11:24 Actifed - PO TID PRN NASAL CONGESTION Quetiapine Fumarate 50 mg 02/16/20 22:00 02/21/20 21:38 Seroquel - PO 50 mg HS LEVON Administration Suvorexant 10 mg 02/20/20 22:00 02/21/20 21:37 Belsomra PO 10 mg HS PRN Administration INSOMNIA Thiamine HCl 100 mg 02/16/20 22:00 02/21/20 21:38 Vitamin B1 - PO 100 mg HS LEVON Administration Medication(s) Change(s): Medications are revisited. Seroquel is raised to 50 mg po daily + 100 mg po hs. No indication for gabapentin (patient is already on TWO anticonvulsant formulations). Side effects/benefits discussed with the patient. Will keep mirtazapine at current dose of 30 mg po hs. Patient is in agreement with this plan of care. Current Side Effect: No Lab tests ordered: No Lab tests reviewed: Yes Provider note:: Chart reviewed. Met with the patient. Seen as well groomed, active on the unit (was attending groups when called for examination) and conversant. Not psychotic. Clearly medication-seeking. Mini Lab Operator contacted [facility] at [phone] for verification of medications (scripts for remeron + depakote are confirmed /last picked up on 07/28/19 + 08/07/19). Mr Marian argues that he was on 800 mg of neurontin at his most recent rehabilitation facility (written consent asked from patient for release of information from that facility). Mental status is stable. Adjustment of medications : done as seen above (refer to Medications Changes section for details). Total face to face time:: 35 Mental Status Exam - Mental Status Exam Alert and Oriented to: Time, Place, Person Cognitive Function: Good Patient Appearance: Well Groomed Mood: Nervous, Irritable Affect: Appropriate, Normal Range Patient Behavior: Appropriate, Cooperative Speech Pattern: Clear, Appropriate Voice Loudness: Normal Thought Process: Intact, Goal Oriented Thought Disorder: Not Present Hallucinations: Denies Suicidal Ideation: Denies Homicidal Ideation: Denies Insight/Judgement: Poor Sleep: Poorly, Difficulty falling asleep (as per self-report; not supported by staff's observation) Appetite: Good Gait/Station: Normal Psychiatric Treatment Plan - Problem List (1) Opioid dependence Current Visit: Yes Comment: . (2) Sedative hypnotic or anxiolytic dependence Current Visit: Yes Comment: . (3) Alcohol use disorder Current Visit: Yes (4) Cannabis dependence Current Visit: Yes Comment: . (5) Nicotine dependence Current Visit: Yes Qualifiers: Nicotine product type: cigarettes Substance use status: in withdrawal Qualified Code(s): F17.213 - Nicotine dependence, cigarettes, with withdrawal Comment: . (6) Anxiety disorder Current Visit: Yes Comment: . (7) Substance induced mood disorder Current Visit: Yes Comment: . (8) Insomnia Current Visit: Yes Qualifiers: Insomnia type: unspecified Qualified Code(s): G47.00 - Insomnia, unspecified Comment: .
[2020-02-22] MEDS: COLLOIDAL OATMEAL 1 BAR EACH TP PRN (13:52)
[2020-02-22] MEDS: MAG HYDROX/AL HYDROX/SIMETH 30 ML UNIT-DOSE CUP PO PRN (15:24)
[2020-02-22] MEDS ORDERED: MIRTAZAPINE 15 MG TABLET (FP) ONE (19:27)
[2020-02-22] MEDS: MIRTAZAPINE 30 MG TABLET PO SCH (21:36)
[2020-02-22] MEDS: SUVOREXANT 10 MG TABLET PO PRN (21:37)
[2020-02-22] MEDS: THIAMINE HCL 100 MG TABLET (FP) PO SCH (21:37)
[2020-02-22] MEDS: QUEtiapine FUMARATE 100 MG TABLET (FP) PO SCH (21:38)
[2020-02-22] MEDS: MELATONIN 5 MG TABLETS PO SCH (21:39)
[2020-02-23] MEDS: IBUPROFEN 600 MG TABLET (FP) PO PRN (08:34)
[2020-02-23] MEDS: hydrOXYzine PAMOATE 25 MG CAPSULE (FP) PO PRN ×3 (08:35→21:32)
[2020-02-23] MEDS: METHOCARBAMOL 500 MG TABLET PO PRN ×2 (08:35→16:44)
[2020-02-23] MEDS: BACITRACIN 0.9 GM PACKET TP SCH ×2 (10:42→21:31)
[2020-02-23] MEDS: LACOSAMIDE 50 MG TABLET PO SCH ×2 (10:42→21:32)
[2020-02-23] MEDS: DIVALPROEX SODIUM 500 MG TABLET E.C. PO SCH ×2 (10:42→21:32)
[2020-02-23] MEDS: cloNIDine HCL 0.1 MG TABLET PO PRN ×2 (10:42→21:31)
[2020-02-23] MEDS: NICOTINE 21 MG/24 HOURS TOPICAL PATCH TD SCH (10:43)
[2020-02-23] MEDS: PRENATAL VITAMINS W/ FOLIC ACID TABLET (FP) PO SCH (10:43)
[2020-02-23] MEDS: QUEtiapine FUMARATE 50 MG TABLET PO SCH (10:43)
[2020-02-23] MEDS: HYDROCORTISONE 1% TOPICAL CREAM 30 GM TUBE TP SCH ×2 (10:44→21:34)
[2020-02-23] MEDS: CEPHALEXIN MONOHYDRATE 500 MG CAPSULE (UD) PO SCH ×2 (12:31→18:47)
--- NOTE | 2020-02-23 13:52 | PN ---
[facility] Progress Note Note: Psychiatric nurse practitioner note: Belsomra 10mg renewed X3 days. Verbal consent given.
[2020-02-23] MEDS: ACETAMINOPHEN 325 MG TABLET (FP) PO PRN (15:18)
[2020-02-23] MEDS ORDERED: MIRTAZAPINE 15 MG TABLET (FP) ONE (19:53)
[2020-02-23] MEDS: MIRTAZAPINE 30 MG TABLET PO SCH (21:32)
[2020-02-23] MEDS: SUVOREXANT 10 MG TABLET PO PRN (21:32)
[2020-02-23] MEDS: QUEtiapine FUMARATE 100 MG TABLET (FP) PO SCH (21:32)
[2020-02-23] MEDS: THIAMINE HCL 100 MG TABLET (FP) PO SCH (21:32)
[2020-02-23] MEDS: MELATONIN 5 MG TABLETS PO SCH (21:33)
[2020-02-24] MEDS: CEPHALEXIN MONOHYDRATE 500 MG CAPSULE (UD) PO SCH ×5 (00:49→23:36)
[2020-02-24] MEDS: METHOCARBAMOL 500 MG TABLET PO PRN ×3 (06:22→21:56)
[2020-02-24] MEDS: hydrOXYzine PAMOATE 25 MG CAPSULE (FP) PO PRN ×3 (06:22→18:57)
[2020-02-24] MEDS: DIVALPROEX SODIUM 500 MG TABLET E.C. PO SCH ×2 (10:25→21:53)
[2020-02-24] MEDS: QUEtiapine FUMARATE 50 MG TABLET PO SCH (10:25)
[2020-02-24] MEDS: LACOSAMIDE 50 MG TABLET PO SCH ×2 (10:25→21:54)
[2020-02-24] MEDS: NICOTINE 21 MG/24 HOURS TOPICAL PATCH TD SCH (10:26)
[2020-02-24] MEDS: BACITRACIN 0.9 GM PACKET TP SCH ×2 (10:26→22:01)
[2020-02-24] MEDS: PRENATAL VITAMINS W/ FOLIC ACID TABLET (FP) PO SCH (10:26)
[2020-02-24] MEDS: HYDROCORTISONE 1% TOPICAL CREAM 30 GM TUBE TP SCH ×2 (10:26→21:57)
[2020-02-24] MEDS: cloNIDine HCL 0.1 MG TABLET PO PRN ×2 (10:27→21:56)
[2020-02-24] MEDS: MAG HYDROX/AL HYDROX/SIMETH 30 ML UNIT-DOSE CUP PO PRN (15:08)
[2020-02-24] MEDS ORDERED: MIRTAZAPINE 15 MG TABLET (FP) ONE (20:16)
[2020-02-24] MEDS: QUEtiapine FUMARATE 100 MG TABLET (FP) PO SCH (21:53)
[2020-02-24] MEDS: THIAMINE HCL 100 MG TABLET (FP) PO SCH (21:53)
[2020-02-24] MEDS: MIRTAZAPINE 30 MG TABLET PO SCH (21:54)
[2020-02-24] MEDS: MELATONIN 5 MG TABLETS PO SCH (21:56)
[2020-02-24] MEDS: SUVOREXANT 10 MG TABLET PO PRN (21:56)
[2020-02-25] MEDS: CEPHALEXIN MONOHYDRATE 500 MG CAPSULE (UD) PO SCH ×3 (06:57→17:38)
[2020-02-25] MEDS: BACITRACIN 0.9 GM PACKET TP SCH ×2 (10:45→21:35)
[2020-02-25] MEDS: QUEtiapine FUMARATE 50 MG TABLET PO SCH (10:45)
[2020-02-25] MEDS: HYDROCORTISONE 1% TOPICAL CREAM 30 GM TUBE TP SCH ×2 (10:45→21:36)
[2020-02-25] MEDS: PRENATAL VITAMINS W/ FOLIC ACID TABLET (FP) PO SCH (10:45)
[2020-02-25] MEDS: DIVALPROEX SODIUM 500 MG TABLET E.C. PO SCH ×2 (10:45→21:35)
[2020-02-25] MEDS: LACOSAMIDE 50 MG TABLET PO SCH ×2 (10:45→21:37)
[2020-02-25] MEDS: NICOTINE 21 MG/24 HOURS TOPICAL PATCH TD SCH (10:45)
[2020-02-25] MEDS: METHOCARBAMOL 500 MG TABLET PO PRN (10:46)
[2020-02-25] MEDS: hydrOXYzine PAMOATE 25 MG CAPSULE (FP) PO PRN ×2 (10:46→17:38)
[2020-02-25] MEDS ORDERED: MIRTAZAPINE 15 MG TABLET (FP) ONE (21:14)
[2020-02-25] MEDS: MELATONIN 5 MG TABLETS PO SCH (21:36)
[2020-02-25] MEDS: THIAMINE HCL 100 MG TABLET (FP) PO SCH (21:37)
[2020-02-25] MEDS: MIRTAZAPINE 30 MG TABLET PO SCH (21:37)
[2020-02-25] MEDS: QUEtiapine FUMARATE 100 MG TABLET (FP) PO SCH (21:37)
[2020-02-25] MEDS: SUVOREXANT 10 MG TABLET PO PRN (21:38)
[2020-02-25] MEDS: cloNIDine HCL 0.1 MG TABLET PO PRN (21:38)
[2020-02-26] MEDS: CEPHALEXIN MONOHYDRATE 500 MG CAPSULE (UD) PO SCH ×5 (00:18→23:08)
[2020-02-26] MEDS: DIVALPROEX SODIUM 500 MG TABLET E.C. PO SCH ×2 (10:16→21:33)
[2020-02-26] MEDS: QUEtiapine FUMARATE 50 MG TABLET PO SCH (10:17)
[2020-02-26] MEDS: BACITRACIN 0.9 GM PACKET TP SCH ×3 (10:17→22:50)
[2020-02-26] MEDS: LACOSAMIDE 50 MG TABLET PO SCH ×2 (10:17→21:34)
[2020-02-26] MEDS: PRENATAL VITAMINS W/ FOLIC ACID TABLET (FP) PO SCH (10:17)
[2020-02-26] MEDS: HYDROCORTISONE 1% TOPICAL CREAM 30 GM TUBE TP SCH ×2 (10:17→21:35)
[2020-02-26] MEDS: NICOTINE 21 MG/24 HOURS TOPICAL PATCH TD SCH (10:18)
[2020-02-26] MEDS: cloNIDine HCL 0.1 MG TABLET PO PRN ×2 (10:19→21:33)
[2020-02-26] MEDS: METHOCARBAMOL 500 MG TABLET PO PRN ×2 (10:19→21:34)
--- NOTE | 2020-02-26 15:37 | PN ---
[facility] Progress Note Note: Psychiatry Attending's note : Called for renewal of suvorexant. Chart reviewed. Medication verified. EYAL Locke's note (02/23/20) : read. Belsomra 10 mg po hs prn. Resumed.
[2020-02-26] MEDS: hydrOXYzine PAMOATE 25 MG CAPSULE (FP) PO PRN ×2 (17:50→21:33)
[2020-02-26] MEDS ORDERED: MIRTAZAPINE 15 MG TABLET (FP) ONE (19:59)
[2020-02-26] MEDS: LOPERAMIDE HCL 2 MG CAPSULE PO PRN (21:32)
[2020-02-26] MEDS: MIRTAZAPINE 30 MG TABLET PO SCH (21:33)
[2020-02-26] MEDS: SUVOREXANT 10 MG TABLET PO PRN (21:33)
[2020-02-26] MEDS: QUEtiapine FUMARATE 100 MG TABLET (FP) PO SCH (21:34)
[2020-02-26] MEDS: MELATONIN 5 MG TABLETS PO SCH (21:34)
[2020-02-26] MEDS: THIAMINE HCL 100 MG TABLET (FP) PO SCH (21:35)
[2020-02-27] MEDS: CEPHALEXIN MONOHYDRATE 500 MG CAPSULE (UD) PO SCH ×4 (06:49→23:10)
[2020-02-27] MEDS ORDERED: QUEtiapine FUMARATE 25 MG TABLET ONE (09:10)
[2020-02-27] MEDS: NICOTINE 21 MG/24 HOURS TOPICAL PATCH TD SCH (10:33)
[2020-02-27] MEDS: DIVALPROEX SODIUM 500 MG TABLET E.C. PO SCH ×3 (10:33→23:09)
[2020-02-27] MEDS: PRENATAL VITAMINS W/ FOLIC ACID TABLET (FP) PO SCH (10:33)
[2020-02-27] MEDS: LACOSAMIDE 50 MG TABLET PO SCH ×3 (10:34→23:10)
[2020-02-27] MEDS: QUEtiapine FUMARATE 50 MG TABLET PO SCH (10:34)
[2020-02-27] MEDS: HYDROCORTISONE 1% TOPICAL CREAM 30 GM TUBE TP SCH ×3 (10:34→23:09)
[2020-02-27] MEDS: BACITRACIN 0.9 GM PACKET TP SCH ×3 (10:34→23:09)
[2020-02-27] MEDS: cloNIDine HCL 0.1 MG TABLET PO PRN ×2 (10:36→23:10)
[2020-02-27] MEDS: METHOCARBAMOL 500 MG TABLET PO PRN (10:37)
--- NOTE | 2020-02-27 19:28 | PN ---
[facility] Progress Note Note: 29 yo recently detoxed for opioid and benzo use disorder and currently in rehab. PMHx: Epilepsy, Crohn's disease, MHHx: Anxiety, depression, insomnia Called to see patient who was described as having a tonic-clonic seizure last approx 4 minutes. Patient was assisted to floor and did not hit head. Patient seen w/ slight daze and able to respond to name, at first, and now more alert and oriented. Pupils = 5 mm Lungs CTA HR: 130 Pulse ox = 94% - started on O2 and now 98% Valproic acid level: 02/17/20= 25.8 L (02/12/20= 106.4 H) Depakote 500 mg BID last dose @ 10 am Vimpat 50 mg BID last dose @ 10 a.m Laboratory 02/27/20 19:17 POC Glucometer 107 UNITS UNITS (80-120) Vital Signs 02/27/20 02/27/20 02/27/20 19:15 19:20 19:25 Pulse Rate 126 H 128 H 131 H Blood Pressure 166/86 149/80 129/55 L O2 Sat by Pulse 97 96 Oximetry (%) Plan: O2 @ 3L/min Send to [facility] ED for evaluation w/ current med list w/ [facility]. Report given to Dr. Prajapati @ [facility] ED.
[2020-02-27] MEDS: MELATONIN 5 MG TABLETS PO SCH ×2 (22:08→23:09)
[2020-02-27] MEDS: QUEtiapine FUMARATE 100 MG TABLET (FP) PO SCH ×2 (22:09→23:10)
[2020-02-27] MEDS: THIAMINE HCL 100 MG TABLET (FP) PO SCH ×2 (22:09→23:10)
[2020-02-27] MEDS: MIRTAZAPINE 30 MG TABLET PO SCH ×2 (22:09→23:10)
--- NOTE | 2020-02-27 22:53 | PN ---
[facility] Progress Note Note: Patient came back from emergency room where he was sent to be evaluated status post a witnessed seizure. Patient was seen and assessed in [facility]. Emergency room evaluation indicates that his Labs were notable for: - CBC within normal limit - CMP within normal limit - UA within normal limit - VPA 49.4, normal limit 50, given loading dose of bolus 1000mg Depakote in ED as per neurology recommendation - ECG NSR with LAD, HR 93, QTc 425, no KATY/D or TWI - CXR no acute pathology. - Neurology consult, Dr Gómez recommenced to increase valproic acid to 750 BID, no change to Vimpat. Vital Signs Temperature 98.4 F 02/27/20 23:05 Pulse Rate 98 H 02/27/20 23:05 Respiratory Rate 18 02/27/20 23:05 Blood Pressure 126/82 02/27/20 23:05 O2 Sat by Pulse Oximetry (%) 96 02/27/20 19:20 Laboratory Last Values POC Glucometer 107 UNITS (80-120) 02/27/20 19:17 Valproic Acid 25.8 ug/mL (50-100) L 02/17/20 08:00 Action: Depakote 750mg tablet oral BID ordered as per Dr. Gómez order
[2020-02-27] MEDS ORDERED: MIRTAZAPINE 15 MG TABLET (FP) ONE (23:07)
[2020-02-27] MEDS: hydrOXYzine PAMOATE 25 MG CAPSULE (FP) PO PRN (23:10)
[2020-02-27] MEDS: SUVOREXANT 10 MG TABLET PO PRN (23:10)
[2020-02-28] MEDS: CEPHALEXIN MONOHYDRATE 500 MG CAPSULE (UD) PO SCH ×4 (07:20→23:18)
[2020-02-28] MEDS ORDERED: QUEtiapine FUMARATE 25 MG TABLET ONE (08:56)
[2020-02-28] MEDS: BACITRACIN 0.9 GM PACKET TP SCH ×2 (11:13→22:03)
[2020-02-28] MEDS: DIVALPROEX SODIUM 250 MG TABLET E.C. PO SCH ×2 (11:15→22:52)
[2020-02-28] MEDS: LACOSAMIDE 50 MG TABLET PO SCH ×2 (11:15→22:01)
[2020-02-28] MEDS: QUEtiapine FUMARATE 50 MG TABLET PO SCH (11:16)
[2020-02-28] MEDS: IBUPROFEN 600 MG TABLET (FP) PO PRN (11:16)
[2020-02-28] MEDS: PRENATAL VITAMINS W/ FOLIC ACID TABLET (FP) PO SCH (11:16)
[2020-02-28] MEDS: METHOCARBAMOL 500 MG TABLET PO PRN ×2 (11:17→22:01)
[2020-02-28] MEDS: NICOTINE 21 MG/24 HOURS TOPICAL PATCH TD SCH (11:18)
[2020-02-28] MEDS: HYDROCORTISONE 1% TOPICAL CREAM 30 GM TUBE TP SCH ×2 (11:20→22:02)
[2020-02-28] MEDS: hydrOXYzine PAMOATE 25 MG CAPSULE (FP) PO PRN ×2 (18:06→22:01)
[2020-02-28] MEDS: THIAMINE HCL 100 MG TABLET (FP) PO SCH (21:52)
[2020-02-28] MEDS: MELATONIN 5 MG TABLETS PO SCH (21:52)
[2020-02-28] MEDS ORDERED: MIRTAZAPINE 15 MG TABLET (FP) ONE (21:56)
[2020-02-28] MEDS: SUVOREXANT 10 MG TABLET PO PRN (22:00)
[2020-02-28] MEDS: QUEtiapine FUMARATE 100 MG TABLET (FP) PO SCH (22:01)
[2020-02-28] MEDS: MIRTAZAPINE 30 MG TABLET PO SCH (22:02)
[2020-02-29] MEDS: CEPHALEXIN MONOHYDRATE 500 MG CAPSULE (UD) PO SCH ×3 (07:02→17:34)
[2020-02-29] MEDS: PRENATAL VITAMINS W/ FOLIC ACID TABLET (FP) PO SCH (10:38)
[2020-02-29] MEDS: DIVALPROEX SODIUM 250 MG TABLET E.C. PO SCH ×2 (10:38→21:43)
[2020-02-29] MEDS: LACOSAMIDE 50 MG TABLET PO SCH ×2 (10:38→21:44)
[2020-02-29] MEDS: NICOTINE 21 MG/24 HOURS TOPICAL PATCH TD SCH (10:38)
[2020-02-29] MEDS: BACITRACIN 0.9 GM PACKET TP SCH ×2 (10:38→21:43)
[2020-02-29] MEDS: QUEtiapine FUMARATE 50 MG TABLET PO SCH (10:38)
[2020-02-29] MEDS: hydrOXYzine PAMOATE 25 MG CAPSULE (FP) PO PRN ×3 (10:38→21:44)
[2020-02-29] MEDS: METHOCARBAMOL 500 MG TABLET PO PRN ×2 (10:39→21:45)
[2020-02-29] MEDS: HYDROCORTISONE 1% TOPICAL CREAM 30 GM TUBE TP SCH ×2 (10:39→21:43)
[2020-02-29] MEDS ORDERED: MIRTAZAPINE 15 MG TABLET (FP) ONE (19:53)
[2020-02-29] MEDS: MELATONIN 5 MG TABLETS PO SCH (21:43)
[2020-02-29] MEDS: THIAMINE HCL 100 MG TABLET (FP) PO SCH (21:44)
[2020-02-29] MEDS: QUEtiapine FUMARATE 100 MG TABLET (FP) PO SCH (21:44)
[2020-02-29] MEDS: MIRTAZAPINE 30 MG TABLET PO SCH (21:44)
[2020-02-29] MEDS: cloNIDine HCL 0.1 MG TABLET PO PRN (21:44)
[2020-02-29] MEDS: SUVOREXANT 10 MG TABLET PO PRN (21:46)
[2020-03-01] MEDS: CEPHALEXIN MONOHYDRATE 500 MG CAPSULE (UD) PO SCH ×2 (00:36→06:18)
[2020-03-01] MEDS ORDERED: BISMUTH SUBSALICYLATE 524 MG/30 ML UD PO PRN (11:03)
[2020-03-01] MEDS ORDERED: LOPERAMIDE HCL 2 MG CAPSULE PO PRN (11:15)
--- NOTE | 2020-03-01 11:15 | PN ---
S Progress Note Note: Pt c/o diarrhea stating hx of Crohns dz and takes Pepto Bismol. Vital Signs - 24 hr 02/29/20 03/01/20 20:00 06:15 Temperature 98.0 F 97.7 F Pulse Rate 95 H 76 Respiratory 18 18 Rate Blood Pressure 126/77 110/72 O2 Sat by Pulse 95 Oximetry (%) Alert o x 3 nad oob ambulating with steady gait. Abdomen:soft, nt,nd Left Armpit lump resolved Hx Crohns Dz Unable to order Pepto due to drug interaction with Depakote(for Seizure D/o) Continue Imodium
[2020-03-01] MEDS: QUEtiapine FUMARATE 50 MG TABLET PO SCH (11:38)
[2020-03-01] MEDS: BACITRACIN 0.9 GM PACKET TP SCH ×2 (11:38→21:54)
[2020-03-01] MEDS: LACOSAMIDE 50 MG TABLET PO SCH ×2 (11:38→21:56)
[2020-03-01] MEDS: HYDROCORTISONE 1% TOPICAL CREAM 30 GM TUBE TP SCH ×2 (11:38→21:55)
[2020-03-01] MEDS: DIVALPROEX SODIUM 250 MG TABLET E.C. PO SCH ×2 (11:38→21:54)
[2020-03-01] MEDS: cloNIDine HCL 0.1 MG TABLET PO PRN ×2 (11:38→21:55)
[2020-03-01] MEDS: PRENATAL VITAMINS W/ FOLIC ACID TABLET (FP) PO SCH (11:39)
[2020-03-01] MEDS: METHOCARBAMOL 500 MG TABLET PO PRN ×2 (11:39→21:55)
[2020-03-01] MEDS: NICOTINE 21 MG/24 HOURS TOPICAL PATCH TD SCH (11:39)
[2020-03-01] MEDS: QUEtiapine FUMARATE 100 MG TABLET (FP) PO SCH (21:55)
[2020-03-01] MEDS: MELATONIN 5 MG TABLETS PO SCH (21:55)
[2020-03-01] MEDS: THIAMINE HCL 100 MG TABLET (FP) PO SCH (21:55)
[2020-03-01] MEDS: hydrOXYzine PAMOATE 25 MG CAPSULE (FP) PO PRN (21:55)
[2020-03-01] MEDS: MIRTAZAPINE 30 MG TABLET PO SCH (21:55)
[2020-03-01] MEDS: SUVOREXANT 10 MG TABLET PO PRN (21:56)
[2020-03-02] MEDS: QUEtiapine FUMARATE 50 MG TABLET PO SCH (10:47)
[2020-03-02] MEDS: LACOSAMIDE 50 MG TABLET PO SCH ×2 (10:47→21:19)
[2020-03-02] MEDS: DIVALPROEX SODIUM 250 MG TABLET E.C. PO SCH ×2 (10:47→21:19)
[2020-03-02] MEDS: METHOCARBAMOL 500 MG TABLET PO PRN ×2 (10:47→21:19)
[2020-03-02] MEDS: PRENATAL VITAMINS W/ FOLIC ACID TABLET (FP) PO SCH (10:47)
[2020-03-02] MEDS: BACITRACIN 0.9 GM PACKET TP SCH ×2 (10:48→21:20)
[2020-03-02] MEDS: NICOTINE 21 MG/24 HOURS TOPICAL PATCH TD SCH (10:48)
[2020-03-02] MEDS: HYDROCORTISONE 1% TOPICAL CREAM 30 GM TUBE TP SCH ×2 (10:48→21:20)
[2020-03-02] MEDS: hydrOXYzine PAMOATE 25 MG CAPSULE (FP) PO PRN ×2 (15:56→21:18)
[2020-03-02] MEDS: cloNIDine HCL 0.1 MG TABLET PO PRN ×2 (15:56→21:18)
[2020-03-02] MEDS ORDERED: MIRTAZAPINE 15 MG TABLET (FP) ONE (19:04)
[2020-03-02] MEDS: THIAMINE HCL 100 MG TABLET (FP) PO SCH (21:18)
[2020-03-02] MEDS: QUEtiapine FUMARATE 100 MG TABLET (FP) PO SCH (21:18)
[2020-03-02] MEDS: MIRTAZAPINE 30 MG TABLET PO SCH (21:19)
[2020-03-02] MEDS: SUVOREXANT 10 MG TABLET PO PRN (21:19)
[2020-03-02] MEDS: MELATONIN 5 MG TABLETS PO SCH (21:20)
[2020-03-03] MEDS: hydrOXYzine PAMOATE 25 MG CAPSULE (FP) PO PRN (11:00)
[2020-03-03] MEDS: PRENATAL VITAMINS W/ FOLIC ACID TABLET (FP) PO SCH (11:00)
[2020-03-03] MEDS: DIVALPROEX SODIUM 250 MG TABLET E.C. PO SCH ×2 (11:01→22:06)
[2020-03-03] MEDS: NICOTINE 21 MG/24 HOURS TOPICAL PATCH TD SCH (11:02)
[2020-03-03] MEDS: HYDROCORTISONE 1% TOPICAL CREAM 30 GM TUBE TP SCH ×2 (11:02→22:07)
[2020-03-03] MEDS: BACITRACIN 0.9 GM PACKET TP SCH ×2 (11:02→22:06)
[2020-03-03] MEDS: METHOCARBAMOL 500 MG TABLET PO PRN (11:04)
[2020-03-03] MEDS: QUEtiapine FUMARATE 50 MG TABLET PO SCH (11:04)
[2020-03-03] MEDS: LACOSAMIDE 50 MG TABLET PO SCH ×2 (11:04→22:07)
--- NOTE | 2020-03-03 18:10 | PN ---
[facility] Progress Note Note: Psychiatry Attending's note : Suvorexant due for renewal. Medication is confirmed. Chart reviewed. Belsomra 10 mg po hs prn. Re-ordered at patient's request. On consent.
[2020-03-03] MEDS ORDERED: MIRTAZAPINE 15 MG TABLET (FP) ONE (20:29)
[2020-03-03] MEDS: MELATONIN 5 MG TABLETS PO SCH (22:07)
[2020-03-03] MEDS: cloNIDine HCL 0.1 MG TABLET PO PRN (22:08)
[2020-03-03] MEDS: MIRTAZAPINE 30 MG TABLET PO SCH (22:08)
[2020-03-03] MEDS: QUEtiapine FUMARATE 100 MG TABLET (FP) PO SCH (22:08)
[2020-03-03] MEDS: THIAMINE HCL 100 MG TABLET (FP) PO SCH (22:08)
[2020-03-03] MEDS: SUVOREXANT 10 MG TABLET PO PRN (22:10)
[2020-03-04] MEDS: LACOSAMIDE 50 MG TABLET PO SCH ×2 (10:31→22:10)
[2020-03-04] MEDS: NICOTINE 21 MG/24 HOURS TOPICAL PATCH TD SCH (10:32)
[2020-03-04] MEDS: METHOCARBAMOL 500 MG TABLET PO PRN ×2 (10:32→22:10)
[2020-03-04] MEDS: HYDROCORTISONE 1% TOPICAL CREAM 30 GM TUBE TP SCH ×2 (10:32→22:10)
[2020-03-04] MEDS: hydrOXYzine PAMOATE 25 MG CAPSULE (FP) PO PRN ×2 (10:32→22:10)
[2020-03-04] MEDS: PRENATAL VITAMINS W/ FOLIC ACID TABLET (FP) PO SCH (10:32)
[2020-03-04] MEDS: BACITRACIN 0.9 GM PACKET TP SCH ×2 (10:32→22:09)
[2020-03-04] MEDS: DIVALPROEX SODIUM 250 MG TABLET E.C. PO SCH ×2 (10:32→22:09)
[2020-03-04] MEDS: QUEtiapine FUMARATE 50 MG TABLET PO SCH (10:32)
[2020-03-04] MEDS: cloNIDine HCL 0.1 MG TABLET PO PRN ×2 (14:28→22:10)
[2020-03-04] MEDS ORDERED: MIRTAZAPINE 15 MG TABLET (FP) ONE (19:51)
[2020-03-04] MEDS: QUEtiapine FUMARATE 100 MG TABLET (FP) PO SCH (22:10)
[2020-03-04] MEDS: THIAMINE HCL 100 MG TABLET (FP) PO SCH (22:10)
[2020-03-04] MEDS: MIRTAZAPINE 30 MG TABLET PO SCH (22:10)
[2020-03-04] MEDS: MELATONIN 5 MG TABLETS PO SCH (22:10)
[2020-03-04] MEDS: SUVOREXANT 10 MG TABLET PO PRN (22:13)
[2020-03-05] MEDS: QUEtiapine FUMARATE 50 MG TABLET PO SCH (10:44)
[2020-03-05] MEDS: NICOTINE 21 MG/24 HOURS TOPICAL PATCH TD SCH (10:44)
[2020-03-05] MEDS: PRENATAL VITAMINS W/ FOLIC ACID TABLET (FP) PO SCH (10:44)
[2020-03-05] MEDS: DIVALPROEX SODIUM 250 MG TABLET E.C. PO SCH ×2 (10:44→21:51)
[2020-03-05] MEDS: BACITRACIN 0.9 GM PACKET TP SCH ×2 (10:44→21:51)
[2020-03-05] MEDS: LACOSAMIDE 50 MG TABLET PO SCH ×2 (10:45→21:52)
[2020-03-05] MEDS: METHOCARBAMOL 500 MG TABLET PO PRN (10:47)
[2020-03-05] MEDS: HYDROCORTISONE 1% TOPICAL CREAM 30 GM TUBE TP SCH ×2 (10:47→21:51)
[2020-03-05] MEDS ORDERED: MIRTAZAPINE 15 MG TABLET (FP) ONE (20:15)
[2020-03-05 20:56] VITALS: TEMP 98
[2020-03-05] MEDS: COLLOIDAL OATMEAL 1 BAR EACH TP PRN (21:50)
[2020-03-05] MEDS: MELATONIN 5 MG TABLETS PO SCH (21:51)
[2020-03-05] MEDS: QUEtiapine FUMARATE 100 MG TABLET (FP) PO SCH (21:51)
[2020-03-05] MEDS: hydrOXYzine PAMOATE 25 MG CAPSULE (FP) PO PRN (21:51)
[2020-03-05] MEDS: SUVOREXANT 10 MG TABLET PO PRN (21:52)
[2020-03-05] MEDS: MIRTAZAPINE 30 MG TABLET PO SCH (21:52)
[2020-03-05] MEDS: THIAMINE HCL 100 MG TABLET (FP) PO SCH (21:52)
[2020-03-05] MEDS: cloNIDine HCL 0.1 MG TABLET PO PRN (21:54)
[2020-03-06] MEDS ORDERED: QUEtiapine FUMARATE 25 MG TABLET ONE (09:09)
[2020-03-06] MEDS: DIVALPROEX SODIUM 250 MG TABLET E.C. PO SCH ×2 (10:44→21:53)
[2020-03-06] MEDS: NICOTINE 21 MG/24 HOURS TOPICAL PATCH TD SCH (10:44)
[2020-03-06] MEDS: PRENATAL VITAMINS W/ FOLIC ACID TABLET (FP) PO SCH (10:44)
[2020-03-06] MEDS: QUEtiapine FUMARATE 50 MG TABLET PO SCH (10:45)
[2020-03-06] MEDS: BACITRACIN 0.9 GM PACKET TP SCH ×2 (10:45→21:53)
[2020-03-06] MEDS: HYDROCORTISONE 1% TOPICAL CREAM 30 GM TUBE TP SCH ×2 (10:47→21:53)
[2020-03-06] MEDS: LACOSAMIDE 50 MG TABLET PO SCH ×2 (10:47→21:53)
--- NOTE | 2020-03-06 14:09 | PN ---
[facility] Progress Note Note: Pt seen today exercising in the open cove on the unit by frontal lifting of chair. Vital Signs - 24 hr 03/05/20 03/06/20 19:49 06:54 Temperature 98.0 F Pulse Rate 83 Respiratory 18 18 Rate Blood Pressure 122/66 O2 Sat by Pulse 98 Oximetry (%) alert o x 3 nad oob ambulating with steady gait Rehab pt Reminded pt to be cautious and avoid lifting chair as exercise tool. Maintain safety increase po fluids
[2020-03-06] MEDS: IBUPROFEN 600 MG TABLET (FP) PO PRN (19:11)
[2020-03-06] MEDS ORDERED: MIRTAZAPINE 15 MG TABLET (FP) ONE (19:55)
[2020-03-06] MEDS: cloNIDine HCL 0.1 MG TABLET PO PRN (21:53)
[2020-03-06] MEDS: QUEtiapine FUMARATE 100 MG TABLET (FP) PO SCH (21:53)
[2020-03-06] MEDS: SUVOREXANT 10 MG TABLET PO PRN (21:53)
[2020-03-06] MEDS: hydrOXYzine PAMOATE 25 MG CAPSULE (FP) PO PRN (21:53)
[2020-03-06] MEDS: MELATONIN 5 MG TABLETS PO SCH (21:53)
[2020-03-06] MEDS: THIAMINE HCL 100 MG TABLET (FP) PO SCH (21:53)
[2020-03-06] MEDS: MIRTAZAPINE 30 MG TABLET PO SCH (21:53)
[2020-03-06] MEDS: METHOCARBAMOL 500 MG TABLET PO PRN (21:54)
[2020-03-07] MEDS: QUEtiapine FUMARATE 50 MG TABLET PO SCH (09:19)
[2020-03-07] MEDS: LACOSAMIDE 50 MG TABLET PO SCH (09:19)
[2020-03-07] MEDS: BACITRACIN 0.9 GM PACKET TP SCH (09:20)
[2020-03-07] MEDS: DIVALPROEX SODIUM 250 MG TABLET E.C. PO SCH (09:20)
[2020-03-07] MEDS: HYDROCORTISONE 1% TOPICAL CREAM 30 GM TUBE TP SCH (09:21)
[2020-03-07] MEDS: NICOTINE 21 MG/24 HOURS TOPICAL PATCH TD SCH (09:22)
[2020-03-07] MEDS: PRENATAL VITAMINS W/ FOLIC ACID TABLET (FP) PO SCH (09:22)
[2020-03-07] MEDS ORDERED: MASKS NR ONE (09:34)
[2020-03-07 09:35] VITALS: BP 123/81; PULSE 84
--- NOTE | 2020-03-07 09:59 | DS ---
[facility] Rehab Discharge Summary - [facility] Rehab Discharge Summary Admission Date: 02/16/20 Discharge Date: 03/07/20 - History Present History: Alcohol dependence, Cannabis dependence, Opioid dependence, Sedative dependence Pertinent Past History: Crohns Disease Seizure disorder Schizoaffective disorder - Discharge Physical Exam Vital Signs: Vital Signs Temperature 98.0 F 03/05/20 19:49 Pulse Rate 84 03/07/20 08:50 Respiratory Rate 18 03/06/20 06:54 Blood Pressure 123/81 03/07/20 08:50 O2 Sat by Pulse Oximetry (%) 95 03/07/20 06:59 General:Alert o x 3, WDWN male, nad, oob ambulating with steady gait,denies s/h/i cardiac;s1 s2, rrr lungs:ctab abdomen:soft, +bs,nt,nd MSK:Active ROM, all limbs; no edema Skin:no edema, skin intact. Pertinent Admission Physical Exam Findings: Laboratory Tests 02/17/20 02/27/20 02/29/20 08:00 19:17 08:00 POC Glucometer 107 Valproic Acid 25.8 L Levetiracetam Cancelled 02/29/20 10:10 POC Glucometer Valproic Acid 55.1 Levetiracetam - Treatment Discharge Condition: Discharge condition good, Rehabilitated safely, Responded well, Outpatient referral accepted Hospital Course: Pt is a 29 y/o male admitted to rehab for ANGY-alcohol, opiate, sedative discharging today after completing detox on 3 from 02/11/20 to 02/16/20. While in rehab pt was transfered to [facility] for evaluation and treatment of a seizure episode on 02/27/20. Pt reports he has a primary care provider Dr. Asher San( obtained today from his [place] pharmacist, Anat. Yarn Spinner called but no response) and mentioned he has been very noncompliant with following up with medical appointments and medication management. Reports he saw him about a year ago. Pt has been encouraged to follow up with primary care/Neurologist for medical management of his health problems. - Medication Discharge Medications: Ambulatory Orders Mirtazapine [Remeron -] 45 mg PO HS #90 tablet 07/28/19 Benztropine Mesylate [Cogentin -] 0.5 mg PO BID 02/11/20 Risperidone [Risperdal -] 0.5 mg PO TID 02/11/20 hydrOXYzine PAMOATE [Vistaril -] 25 mg PO TID 02/11/20 Mirtazapine [Remeron -] 30 mg PO HS 02/16/20 Quetiapine Fumarate [Seroquel -] 50 mg PO HS 02/16/20 Divalproex [Depakote -] 750 mg PO BID #60 tablet.ec 03/07/20 Lacosamide [Vimpat -] 50 mg PO BID #14 tab MDD 2 03/07/20 - Medication-Assisted Treatment (MAT) Medication-Assisted Treatment (MAT): No - Discharge Instructions Diet, activity, other medical instructions: Diet:Regular Activity: oob ad jhon Other medical instructions:follow up with [facility] aftercare as recommended with [facility]. Pt was reminded the instructions below as given to him at [facility] upon discharge post Seizure episode of 02/27/20. Additional Instructions: Today you were evaluated for seizures. You have been taking your medications without issues, but still have seizures. We have increased the dose of your Depakote to 750mg twice a day, and your Vimpat ias the same dose at 50mg twice a day. Please take them as prescribed and see a neurologist once you have been discharged from rehab, and a referral has been given. Refrain from using alcohol or drugs. If you experience worsening seizures, nausea, vomiting, weakness, or any other new or concerning symptoms, please return to the emergency room. 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
== END 2020-03-07 09:40 | disposition home or self-care (01) | DRG 772 ==
LOC: YASAS 12:51 → Y5N 12:52
PROVIDERS: ADMIT Allergy & Immunology; ATTEND Allergy & Immunology
PROC: HZ42ZZZ Group Counseling for Substance Abuse Treatment, Cognitive-Behavioral (ICD-10-PCS; principal; 2020-02-16)
DX: F11.20 Opioid dependence, uncomplicated (principal); F10.20 Alcohol dependence, uncomplicated; F13.20 Sedative, hypnotic or anxiolytic dependence, uncomplicated; F12.20 Cannabis dependence, uncomplicated; F17.210 Nicotine dependence, cigarettes, uncomplicated; F19.24 Other psychoactive substance dependence with psychoactive substance-induced mood disorder; F25.9 Schizoaffective disorder, unspecified; F41.9 Anxiety disorder, unspecified; F32.9 Major depressive disorder, single episode, unspecified; G40.909 Epilepsy, unspecified, not intractable, without status epilepticus; G47.00 Insomnia, unspecified; K50.90 Crohn's disease, unspecified, without complications; L73.8 Other specified follicular disorders; Z91.19 Patient's noncompliance with other medical treatment and regimen; Z56.0 Unemployment, unspecified
CPT/HCPCS: 36415; 80164; 82962; 93005; 93010; J0735

== ENCOUNTER 2020-02-27 20:06 | Emergency (ER) | payer OTHER ==
[2020-02-27 20:20] VITALS: BP 122/72; PULSE 106; TEMP 97.9; BMI 22.1
--- NOTE | 2020-02-27 20:23 | PDOC ---
History of Present Illness - General Chief Complaint: Seizure Stated Complaint: SEIZURE Time Seen by Provider: 02/27/20 20:20 History Source: Patient, EMS, Old Records Exam Limitations: No Limitations - History of Present Illness Initial Comments: 02/27/20 20:20 Emre Fonseca is a 29M with PMH epilepsy, psoriasis, and EtOH/benzo/opiate use disorder coming from [facility] rehab for breakthrough seizure. Per chart review and EMS report, had 4 minute tonic/clonic seizure and was assisted to floor, no head injury. Patient reports his last seizure was 3 months ago, first seizure at age 12, used to be frequent but better controlled recently. Today had seizure, unprovoked, no prior symptoms, woke up on floor, still feeling dizzy which is normal for him after seizure. Neurologist Dr. Mendoza in [place], has not seen in 6 months. Has been taking meds at rehab without issues. No new stressors but has bad home living situation. Last EtOH/opiate use two weeks ago. Per chart review: Depakote 500mg BID last dose 10:00. Vimpat 50mg BID last dose 10:00. VPA level previously high at 106 on 02/11, held that day. Past History - Medical History Allergies/Adverse Reactions: Allergies Allergy/AdvReac Type Severity Reaction Status Date / Time No Known Allergies Allergy Verified 02/16/20 13:29 Home Medications: Ambulatory Orders Lacosamide [Vimpat -] 50 mg PO BID 06/29/19 Mirtazapine [Remeron -] 45 mg PO HS #90 tablet 07/28/19 Benztropine Mesylate [Cogentin -] 0.5 mg PO BID 02/11/20 Risperidone [Risperdal -] 0.5 mg PO TID 02/11/20 hydrOXYzine PAMOATE [Vistaril -] 25 mg PO TID 02/11/20 Mirtazapine [Remeron -] 30 mg PO HS 02/16/20 Quetiapine Fumarate [Seroquel -] 50 mg PO HS 02/16/20 Divalproex [Depakote -] 750 mg PO BID #1 tablet.ec 02/27/20 Anemia: No Asthma: No Cancer: No Cardiac Disorders: No CVA: No COPD: No CHF: No Diabetes: No GI Disorders: Yes (Crohn's disease) Disorders: No HTN: No Hypercholesterolemia: No Kidney Stones: No Liver Disease: No Seizures: Yes (LAST EPISODE 7 MONTHS AGO) Thyroid Disease: No - Surgical History Abdominal Surgery: No Appendectomy: No Cardiac Surgery: No Cholecystectomy: No Lung Surgery: No Neurologic Surgery: No Orthopedic Surgery: No - Reproductive History Testicular Surgery: No - Psycho-Social/Smoking History Smoking History: Unknown if ever smoked Have you smoked in the past 12 months: Yes Number of Cigarettes Smoked Daily: 20 Cigars Per Day: 0 'Breaking Loose' booklet given: 02/11/20 - Substance Abuse Hx (Audit-C & DAST Scrn) How often the patient has a drink containing alcohol: Monthly or less Score: In Men: 4 or > Positive; In Women: 3 or > Positive: 1 Screen Result (Pos requires Nsg. Audit-10AR): Negative In the last yr the pt used illegal drug/Rx for NonMed reason: Yes Score: Yes response is considered Positive: 1 Screen Result (Positive result requires Nsg. DAST-10): Positive Review of Systems - Review of Systems Able to Perform ROS?: Yes Constitutional: No: Symptoms Reported HEENTM: No: Symptoms Reported Respiratory: No: Symptoms reported Cardiac (ROS): No: Symptoms Reported ABD/GI: No: Symptoms Reported : No: Symptoms Reported Musculoskeletal: No: Symptoms Reported Integumentary: No: Symptoms Reported Neurological: Yes: Seizure, Dizziness Endocrine: No: Symptoms Reported Hematologic/Lymphatic: No: Symptoms Reported All Other Systems: Reviewed and Negative *Physical Exam - Vital Signs Last Vital Signs Temp Pulse Resp BP Pulse Ox 97.9 F 106 H 15 122/72 99 02/27/20 20:17 02/27/20 20:17 02/27/20 20:17 02/27/20 20:17 02/27/20 20:17 - Physical Exam General Appearance: Yes: Nourished, Appropriately Dressed, Other (resting in bed in NAD). No: Apparent Distress HEENT: positive: EOMI, WOODY, Normal Voice, Symmetrical, Pharynx Normal, Hearing Grossly Normal. negative: Scleral Icterus (R), Scleral Icterus (L), Pharyngeal Erythema, Tonsillar Exudate, Tonsillar Erythema Neck: positive: Trachea midline, Normal Thyroid, Supple. negative: Tender, Rigid, Decreased range of motion, Lymphadenopathy (R), Lymphadenopathy (L), Tender lateral, Tender midline Respiratory/Chest: positive: Lungs Clear, Normal Breath Sounds. negative: Chest Tender, Respiratory Distress, Accessory Muscle Use, Labored Respiration, Rapid RR, Crackles, Rales, Rhonchi, Stridor, Wheezing Cardiovascular: positive: Regular Rhythm, Regular Rate. negative: Murmur Gastrointestinal/Abdominal: positive: Normal Bowel Sounds, Flat, Soft. negative: Tender, Organomegaly, Pulsatile Mass, Guarding, Rebound Musculoskeletal: positive: Normal Inspection. negative: CVA Tenderness, CVA Tenderness (R), CVA Tenderness (L), Decreased Range of Motion, Vertebral Tenderness Extremity: positive: Normal Capillary Refill, Normal Inspection, Normal Range of Motion, Pelvis Stable. negative: Tender, Pedal Edema, Swelling, Calf Tenderness Integumentary: positive: Normal Color, Dry, Warm. negative: Cold, Clammy, Diaphoresis Neurologic: positive: smoke jumper II-XII NML intact, Fully Oriented, Alert (mildly post- ictal daze, but fully A/O), Normal Mood/Affect, Normal Response, Motor Strength 5/5, Responsive. negative: Sensory Deficit ED Treatment Course - LABORATORY CBC & Chemistry Diagram: 02/27/20 20:27 02/27/20 20:27 Medical Decision Making - Medical Decision Making 02/27/20 20:22 Patient here for breakthrough seizure despite taking BID Vimpat and VPA, no other concerning HPI or prior symptoms, sent here for evaluation. Had another "seizure" episode in the ED lasting ~2 minutes, appears more a generalized tonic activity while prone and is responsive to verbal commands, given 2mg IV Ativan but likely a pseudoseizure given presentation. Unclear if this activity is the same of that witnessed in [facility] [employer], but unable to verify with [facility] staff despite attempt to call upon arrival. Has not seen neurologist for follow- up dosing care in months. Ordering CBC/CMP/Mag/ECG/CXR/UA and Depakote level for evaluation of seizure. Unlikely withdrawal seizures, no recent substance use. Will attempt to contact neurologist Dr. Mendoza for clarification and dose of medications given breakthrough. POC glucose 102. 02/27/20 21:[address] Gómez for consultation, recommends bolus 1000mg Depakote in ED and increase home BID dose to 750mg, no change to Vimpat. 02/27/20 21:18 Labs notable for: - CBC WNL - CMP WNL - UA WNL - VPA 49.4, normal limit 50, giving loading dose now ECG NSR with LAD, HR 93, QTc 425, no KATY/D or TWI CXR no acute pathology. 02/27/20 21:37 Discussed new medication regimen with patient who understands. No abnormalities on labs or UA, ECG normal, CXR normal. Can send back to [facility] for rehab. 02/27/20 23:44 Patient appears highly anxious and is shaking, but is able to stand and walk without issue, A/Ox3. Given all seizure medications in ED, only 1x Ativan given for seizure-like activity, low concern for true neurological deficit. Sending back to [facility] with EMS. Discharge - Discharge Information Problems reviewed: Yes Clinical Impression/Diagnosis: Seizure Condition: Stable Disposition: TRANSFER ACUTE CARE/OTHER HOSP - Additional Discharge Information Prescriptions: Divalproex [Depakote -] 750 mg PO BID #1 tablet.ec - Follow up/Referral Referrals: Mekhi Gómez MD [Staff Physician] - - Patient Discharge Instructions Patient Printed Discharge Instructions: DI for Seizure Disorder -- Adult Additional Instructions: Today you were evaluated for seizures. You have been taking your medications without issues, but still have seizures. We have increased the dose of your Depakote to 750mg twice a day, and your Vimpat ias the same dose at 50mg twice a day. Please take them as prescribed and see a neurologist once you have been discharged from rehab, and a referral has been given. Refrain from using alcohol or drugs. If you experience worsening seizures, nausea, vomiting, weakness, or any other new or concerning symptoms, please return to the emergency room. - Post Discharge Activity
[2020-02-27] MEDS ORDERED: LORazepam 2 MG/ML SDV VIAL ONE (20:49)
[2020-02-27 20:55] LABS: BASO % 0.3 % (0-2.0); EOS % 1.4 % (0-4.5); HEMATOCRIT 44.9 % (35.4-49); HEMOGLOBIN 15.3 GM/dL (11.7-16.9); LYMPH % 28.4 % (8-40); MCH 32.8 pg (25.7-33.7); MCHC 34.1 g/dl (32.0-35.9); MEAN CELL VOLUME 96.1 fl (80-96); NEUT % 59.9 % (42.8-82.8); PLATELET COUNT 215 K/MM3 (134-434); RBC 4.68 M/mm3 (4.00-5.60); RDW 13.5 % (11.9-15.9); WHITE BLOOD COUNT 6.6 K/mm3 (4.0-10.0)
[2020-02-27] MEDS ORDERED: LACOSAMIDE 50 MG TABLET PO ONE ×2 (21:12→21:24)
--- NOTE | 2020-02-27 21:12 | PDOC ---
Documentation entered by Julianna Miranda SCRIBE, acting as scribe for Lluvia Feng MD. Lluvia Feng MD: This documentation has been prepared by the Meagan matthews Sydney, SCRIBE, under my direction and personally reviewed by me in its entirety. I confirm that the documentation accurately reflects all work, treatment, procedures, and medical decision making performed by me. Attending Attestation - Resident Resident Name: BronwynsharonMaximino - ED Attending Attestation I have performed the following: I have examined & evaluated the patient, The case was reviewed & discussed with the resident, I agree w/resident's findings & plan, Exceptions are as noted - HPI HPI: 02/27/20 20:34 Patient is a 29 year old male with a significant past medical history of epilepsy who presents to the ED from [facility] s/p seizure. Patient reports being in rehab for the past two weeks for alcohol, benzo, and opiate detox. He notes having a seizure this afternoon, which lasted for about 4 minutes. Patient was carried to the ground and denied any trauma related to the episode. He reports associated dizziness and some nausea. Patient endorses taking his medication regularly throughout his stay at [facility], when he last took his medication at 10am this morning and notes his last seizure was about 3 months ago. Denies fever, chills, abdominal pain, vomiting, diarrhea, or urinary changes. Allergies: NKDA - Physicial Exam PE: 02/27/20 21:09 29 yo male BIBA after a witnessed seizure in rehab , pt is conversant head ncat no tongue trauma neck supple lungs cta b/l cvs [id number] abdomen flat skin warm and dry extremities no deformities neuro alert,conversant - Medical Decision Making 02/27/20 21:20 pt had witnessed seizure in rehab, there was no head trauma Case discussed with neurology , Dr Gómez recommenced to increase valproic acid to 750 BID and to load the pt with 1000mg valproic acid tonight 02/27/20 21:34 cbc and chemistries are unremarkable UA wnl Discharge - Discharge Information Problems reviewed: Yes Clinical Impression/Diagnosis: Seizure Condition: Stable Disposition: TRANSFER ACUTE CARE/OTHER HOSP - Additional Discharge Information Prescriptions: Divalproex [Depakote -] 750 mg PO BID #1 tablet.ec - Follow up/Referral Referrals: Mekhi Gómez MD [Staff Physician] - - Patient Discharge Instructions Patient Printed Discharge Instructions: DI for Seizure Disorder -- Adult Additional Instructions: Today you were evaluated for seizures. You have been taking your medications without issues, but still have seizures. We have increased the dose of your Depakote to 750mg twice a day, and your Vimpat ias the same dose at 50mg twice a day. Please take them as prescribed and see a neurologist once you have been discharged from rehab, and a referral has been given. Refrain from using alcohol or drugs. If you experience worsening seizures, nausea, vomiting, weakness, or any other new or concerning symptoms, please return to the emergency room. - Post Discharge Activity
[2020-02-27] MEDS ORDERED: DIVALPROEX SODIUM 500 MG TABLET E.C. PO ONE (21:13)
[2020-02-27 21:18] LABS: ALBUMIN 3.7 g/dl (3.4-5.0); BILIRUBIN,TOTAL 0.2 mg/dL (0.2-1); BLOOD UREA NITROGEN 15.8 mg/dL (7-18); CALCIUM 9.5 mg/dL (8.5-10.1); POTASSIUM 4.5 mmol/L (3.5-5.1); TOT PROT 7.2 g/dl (6.4-8.2)
[2020-02-27 21:23] LABS: URINE APPEARANCE CLEAR; URINE BILIRUBIN NEGATIVE (NEGATIVE); URINE COLOR YELLOW; URINE GLUCOSE (UA) NEGATIVE (NEGATIVE); URINE KETONE NEGATIVE (NEGATIVE); URINE LEUK ESTERASE NEGATIVE (NEGATIVE); URINE NITRITE NEGATIVE (NEGATIVE); URINE PROTEIN NEGATIVE (NEGATIVE); URINE UROBILINOGEN 0.2 mg/dL (0.2-1.0)
[2020-02-27] MEDS ORDERED: DIVALPROEX SODIUM 500 MG TABLET E.C. ONE (21:24)
[2020-02-27] MEDS ORDERED: IBUPROFEN 600 MG TABLET (FP) PO ONE ×2 (22:18→22:22)
--- NOTE | 2020-02-28 10:38 | EKG ---
Test Reason : Blood Pressure : / mmHG Vent. Rate : 093 BPM Atrial Rate : 093 BPM P-R Int : 138 ms QRS Dur : 084 ms QT Int : 342 ms P-R-T Axes : 061 -49 051 degrees QTc Int : 425 ms NORMAL SINUS RHYTHM LEFT AXIS DEVIATION ABNORMAL ECG WHEN COMPARED WITH ECG OF 16-FEB-2020 14:38, NO SIGNIFICANT CHANGE WAS FOUND Confirmed by EBENEZER BARBOZA MD ([id number]) on 02/28/2020 10:38:19 AM Referred By: Confirmed By:EBENEZER BARBOZA MD
== END 2020-02-27 22:27 | disposition short-term general hospital (02) ==
LOC: JER 20:06
PROC: 3E033NZ Introduction of Analgesics, Hypnotics, Sedatives into Peripheral Vein, Percutaneous Approach (ICD-10-PCS; principal; 2020-02-27)
DX: G40.89 Other seizures (principal)
CPT/HCPCS: 36415; 71045-TC-FY; 80053; 80164; 81003; 82962; 83735; 85025; 93005; 93010; 99285-25

== ENCOUNTER 2020-05-04 09:20 | Inpatient (IN) | payer OTHER ==
[2020-05-04 11:05] VITALS: BMI 24.5
[2020-05-04] MEDS ORDERED: ONDANSETRON *ODT* 4 MG TABLET SL PRN (11:26)
[2020-05-04] MEDS ORDERED: ACETAMINOPHEN 325 MG TABLET (FP) PO PRN ×2 (11:26)
[2020-05-04] MEDS ORDERED: MENTHOL/PHENOL 1 EACH UD MM PRN (11:26)
[2020-05-04] MEDS ORDERED: MAGNESIUM CITRATE 300 ML BOTTLE PO PRN (11:26)
[2020-05-04] MEDS ORDERED: MAG HYDROX/AL HYDROX/SIMETH 30 ML UNIT-DOSE CUP PO PRN (11:26)
[2020-05-04] MEDS ORDERED: MAGNESIUM HYDROX 2400MG/30ML ORAL SUSPENSION 30 ML CUP PO PRN (11:26)
[2020-05-04] MEDS ORDERED: BISMUTH SUBSALICYLATE 524 MG/30 ML UD PO PRN (11:26)
[2020-05-04] MEDS ORDERED: METHADONE HCL 10 MG TABLET (FOR DETOX USE ONLY) PO ONE (12:00)
[2020-05-04] MEDS: LACOSAMIDE 50 MG TABLET PO SCH ×2 (13:08→22:13)
[2020-05-04] MEDS: DIVALPROEX SODIUM 250 MG TABLET E.C. PO SCH ×2 (13:09→22:12)
[2020-05-04] MEDS: METHOCARBAMOL 500 MG TABLET PO PRN ×2 (13:12→22:14)
[2020-05-04] MEDS ORDERED: hydrOXYzine PAMOATE 25 MG CAPSULE (FP) PO SCH (14:00)
[2020-05-04 14:57] LABS: HEMATOCRIT 44.5 % (35.4-49); HEMOGLOBIN 14.8 GM/dL (11.7-16.9); MCH 31.9 pg (25.7-33.7); MCHC 33.2 g/dl (32.0-35.9); MEAN CELL VOLUME 95.9 fl (80-96); MEAN PLT VOLUME 8.5 fl (7.5-11.1); PLATELET COUNT 248 K/MM3 (134-434); RBC 4.64 M/mm3 (4.00-5.60); RDW 13.1 % (11.9-15.9); WHITE BLOOD COUNT 5.1 K/mm3 (4.0-10.0)
[2020-05-04 15:20] LABS: POTASSIUM 3.9 mmol/L (3.5-5.1)
[2020-05-04 15:23] LABS: ALBUMIN 3.8 g/dl (3.4-5.0); CALCIUM 9.1 mg/dL (8.5-10.1)
[2020-05-04 15:24] LABS: BLOOD UREA NITROGEN 8.7 mg/dL (7-18)
[2020-05-04 15:27] LABS: BILIRUBIN,TOTAL 0.4 mg/dL (0.2-1); CREATININE 1.1 mg/dL (0.55-1.3); TOT PROT 6.7 g/dl (6.4-8.2)
[2020-05-04 16:14] LABS: HIV INTERPRETATION NEGATIVE (NEGATIVE)
[2020-05-04] MEDS: cloNIDine HCL 0.1 MG TABLET PO PRN (18:57)
[2020-05-04] MEDS: hydrOXYzine PAMOATE 25 MG CAPSULE (FP) PO PRN (18:57)
[2020-05-04] MEDS ORDERED: SUVOREXANT 10 MG TABLET PO ONE (22:00)
[2020-05-04] MEDS: MELATONIN 5 MG TABLETS PO SCH (22:12)
[2020-05-04] MEDS: THIAMINE HCL 100 MG TABLET (FP) PO SCH (22:13)
[2020-05-05] MEDS: hydrOXYzine PAMOATE 25 MG CAPSULE (FP) PO PRN ×2 (06:02→23:07)
[2020-05-05] MEDS ORDERED: METHADONE (DETOX) 20 MG, METHADONE (DETOX) 5 MG PO ONE (10:00)
[2020-05-05] MEDS: NICOTINE 21 MG/24 HOURS TOPICAL PATCH TD SCH ×2 (10:48→10:50)
[2020-05-05] MEDS: PRENATAL VITAMINS W/ FOLIC ACID TABLET (FP) PO SCH (10:48)
[2020-05-05] MEDS ORDERED: METHADONE HCL 5 MG TABLET (FOR DETOX USE ONLY) ONE (10:48)
[2020-05-05] MEDS: METHOCARBAMOL 500 MG TABLET PO PRN ×3 (10:49→23:05)
[2020-05-05] MEDS ORDERED: METHADONE HCL 10 MG TABLET (FOR DETOX USE ONLY) ONE (10:49)
[2020-05-05] MEDS: DIVALPROEX SODIUM 250 MG TABLET E.C. PO SCH ×2 (10:50→22:02)
[2020-05-05] MEDS: LACOSAMIDE 50 MG TABLET PO SCH ×2 (10:50→22:02)
[2020-05-05] MEDS: cloNIDine HCL 0.1 MG TABLET PO PRN ×2 (15:01→22:04)
[2020-05-05] MEDS: IBUPROFEN 400 MG TABLET (FP) PO PRN (20:26)
[2020-05-05] MEDS: THIAMINE HCL 100 MG TABLET (FP) PO SCH (22:02)
[2020-05-05] MEDS: MIRTAZAPINE 30 MG TABLET PO SCH (22:02)
[2020-05-05] MEDS: SUVOREXANT 10 MG TABLET PO PRN (22:04)
[2020-05-05] MEDS: MELATONIN 5 MG TABLETS PO SCH (22:05)
[2020-05-06] MEDS ORDERED: METHADONE HCL 10 MG TABLET (FOR DETOX USE ONLY) PO ONE (10:00)
[2020-05-06] MEDS: DIVALPROEX SODIUM 250 MG TABLET E.C. PO SCH ×2 (11:54→22:17)
[2020-05-06] MEDS: METHOCARBAMOL 500 MG TABLET PO PRN ×3 (11:54→23:31)
[2020-05-06] MEDS: NICOTINE 21 MG/24 HOURS TOPICAL PATCH TD SCH (11:55)
[2020-05-06] MEDS: LACOSAMIDE 50 MG TABLET PO SCH ×2 (11:55→22:17)
[2020-05-06] MEDS: PRENATAL VITAMINS W/ FOLIC ACID TABLET (FP) PO SCH (11:55)
[2020-05-06] MEDS ORDERED: MASKS NR ONE (12:51)
[2020-05-06] MEDS: cloNIDine HCL 0.1 MG TABLET PO PRN (15:45)
[2020-05-06] MEDS: IBUPROFEN 400 MG TABLET (FP) PO PRN (17:47)
[2020-05-06] MEDS: hydrOXYzine PAMOATE 25 MG CAPSULE (FP) PO PRN (17:47)
[2020-05-06] MEDS: diazePAM 5 MG TABLET PO PRN (20:49)
[2020-05-06] MEDS: SUVOREXANT 10 MG TABLET PO PRN (22:16)
[2020-05-06] MEDS: THIAMINE HCL 100 MG TABLET (FP) PO SCH (22:17)
[2020-05-06] MEDS: MIRTAZAPINE 30 MG TABLET PO SCH (22:17)
[2020-05-06] MEDS: MELATONIN 5 MG TABLETS PO SCH (22:17)
[2020-05-07] MEDS ORDERED: METHADONE HCL 5 MG TABLET (FOR DETOX USE ONLY) ONE (09:10)
[2020-05-07] MEDS ORDERED: METHADONE HCL 10 MG TABLET (FOR DETOX USE ONLY) ONE (09:10)
[2020-05-07] MEDS ORDERED: METHADONE (DETOX) 10 MG, METHADONE (DETOX) 5 MG PO ONE (10:00)
[2020-05-07] MEDS: diazePAM 5 MG TABLET PO PRN ×3 (12:17→20:43)
[2020-05-07] MEDS: DIVALPROEX SODIUM 250 MG TABLET E.C. PO SCH ×2 (12:17→22:57)
[2020-05-07] MEDS: METHOCARBAMOL 500 MG TABLET PO PRN ×2 (12:17→22:10)
[2020-05-07] MEDS: LACOSAMIDE 50 MG TABLET PO SCH ×2 (12:17→22:07)
[2020-05-07] MEDS: PRENATAL VITAMINS W/ FOLIC ACID TABLET (FP) PO SCH (12:17)
[2020-05-07] MEDS: NICOTINE 21 MG/24 HOURS TOPICAL PATCH TD SCH (12:19)
[2020-05-07] MEDS: hydrOXYzine PAMOATE 25 MG CAPSULE (FP) PO PRN (19:30)
[2020-05-07] MEDS: THIAMINE HCL 100 MG TABLET (FP) PO SCH (22:07)
[2020-05-07] MEDS: MIRTAZAPINE 30 MG TABLET PO SCH (22:07)
[2020-05-07] MEDS: SUVOREXANT 10 MG TABLET PO PRN (22:07)
[2020-05-07] MEDS: MELATONIN 5 MG TABLETS PO SCH (22:07)
[2020-05-08] MEDS: diazePAM 5 MG TABLET PO PRN ×4 (06:57→22:15)
[2020-05-08] MEDS ORDERED: METHADONE HCL 10 MG TABLET (FOR DETOX USE ONLY) PO ONE (10:00)
[2020-05-08] MEDS: LACOSAMIDE 50 MG TABLET PO SCH ×2 (12:46→22:15)
[2020-05-08] MEDS: METHOCARBAMOL 500 MG TABLET PO PRN ×2 (12:47→22:15)
[2020-05-08] MEDS: NICOTINE 21 MG/24 HOURS TOPICAL PATCH TD SCH (12:50)
[2020-05-08] MEDS: PRENATAL VITAMINS W/ FOLIC ACID TABLET (FP) PO SCH (12:51)
[2020-05-08] MEDS: DIVALPROEX SODIUM 250 MG TABLET E.C. PO SCH ×2 (12:53→22:15)
[2020-05-08] MEDS: THIAMINE HCL 100 MG TABLET (FP) PO SCH (22:15)
[2020-05-08] MEDS: MIRTAZAPINE 30 MG TABLET PO SCH (22:15)
[2020-05-08] MEDS: SUVOREXANT 10 MG TABLET PO PRN (22:16)
[2020-05-08] MEDS: MELATONIN 5 MG TABLETS PO SCH (23:30)
[2020-05-09] MEDS ORDERED: METHADONE HCL 5 MG TABLET (FOR DETOX USE ONLY) PO ONE (06:00)
[2020-05-09] MEDS: diazePAM 5 MG TABLET PO PRN (08:40)
[2020-05-09] MEDS: METHOCARBAMOL 500 MG TABLET PO PRN (08:40)
[2020-05-09 09:37] VITALS: BP 114/74; PULSE 80; TEMP 97.7
== END 2020-05-09 10:11 | disposition home or self-care (01) | DRG 773 ==
LOC: YASAS 09:20 → Y6N 12:46
PROVIDERS: ADMIT Allergy & Immunology; ATTEND Allergy & Immunology
PROC: HZ2ZZZZ Detoxification Services for Substance Abuse Treatment (ICD-10-PCS; principal; 2020-05-04)
DX: F10.230 Alcohol dependence with withdrawal, uncomplicated (principal); F11.23 Opioid dependence with withdrawal; F13.230 Sedative, hypnotic or anxiolytic dependence with withdrawal, uncomplicated; F12.20 Cannabis dependence, uncomplicated; F17.210 Nicotine dependence, cigarettes, uncomplicated; F19.282 Other psychoactive substance dependence with psychoactive substance-induced sleep disorder; F19.280 Other psychoactive substance dependence with psychoactive substance-induced anxiety disorder; F25.0 Schizoaffective disorder, bipolar type; F32.9 Major depressive disorder, single episode, unspecified; F41.9 Anxiety disorder, unspecified; G47.00 Insomnia, unspecified; G40.909 Epilepsy, unspecified, not intractable, without status epilepticus; K50.90 Crohn's disease, unspecified, without complications; Z91.14 Patient's other noncompliance with medication regimen; Z59.0 Homelessness; Z56.0 Unemployment, unspecified
CPT/HCPCS: 36415; 80053; 80164; 85027; 86780; 87389; 93005; 93010; C9803; G0480; J0735; U0003

== ENCOUNTER 2020-10-19 18:40 | Inpatient (IN) | payer OTHER ==
[2020-10-19 20:07] VITALS: BMI 21.2
[2020-10-19] MEDS ORDERED: ONDANSETRON *ODT* 4 MG TABLET SL PRN (21:23)
[2020-10-19] MEDS ORDERED: DICYCLOMINE HCL 10 MG CAPSULE PO PRN (21:23)
[2020-10-19] MEDS ORDERED: MAGNESIUM CITRATE 300 ML BOTTLE PO PRN (21:23)
[2020-10-19] MEDS ORDERED: ACETAMINOPHEN 325 MG TABLET (FP) PO PRN ×2 (21:23)
[2020-10-19] MEDS ORDERED: guaiFENesin 200 MG/10 ML 10 ML UNIT-DOSE CUPS PO PRN (21:23)
[2020-10-19] MEDS ORDERED: P-EPHED 60MG/TRIPROLIDI 2.5MG TABLET PO PRN (21:23)
[2020-10-19] MEDS ORDERED: MAG HYDROX/AL HYDROX/SIMETH 30 ML UNIT-DOSE CUP PO PRN (21:23)
[2020-10-19] MEDS ORDERED: MENTHOL/PHENOL 1 EACH UD MM PRN (21:23)
[2020-10-19] MEDS ORDERED: IBUPROFEN 400 MG TABLET (FP) PO PRN (21:23)
[2020-10-19] MEDS ORDERED: NICOTINE POLACRILEX 2 MG GUM BUC PRN (21:23)
[2020-10-19] MEDS ORDERED: BISMUTH SUBSALICYLATE 524 MG/30 ML UD PO PRN (21:23)
[2020-10-19] MEDS ORDERED: MAGNESIUM HYDROX 2400MG/30ML ORAL SUSPENSION 30 ML CUP PO PRN (21:23)
[2020-10-19] MEDS ORDERED: NALOXONE HCL 0.4 MG/ML VIAL IM PRN (21:23)
[2020-10-19] MEDS ORDERED: NALOXONE (NARCAN) HCL 4 MG/0.1 ML SPRAY NS PRN (21:23)
[2020-10-19] MEDS ORDERED: METHOCARBAMOL 500 MG TABLET ONE (22:19)
[2020-10-19] MEDS ORDERED: diazePAM 5 MG TABLET ONE (22:19)
[2020-10-19] MEDS: METHOCARBAMOL 500 MG TABLET PO PRN (22:22)
[2020-10-19] MEDS: MELATONIN 5 MG TABLETS PO SCH (22:22)
[2020-10-19] MEDS: diazePAM 5 MG TABLET PO PRN (22:22)
[2020-10-19] MEDS: THIAMINE HCL 100 MG TABLET (FP) PO SCH (22:23)
[2020-10-20] MEDS: diazePAM 5 MG TABLET PO SCH ×5 (00:58→22:13)
[2020-10-20] MEDS ORDERED: diazePAM 5 MG TABLET ONE (04:47)
[2020-10-20] MEDS ORDERED: METHADONE HCL 10 MG TABLET PO SCH (06:45)
[2020-10-20] MEDS ORDERED: METHADONE HCL 10 MG TABLET (FOR DETOX USE ONLY) ONE (06:57)
[2020-10-20] MEDS: METHADONE 120 MG, METHADONE 20 MG PO SCH (06:59)
[2020-10-20 10:30] LABS: HEMATOCRIT 39.5 % (35.4-49); HEMOGLOBIN 13.6 GM/dL (11.7-16.9); MCH 32.2 pg (25.7-33.7); MCHC 34.4 g/dl (32.0-35.9); MEAN CELL VOLUME 93.7 fl (80-96); MEAN PLT VOLUME 9.4 fl (7.5-11.1); PLATELET COUNT 136 K/MM3 (134-434); RBC 4.22 M/mm3 (4.00-5.60); RDW 13.6 % (11.9-15.9); WHITE BLOOD COUNT 4.2 K/mm3 (4.0-10.0)
[2020-10-20 10:31] LABS: ALBUMIN 3.2 g/dl (3.4-5.0); BLOOD UREA NITROGEN 9.5 mg/dL (7-18); CALCIUM 8.8 mg/dL (8.5-10.1)
[2020-10-20 10:33] LABS: BILIRUBIN,TOTAL 0.3 mg/dL (0.2-1)
[2020-10-20] MEDS: NICOTINE 21 MG/24 HOURS TOPICAL PATCH TD SCH (10:33)
[2020-10-20] MEDS: PRENATAL VITAMINS W/ FOLIC ACID TABLET (FP) PO SCH (10:33)
[2020-10-20] MEDS: METHOCARBAMOL 500 MG TABLET PO PRN ×2 (10:33→22:14)
[2020-10-20 10:34] LABS: CREATININE 0.7 mg/dL (0.55-1.3)
[2020-10-20] MEDS: DIVALPROEX SODIUM 500 MG TABLET E.C. PO SCH ×2 (12:37→22:14)
[2020-10-20] MEDS: levETIRAcetam 500 MG TABLET (FP) PO SCH ×2 (12:37→22:14)
[2020-10-20] MEDS: hydrOXYzine PAMOATE 25 MG CAPSULE (FP) PO PRN ×2 (17:44→22:16)
[2020-10-20] MEDS: MIRTAZAPINE 15 MG TABLET (FP) PO SCH (22:14)
[2020-10-20] MEDS: MELATONIN 5 MG TABLETS PO SCH (22:14)
[2020-10-20] MEDS: THIAMINE HCL 100 MG TABLET (FP) PO SCH (22:14)
[2020-10-21] MEDS ORDERED: METHADONE HCL 10 MG TABLET ONE (04:34)
[2020-10-21] MEDS ORDERED: METHADONE HCL 40 MG DISPERSABLE TABLET ONE (04:34)
[2020-10-21] MEDS: METHADONE 120 MG, METHADONE 20 MG PO SCH (06:27)
[2020-10-21] MEDS: diazePAM 5 MG TABLET PO SCH ×3 (06:27→22:49)
[2020-10-21] MEDS: METHOCARBAMOL 500 MG TABLET PO PRN ×2 (06:28→22:50)
[2020-10-21] MEDS: NICOTINE 21 MG/24 HOURS TOPICAL PATCH TD SCH (10:35)
[2020-10-21] MEDS: hydrOXYzine PAMOATE 25 MG CAPSULE (FP) PO PRN ×3 (10:36→22:49)
[2020-10-21] MEDS: levETIRAcetam 500 MG TABLET (FP) PO SCH ×2 (10:36→22:49)
[2020-10-21] MEDS: diazePAM 5 MG TABLET PO PRN (10:36)
[2020-10-21] MEDS: DIVALPROEX SODIUM 500 MG TABLET E.C. PO SCH ×2 (10:37→22:49)
[2020-10-21] MEDS: PRENATAL VITAMINS W/ FOLIC ACID TABLET (FP) PO SCH (10:37)
[2020-10-21] MEDS: MIRTAZAPINE 15 MG TABLET (FP) PO SCH (22:49)
[2020-10-21] MEDS: THIAMINE HCL 100 MG TABLET (FP) PO SCH (22:50)
[2020-10-21] MEDS: MELATONIN 5 MG TABLETS PO SCH (22:51)
[2020-10-22] MEDS ORDERED: METHADONE HCL 10 MG TABLET ONE (04:52)
[2020-10-22] MEDS ORDERED: METHADONE HCL 40 MG DISPERSABLE TABLET ONE (04:53)
[2020-10-22] MEDS: diazePAM 5 MG TABLET PO SCH ×2 (06:14→17:44)
[2020-10-22] MEDS: METHADONE 120 MG, METHADONE 20 MG PO SCH (06:15)
[2020-10-22] MEDS: METHOCARBAMOL 500 MG TABLET PO PRN ×2 (06:18→22:24)
[2020-10-22] MEDS: levETIRAcetam 500 MG TABLET (FP) PO SCH ×2 (11:15→22:24)
[2020-10-22] MEDS: NICOTINE 21 MG/24 HOURS TOPICAL PATCH TD SCH (11:16)
[2020-10-22] MEDS: PRENATAL VITAMINS W/ FOLIC ACID TABLET (FP) PO SCH (11:16)
[2020-10-22] MEDS: DIVALPROEX SODIUM 500 MG TABLET E.C. PO SCH ×2 (11:16→22:24)
[2020-10-22] MEDS: hydrOXYzine PAMOATE 25 MG CAPSULE (FP) PO PRN ×2 (11:16→22:24)
[2020-10-22 14:11] LABS: SARS-CoV-2 NAA Not Detected (Not Detected)
[2020-10-22] MEDS: THIAMINE HCL 100 MG TABLET (FP) PO SCH (22:23)
[2020-10-22] MEDS: MIRTAZAPINE 15 MG TABLET (FP) PO SCH (22:24)
[2020-10-22] MEDS: MELATONIN 5 MG TABLETS PO SCH (22:24)
[2020-10-23] MEDS ORDERED: METHADONE HCL 40 MG DISPERSABLE TABLET ONE (04:09)
[2020-10-23] MEDS ORDERED: METHADONE HCL 10 MG TABLET ONE (04:09)
[2020-10-23] MEDS: METHADONE 120 MG, METHADONE 20 MG PO SCH (05:25)
[2020-10-23] MEDS ORDERED: diazePAM 5 MG TABLET PO ONE (06:00)
[2020-10-23 09:42] VITALS: BP 102/72; PULSE 85; TEMP 97.3
[2020-10-23] MEDS: levETIRAcetam 500 MG TABLET (FP) PO SCH (10:39)
[2020-10-23] MEDS: PRENATAL VITAMINS W/ FOLIC ACID TABLET (FP) PO SCH (10:39)
[2020-10-23] MEDS: DIVALPROEX SODIUM 500 MG TABLET E.C. PO SCH (10:39)
[2020-10-23] MEDS: hydrOXYzine PAMOATE 25 MG CAPSULE (FP) PO PRN (10:42)
[2020-10-23] MEDS: NICOTINE 21 MG/24 HOURS TOPICAL PATCH TD SCH (10:43)
== END 2020-10-23 13:15 | disposition other institution (70) | DRG 773 ==
LOC: YASAS 18:40 → Y3N 10-20 08:52
PROVIDERS: ADMIT Allergy & Immunology; ATTEND Allergy & Immunology
PROC: HZ2ZZZZ Detoxification Services for Substance Abuse Treatment (ICD-10-PCS; principal; 2020-10-20)
DX: F10.230 Alcohol dependence with withdrawal, uncomplicated (principal); F13.230 Sedative, hypnotic or anxiolytic dependence with withdrawal, uncomplicated; F11.20 Opioid dependence, uncomplicated; F12.20 Cannabis dependence, uncomplicated; F17.210 Nicotine dependence, cigarettes, uncomplicated; F19.280 Other psychoactive substance dependence with psychoactive substance-induced anxiety disorder; F19.282 Other psychoactive substance dependence with psychoactive substance-induced sleep disorder; F19.24 Other psychoactive substance dependence with psychoactive substance-induced mood disorder; F25.0 Schizoaffective disorder, bipolar type; F41.8 Other specified anxiety disorders; F32.9 Major depressive disorder, single episode, unspecified; G40.909 Epilepsy, unspecified, not intractable, without status epilepticus; G47.00 Insomnia, unspecified; K50.90 Crohn's disease, unspecified, without complications; L40.9 Psoriasis, unspecified
CPT/HCPCS: 36415; 80053; 85027; 86780; C9803; U0003; U0005

== ENCOUNTER 2020-10-23 13:04 | Inpatient (IN) | payer OTHER ==
[2020-10-23] MEDS ORDERED: MENTHOL/PHENOL 1 EACH UD MM PRN (15:40)
[2020-10-23] MEDS ORDERED: MAGNESIUM CITRATE 300 ML BOTTLE PO PRN (15:40)
[2020-10-23] MEDS ORDERED: ACETAMINOPHEN 325 MG TABLET (FP) PO PRN (15:40)
[2020-10-23] MEDS ORDERED: guaiFENesin 200 MG/10 ML 10 ML UNIT-DOSE CUPS PO PRN (15:40)
[2020-10-23] MEDS ORDERED: MAGNESIUM HYDROX 2400MG/30ML ORAL SUSPENSION 30 ML CUP PO PRN (15:40)
[2020-10-23] MEDS ORDERED: LOPERAMIDE HCL 2 MG CAPSULE PO PRN (15:40)
[2020-10-23] MEDS ORDERED: P-EPHED 60MG/TRIPROLIDI 2.5MG TABLET PO PRN (15:40)
[2020-10-23] MEDS ORDERED: IBUPROFEN 400 MG TABLET (FP) PO PRN (15:40)
[2020-10-23] MEDS ORDERED: NICOTINE POLACRILEX 2 MG GUM BUC PRN (15:40)
[2020-10-23] MEDS: levETIRAcetam 500 MG TABLET (FP) PO SCH (17:03)
[2020-10-23] MEDS: DIVALPROEX SODIUM 500 MG TABLET E.C. PO SCH (17:03)
[2020-10-23] MEDS: THIAMINE HCL 100 MG TABLET (FP) PO SCH (21:23)
[2020-10-23] MEDS: MELATONIN 5 MG TABLETS PO SCH (21:23)
[2020-10-23] MEDS: hydrOXYzine PAMOATE 25 MG CAPSULE (FP) PO PRN (21:24)
[2020-10-23] MEDS ORDERED: MIRTAZAPINE 15 MG TABLET (FP) PO ONE (22:00)
[2020-10-24] MEDS ORDERED: METHADONE HCL 10 MG TABLET ONE (05:57)
[2020-10-24] MEDS ORDERED: METHADONE HCL 40 MG DISPERSABLE TABLET ONE (05:57)
[2020-10-24] MEDS ORDERED: METHADONE HCL 10 MG TABLET PO SCH (06:00)
[2020-10-24] MEDS: METHADONE 120 MG, METHADONE 20 MG PO SCH (06:02)
[2020-10-24] MEDS: levETIRAcetam 500 MG TABLET (FP) PO SCH ×2 (06:03→17:15)
[2020-10-24] MEDS: hydrOXYzine PAMOATE 25 MG CAPSULE (FP) PO PRN ×4 (06:03→21:17)
[2020-10-24] MEDS: DIVALPROEX SODIUM 500 MG TABLET E.C. PO SCH ×2 (06:03→17:16)
[2020-10-24] MEDS: NICOTINE 21 MG/24 HOURS TOPICAL PATCH TD SCH (10:10)
[2020-10-24] MEDS: PRENATAL VITAMINS W/ FOLIC ACID TABLET (FP) PO SCH (10:10)
[2020-10-24] MEDS ORDERED: HYDROCORTISONE 1% TOPICAL OINT 30 GM TUBE TP PRN (10:54)
[2020-10-24] MEDS: GABAPENTIN 300 MG CAPSULE PO SCH ×2 (13:03→21:17)
[2020-10-24] MEDS: DOCUSATE SODIUM 100 MG CAPSULE (FP) PO SCH ×2 (13:03→21:17)
[2020-10-24] MEDS: METHOCARBAMOL 500 MG TABLET PO SCH ×3 (13:03→21:17)
[2020-10-24] MEDS ORDERED: PT OWN MED DRAWER 7, Y5N ONE (16:08)
[2020-10-24 21:11] LABS: PH,URINE 5.5 (5.0-8.0); URINE APPEARANCE CLEAR; URINE BILIRUBIN NEGATIVE (NEGATIVE); URINE COLOR YELLOW; URINE GLUCOSE (UA) NEGATIVE (NEGATIVE); URINE KETONE TRACE (NEGATIVE); URINE LEUK ESTERASE NEGATIVE (NEGATIVE); URINE NITRITE NEGATIVE (NEGATIVE); URINE PROTEIN NEGATIVE (NEGATIVE); URINE UROBILINOGEN 0.2 mg/dL (0.2-1.0)
[2020-10-24] MEDS: MELATONIN 5 MG TABLETS PO SCH (21:17)
[2020-10-24] MEDS: THIAMINE HCL 100 MG TABLET (FP) PO SCH (21:17)
[2020-10-24] MEDS: MIRTAZAPINE 30 MG TABLET PO SCH (21:18)
[2020-10-25] MEDS ORDERED: METHADONE HCL 40 MG DISPERSABLE TABLET ONE (03:20)
[2020-10-25] MEDS ORDERED: METHADONE HCL 10 MG TABLET ONE (03:20)
[2020-10-25] MEDS: METHADONE 120 MG, METHADONE 20 MG PO SCH (06:14)
[2020-10-25] MEDS: hydrOXYzine PAMOATE 25 MG CAPSULE (FP) PO PRN ×3 (06:15→21:10)
[2020-10-25] MEDS: levETIRAcetam 500 MG TABLET (FP) PO SCH ×2 (06:15→17:23)
[2020-10-25] MEDS: GABAPENTIN 300 MG CAPSULE PO SCH ×3 (06:15→21:10)
[2020-10-25] MEDS: DIVALPROEX SODIUM 500 MG TABLET E.C. PO SCH ×2 (06:15→17:23)
[2020-10-25] MEDS: DOCUSATE SODIUM 100 MG CAPSULE (FP) PO SCH ×3 (06:28→21:10)
[2020-10-25] MEDS: PRENATAL VITAMINS W/ FOLIC ACID TABLET (FP) PO SCH (10:13)
[2020-10-25] MEDS: NICOTINE 21 MG/24 HOURS TOPICAL PATCH TD SCH (10:13)
[2020-10-25] MEDS: METHOCARBAMOL 500 MG TABLET PO SCH ×4 (10:13→21:10)
[2020-10-25] MEDS: CHOLECALCIFEROL (VIT D3) 1,000 UNIT (25 MCG) TABLET PO SCH (13:09)
[2020-10-25] MEDS: SULFAMETHOXAZOLE/TRIMETHOPRIM 800MG/160MG D.S. TABLET PO SCH ×2 (13:10→21:10)
[2020-10-25] MEDS: LIDOCAINE 5% TOPICAL PATCH TP SCH (13:10)
[2020-10-25] MEDS: TRIAMCINOLONE ACET 0.1% OINT 15 GM TUBE TP SCH ×2 (14:27→21:11)
[2020-10-25] MEDS: THIAMINE HCL 100 MG TABLET (FP) PO SCH (21:10)
[2020-10-25] MEDS: MELATONIN 5 MG TABLETS PO SCH (21:10)
[2020-10-25] MEDS: MIRTAZAPINE 30 MG TABLET PO SCH (21:10)
[2020-10-25] MEDS: LIDOCAINE PATCH REMOVAL MC SCH (21:11)
[2020-10-26] MEDS ORDERED: METHADONE HCL 10 MG TABLET ONE (03:27)
[2020-10-26] MEDS ORDERED: METHADONE HCL 40 MG DISPERSABLE TABLET ONE (03:27)
[2020-10-26] MEDS: DIVALPROEX SODIUM 500 MG TABLET E.C. PO SCH ×2 (06:20→17:42)
[2020-10-26] MEDS: levETIRAcetam 500 MG TABLET (FP) PO SCH ×2 (06:20→17:42)
[2020-10-26] MEDS: GABAPENTIN 300 MG CAPSULE PO SCH ×3 (06:20→21:35)
[2020-10-26] MEDS: hydrOXYzine PAMOATE 25 MG CAPSULE (FP) PO PRN ×3 (06:20→15:56)
[2020-10-26] MEDS: METHADONE 120 MG, METHADONE 20 MG PO SCH (06:21)
[2020-10-26] MEDS: DOCUSATE SODIUM 100 MG CAPSULE (FP) PO SCH ×2 (06:21→14:49)
[2020-10-26] MEDS: TRIAMCINOLONE ACET 0.1% OINT 15 GM TUBE TP SCH ×3 (06:22→21:37)
[2020-10-26] MEDS: NICOTINE 21 MG/24 HOURS TOPICAL PATCH TD SCH (10:57)
[2020-10-26] MEDS: SULFAMETHOXAZOLE/TRIMETHOPRIM 800MG/160MG D.S. TABLET PO SCH ×2 (10:57→21:36)
[2020-10-26] MEDS: CHOLECALCIFEROL (VIT D3) 1,000 UNIT (25 MCG) TABLET PO SCH (10:57)
[2020-10-26] MEDS: METHOCARBAMOL 500 MG TABLET PO SCH ×4 (10:57→21:36)
[2020-10-26] MEDS: PRENATAL VITAMINS W/ FOLIC ACID TABLET (FP) PO SCH (10:58)
[2020-10-26] MEDS: LIDOCAINE 5% TOPICAL PATCH TP SCH (10:58)
[2020-10-26] MEDS: PANTOPRAZOLE 40 MG TABLET PO SCH (15:57)
[2020-10-26] MEDS ORDERED: PT OWN MED DRAWER 7, Y5N ONE (17:17)
[2020-10-26] MEDS: CYPROHEPTADINE HCL 4 MG TABLET PO SCH (17:46)
[2020-10-26] MEDS: MELATONIN 5 MG TABLETS PO SCH (21:34)
[2020-10-26] MEDS: THIAMINE HCL 100 MG TABLET (FP) PO SCH (21:34)
[2020-10-26] MEDS: MIRTAZAPINE 15 MG TABLET (FP) PO SCH (21:35)
[2020-10-26] MEDS: LIDOCAINE PATCH REMOVAL MC SCH (21:36)
[2020-10-26] MEDS: MAG HYDROX/AL HYDROX/SIMETH 30 ML UNIT-DOSE CUP PO PRN (21:39)
[2020-10-27] MEDS ORDERED: METHADONE HCL 10 MG TABLET ONE (03:44)
[2020-10-27] MEDS ORDERED: METHADONE HCL 40 MG DISPERSABLE TABLET ONE (03:44)
[2020-10-27] MEDS ORDERED: PT OWN MED DRAWER 7, Y5N ONE (03:45)
[2020-10-27 06:06] LABS: SARS-CoV-2 NAA Not Detected (Not Detected)
[2020-10-27] MEDS: TRIAMCINOLONE ACET 0.1% OINT 15 GM TUBE TP SCH ×3 (06:13→21:20)
[2020-10-27] MEDS: GABAPENTIN 300 MG CAPSULE PO SCH ×3 (06:14→21:18)
[2020-10-27] MEDS: levETIRAcetam 500 MG TABLET (FP) PO SCH ×2 (06:14→18:56)
[2020-10-27] MEDS: DIVALPROEX SODIUM 500 MG TABLET E.C. PO SCH ×2 (06:15→18:57)
[2020-10-27] MEDS: METHADONE 120 MG, METHADONE 20 MG PO SCH (06:15)
[2020-10-27] MEDS: CYPROHEPTADINE HCL 4 MG TABLET PO SCH ×3 (08:07→16:25)
[2020-10-27] MEDS: METHOCARBAMOL 500 MG TABLET PO SCH ×4 (10:05→21:19)
[2020-10-27] MEDS: NICOTINE 21 MG/24 HOURS TOPICAL PATCH TD SCH (10:05)
[2020-10-27] MEDS: PANTOPRAZOLE 40 MG TABLET PO SCH (10:05)
[2020-10-27] MEDS: PRENATAL VITAMINS W/ FOLIC ACID TABLET (FP) PO SCH (10:05)
[2020-10-27] MEDS: LIDOCAINE 5% TOPICAL PATCH TP SCH (10:05)
[2020-10-27] MEDS: SULFAMETHOXAZOLE/TRIMETHOPRIM 800MG/160MG D.S. TABLET PO SCH ×2 (10:05→21:18)
[2020-10-27] MEDS: CHOLECALCIFEROL (VIT D3) 1,000 UNIT (25 MCG) TABLET PO SCH (10:05)
[2020-10-27] MEDS: hydrOXYzine PAMOATE 25 MG CAPSULE (FP) PO PRN (13:30)
[2020-10-27] MEDS: MELATONIN 5 MG TABLETS PO SCH (21:18)
[2020-10-27] MEDS: THIAMINE HCL 100 MG TABLET (FP) PO SCH (21:18)
[2020-10-27] MEDS: MIRTAZAPINE 15 MG TABLET (FP) PO SCH (21:19)
[2020-10-27] MEDS: LIDOCAINE PATCH REMOVAL MC SCH (21:20)
[2020-10-28] MEDS ORDERED: METHADONE HCL 40 MG DISPERSABLE TABLET ONE (03:11)
[2020-10-28] MEDS ORDERED: METHADONE HCL 10 MG TABLET ONE (03:11)
[2020-10-28] MEDS: METHADONE 120 MG, METHADONE 20 MG PO SCH (06:31)
[2020-10-28] MEDS: DIVALPROEX SODIUM 500 MG TABLET E.C. PO SCH ×2 (06:32→17:22)
[2020-10-28] MEDS: levETIRAcetam 500 MG TABLET (FP) PO SCH ×2 (06:32→17:22)
[2020-10-28] MEDS: CYPROHEPTADINE HCL 4 MG TABLET PO SCH ×3 (06:32→17:22)
[2020-10-28] MEDS: GABAPENTIN 300 MG CAPSULE PO SCH ×3 (06:32→21:24)
[2020-10-28] MEDS: MAG HYDROX/AL HYDROX/SIMETH 30 ML UNIT-DOSE CUP PO PRN (06:32)
[2020-10-28] MEDS: TRIAMCINOLONE ACET 0.1% OINT 15 GM TUBE TP SCH ×3 (06:32→21:25)
[2020-10-28] MEDS: hydrOXYzine PAMOATE 25 MG CAPSULE (FP) PO PRN (06:32)
[2020-10-28] MEDS: PRENATAL VITAMINS W/ FOLIC ACID TABLET (FP) PO SCH (09:35)
[2020-10-28] MEDS: CHOLECALCIFEROL (VIT D3) 1,000 UNIT (25 MCG) TABLET PO SCH (09:35)
[2020-10-28] MEDS: PANTOPRAZOLE 40 MG TABLET PO SCH (09:35)
[2020-10-28] MEDS: NICOTINE 21 MG/24 HOURS TOPICAL PATCH TD SCH (09:35)
[2020-10-28] MEDS: METHOCARBAMOL 500 MG TABLET PO SCH ×4 (09:35→21:24)
[2020-10-28] MEDS: LIDOCAINE 5% TOPICAL PATCH TP SCH (09:35)
[2020-10-28] MEDS: SULFAMETHOXAZOLE/TRIMETHOPRIM 800MG/160MG D.S. TABLET PO SCH ×2 (09:35→21:24)
[2020-10-28] MEDS: MIRTAZAPINE 15 MG TABLET (FP) PO SCH (21:24)
[2020-10-28] MEDS: THIAMINE HCL 100 MG TABLET (FP) PO SCH (21:24)
[2020-10-28] MEDS: MELATONIN 5 MG TABLETS PO SCH (21:24)
[2020-10-28] MEDS: LIDOCAINE PATCH REMOVAL MC SCH (21:25)
[2020-10-29] MEDS ORDERED: METHADONE HCL 40 MG DISPERSABLE TABLET ONE (03:10)
[2020-10-29] MEDS ORDERED: METHADONE HCL 10 MG TABLET ONE (03:10)
[2020-10-29] MEDS: levETIRAcetam 500 MG TABLET (FP) PO SCH ×2 (06:32→17:22)
[2020-10-29] MEDS: DIVALPROEX SODIUM 500 MG TABLET E.C. PO SCH ×2 (06:32→17:22)
[2020-10-29] MEDS: METHADONE 120 MG, METHADONE 20 MG PO SCH (06:32)
[2020-10-29] MEDS: CYPROHEPTADINE HCL 4 MG TABLET PO SCH ×3 (06:33→17:22)
[2020-10-29] MEDS: GABAPENTIN 300 MG CAPSULE PO SCH ×3 (06:33→21:15)
[2020-10-29] MEDS: TRIAMCINOLONE ACET 0.1% OINT 15 GM TUBE TP SCH ×3 (06:33→21:15)
[2020-10-29] MEDS: hydrOXYzine PAMOATE 25 MG CAPSULE (FP) PO PRN ×3 (06:33→21:14)
[2020-10-29] MEDS: PANTOPRAZOLE 40 MG TABLET PO SCH (09:45)
[2020-10-29] MEDS: PRENATAL VITAMINS W/ FOLIC ACID TABLET (FP) PO SCH (09:45)
[2020-10-29] MEDS: CHOLECALCIFEROL (VIT D3) 1,000 UNIT (25 MCG) TABLET PO SCH (09:45)
[2020-10-29] MEDS: METHOCARBAMOL 500 MG TABLET PO SCH ×4 (09:45→21:15)
[2020-10-29] MEDS: NICOTINE 21 MG/24 HOURS TOPICAL PATCH TD SCH (09:45)
[2020-10-29] MEDS: LIDOCAINE 5% TOPICAL PATCH TP SCH (09:46)
[2020-10-29] MEDS: SULFAMETHOXAZOLE/TRIMETHOPRIM 800MG/160MG D.S. TABLET PO SCH ×2 (09:46→21:14)
[2020-10-29] MEDS: MAG HYDROX/AL HYDROX/SIMETH 30 ML UNIT-DOSE CUP PO PRN (11:24)
[2020-10-29] MEDS: MIRTAZAPINE 15 MG TABLET (FP) PO SCH (21:14)
[2020-10-29] MEDS: THIAMINE HCL 100 MG TABLET (FP) PO SCH (21:14)
[2020-10-29] MEDS: MELATONIN 5 MG TABLETS PO SCH (21:14)
[2020-10-29] MEDS: LIDOCAINE PATCH REMOVAL MC SCH (21:15)
[2020-10-30] MEDS ORDERED: METHADONE HCL 10 MG TABLET ONE (03:10)
[2020-10-30] MEDS ORDERED: METHADONE HCL 40 MG DISPERSABLE TABLET ONE (03:10)
[2020-10-30] MEDS: METHADONE 120 MG, METHADONE 20 MG PO SCH (06:28)
[2020-10-30] MEDS: DIVALPROEX SODIUM 500 MG TABLET E.C. PO SCH ×2 (06:29→17:19)
[2020-10-30] MEDS: levETIRAcetam 500 MG TABLET (FP) PO SCH ×2 (06:29→17:18)
[2020-10-30] MEDS: GABAPENTIN 300 MG CAPSULE PO SCH ×3 (06:29→21:51)
[2020-10-30] MEDS: CYPROHEPTADINE HCL 4 MG TABLET PO SCH ×3 (06:29→17:18)
[2020-10-30] MEDS: hydrOXYzine PAMOATE 25 MG CAPSULE (FP) PO PRN ×3 (06:29→15:16)
[2020-10-30] MEDS: TRIAMCINOLONE ACET 0.1% OINT 15 GM TUBE TP SCH ×3 (06:38→21:52)
[2020-10-30] MEDS: LIDOCAINE 5% TOPICAL PATCH TP SCH (09:55)
[2020-10-30] MEDS: PANTOPRAZOLE 40 MG TABLET PO SCH (09:55)
[2020-10-30] MEDS: SULFAMETHOXAZOLE/TRIMETHOPRIM 800MG/160MG D.S. TABLET PO SCH ×2 (09:55→21:50)
[2020-10-30] MEDS: PRENATAL VITAMINS W/ FOLIC ACID TABLET (FP) PO SCH (09:55)
[2020-10-30] MEDS: NICOTINE 21 MG/24 HOURS TOPICAL PATCH TD SCH (09:55)
[2020-10-30] MEDS: CHOLECALCIFEROL (VIT D3) 1,000 UNIT (25 MCG) TABLET PO SCH (09:56)
[2020-10-30] MEDS: METHOCARBAMOL 500 MG TABLET PO SCH ×4 (12:17→21:51)
[2020-10-30] MEDS: MIRTAZAPINE 15 MG TABLET (FP) PO SCH (21:51)
[2020-10-30] MEDS: MELATONIN 5 MG TABLETS PO SCH (21:51)
[2020-10-30] MEDS: THIAMINE HCL 100 MG TABLET (FP) PO SCH (21:52)
[2020-10-30] MEDS: LIDOCAINE PATCH REMOVAL MC SCH (21:52)
[2020-10-31] MEDS ORDERED: METHADONE HCL 40 MG DISPERSABLE TABLET ONE (06:21)
[2020-10-31] MEDS ORDERED: METHADONE HCL 10 MG TABLET ONE (06:21)
[2020-10-31] MEDS: levETIRAcetam 500 MG TABLET (FP) PO SCH ×2 (06:41→17:11)
[2020-10-31] MEDS: TRIAMCINOLONE ACET 0.1% OINT 15 GM TUBE TP SCH ×3 (06:41→21:21)
[2020-10-31] MEDS: GABAPENTIN 300 MG CAPSULE PO SCH ×3 (06:41→21:19)
[2020-10-31] MEDS: DIVALPROEX SODIUM 500 MG TABLET E.C. PO SCH ×2 (06:41→17:11)
[2020-10-31] MEDS: METHADONE 120 MG, METHADONE 20 MG PO SCH (06:42)
[2020-10-31] MEDS: CYPROHEPTADINE HCL 4 MG TABLET PO SCH ×3 (06:45→17:11)
[2020-10-31] MEDS: LIDOCAINE 5% TOPICAL PATCH TP SCH (10:10)
[2020-10-31] MEDS: PRENATAL VITAMINS W/ FOLIC ACID TABLET (FP) PO SCH (10:10)
[2020-10-31] MEDS: CHOLECALCIFEROL (VIT D3) 1,000 UNIT (25 MCG) TABLET PO SCH (10:10)
[2020-10-31] MEDS: NICOTINE 21 MG/24 HOURS TOPICAL PATCH TD SCH (10:10)
[2020-10-31] MEDS: METHOCARBAMOL 500 MG TABLET PO SCH ×4 (10:10→21:19)
[2020-10-31] MEDS: PANTOPRAZOLE 40 MG TABLET PO SCH (10:11)
[2020-10-31] MEDS: SULFAMETHOXAZOLE/TRIMETHOPRIM 800MG/160MG D.S. TABLET PO SCH ×2 (10:11→21:20)
[2020-10-31] MEDS ORDERED: MASKS NR ONE (10:13)
[2020-10-31] MEDS: hydrOXYzine PAMOATE 25 MG CAPSULE (FP) PO PRN ×2 (14:48→21:20)
[2020-10-31] MEDS: MAG HYDROX/AL HYDROX/SIMETH 30 ML UNIT-DOSE CUP PO PRN (14:48)
[2020-10-31] MEDS: THIAMINE HCL 100 MG TABLET (FP) PO SCH (21:19)
[2020-10-31] MEDS: MIRTAZAPINE 15 MG TABLET (FP) PO SCH (21:19)
[2020-10-31] MEDS: MELATONIN 5 MG TABLETS PO SCH (21:19)
[2020-10-31] MEDS: LIDOCAINE PATCH REMOVAL MC SCH (21:21)
[2020-11-01] MEDS ORDERED: METHADONE HCL 10 MG TABLET ONE (03:20)
[2020-11-01] MEDS ORDERED: METHADONE HCL 40 MG DISPERSABLE TABLET ONE (03:20)
[2020-11-01] MEDS: GABAPENTIN 300 MG CAPSULE PO SCH ×3 (06:13→21:32)
[2020-11-01] MEDS: METHADONE 120 MG, METHADONE 20 MG PO SCH (06:13)
[2020-11-01] MEDS: levETIRAcetam 500 MG TABLET (FP) PO SCH ×2 (06:13→17:21)
[2020-11-01] MEDS: hydrOXYzine PAMOATE 25 MG CAPSULE (FP) PO PRN ×3 (06:13→13:05)
[2020-11-01] MEDS: CYPROHEPTADINE HCL 4 MG TABLET PO SCH ×3 (06:13→17:21)
[2020-11-01] MEDS: DIVALPROEX SODIUM 500 MG TABLET E.C. PO SCH ×2 (06:13→17:21)
[2020-11-01] MEDS: TRIAMCINOLONE ACET 0.1% OINT 15 GM TUBE TP SCH ×3 (06:14→21:33)
[2020-11-01] MEDS: CHOLECALCIFEROL (VIT D3) 1,000 UNIT (25 MCG) TABLET PO SCH (10:07)
[2020-11-01] MEDS: NICOTINE 21 MG/24 HOURS TOPICAL PATCH TD SCH (10:07)
[2020-11-01] MEDS: SULFAMETHOXAZOLE/TRIMETHOPRIM 800MG/160MG D.S. TABLET PO SCH ×2 (10:07→21:32)
[2020-11-01] MEDS: METHOCARBAMOL 500 MG TABLET PO SCH ×4 (10:08→21:32)
[2020-11-01] MEDS: LIDOCAINE 5% TOPICAL PATCH TP SCH (10:08)
[2020-11-01] MEDS: PRENATAL VITAMINS W/ FOLIC ACID TABLET (FP) PO SCH (10:08)
[2020-11-01] MEDS: PANTOPRAZOLE 40 MG TABLET PO SCH (10:08)
[2020-11-01] MEDS: MIRTAZAPINE 15 MG TABLET (FP) PO SCH (21:32)
[2020-11-01] MEDS: MELATONIN 5 MG TABLETS PO SCH (21:32)
[2020-11-01] MEDS: THIAMINE HCL 100 MG TABLET (FP) PO SCH (21:32)
[2020-11-01] MEDS: LIDOCAINE PATCH REMOVAL MC SCH (21:33)
[2020-11-02] MEDS ORDERED: METHADONE HCL 40 MG DISPERSABLE TABLET ONE (03:14)
[2020-11-02] MEDS ORDERED: METHADONE HCL 10 MG TABLET ONE (03:15)
[2020-11-02] MEDS: METHADONE 120 MG, METHADONE 20 MG PO SCH (06:08)
[2020-11-02] MEDS: levETIRAcetam 500 MG TABLET (FP) PO SCH ×2 (06:08→17:39)
[2020-11-02] MEDS: GABAPENTIN 300 MG CAPSULE PO SCH ×3 (06:08→21:18)
[2020-11-02] MEDS: hydrOXYzine PAMOATE 25 MG CAPSULE (FP) PO PRN ×3 (06:08→13:07)
[2020-11-02] MEDS: DIVALPROEX SODIUM 500 MG TABLET E.C. PO SCH ×2 (06:08→17:39)
[2020-11-02] MEDS: TRIAMCINOLONE ACET 0.1% OINT 15 GM TUBE TP SCH ×3 (06:08→21:19)
[2020-11-02] MEDS: CYPROHEPTADINE HCL 4 MG TABLET PO SCH ×3 (06:09→17:40)
[2020-11-02] MEDS: COLLOIDAL OATMEAL 1 BAR EACH TP PRN (06:34)
[2020-11-02] MEDS: PRENATAL VITAMINS W/ FOLIC ACID TABLET (FP) PO SCH (09:58)
[2020-11-02] MEDS: CHOLECALCIFEROL (VIT D3) 1,000 UNIT (25 MCG) TABLET PO SCH (09:58)
[2020-11-02] MEDS: PANTOPRAZOLE 40 MG TABLET PO SCH (09:58)
[2020-11-02] MEDS: METHOCARBAMOL 500 MG TABLET PO SCH ×4 (09:58→21:18)
[2020-11-02] MEDS: SULFAMETHOXAZOLE/TRIMETHOPRIM 800MG/160MG D.S. TABLET PO SCH ×2 (09:58→21:18)
[2020-11-02] MEDS: NICOTINE 21 MG/24 HOURS TOPICAL PATCH TD SCH (09:59)
[2020-11-02] MEDS: LIDOCAINE 5% TOPICAL PATCH TP SCH (09:59)
[2020-11-02] MEDS: THIAMINE HCL 100 MG TABLET (FP) PO SCH (21:18)
[2020-11-02] MEDS: MIRTAZAPINE 15 MG TABLET (FP) PO SCH (21:18)
[2020-11-02] MEDS: MELATONIN 5 MG TABLETS PO SCH (21:18)
[2020-11-02] MEDS: LIDOCAINE PATCH REMOVAL MC SCH (21:19)
[2020-11-03] MEDS ORDERED: METHADONE HCL 40 MG DISPERSABLE TABLET ONE (03:09)
[2020-11-03] MEDS ORDERED: METHADONE HCL 10 MG TABLET ONE (03:09)
[2020-11-03] MEDS: GABAPENTIN 300 MG CAPSULE PO SCH ×3 (06:24→21:41)
[2020-11-03] MEDS: METHADONE 120 MG, METHADONE 20 MG PO SCH (06:24)
[2020-11-03] MEDS: CYPROHEPTADINE HCL 4 MG TABLET PO SCH ×3 (06:24→17:07)
[2020-11-03] MEDS: levETIRAcetam 500 MG TABLET (FP) PO SCH ×2 (06:24→17:09)
[2020-11-03] MEDS: hydrOXYzine PAMOATE 25 MG CAPSULE (FP) PO PRN ×5 (06:24→21:44)
[2020-11-03] MEDS: DIVALPROEX SODIUM 500 MG TABLET E.C. PO SCH ×2 (06:24→17:09)
[2020-11-03] MEDS: TRIAMCINOLONE ACET 0.1% OINT 15 GM TUBE TP SCH ×3 (06:25→21:42)
[2020-11-03] MEDS: CHOLECALCIFEROL (VIT D3) 1,000 UNIT (25 MCG) TABLET PO SCH (10:36)
[2020-11-03] MEDS: PANTOPRAZOLE 40 MG TABLET PO SCH (10:36)
[2020-11-03] MEDS: NICOTINE 21 MG/24 HOURS TOPICAL PATCH TD SCH (10:36)
[2020-11-03] MEDS: METHOCARBAMOL 500 MG TABLET PO SCH ×4 (10:36→21:42)
[2020-11-03] MEDS: SULFAMETHOXAZOLE/TRIMETHOPRIM 800MG/160MG D.S. TABLET PO SCH ×2 (10:36→21:42)
[2020-11-03] MEDS: PRENATAL VITAMINS W/ FOLIC ACID TABLET (FP) PO SCH (10:37)
[2020-11-03] MEDS: LIDOCAINE 5% TOPICAL PATCH TP SCH (10:37)
[2020-11-03] MEDS: MELATONIN 5 MG TABLETS PO SCH (21:41)
[2020-11-03] MEDS: THIAMINE HCL 100 MG TABLET (FP) PO SCH (21:41)
[2020-11-03] MEDS: MIRTAZAPINE 15 MG TABLET (FP) PO SCH (21:42)
[2020-11-03] MEDS: LIDOCAINE PATCH REMOVAL MC SCH (21:42)
[2020-11-03] MEDS: BISMUTH SUBSALICYLATE 524 MG/30 ML PO PRN (23:26)
[2020-11-04] MEDS ORDERED: METHADONE HCL 10 MG TABLET ONE (03:10)
[2020-11-04] MEDS ORDERED: METHADONE HCL 40 MG DISPERSABLE TABLET ONE (03:10)
[2020-11-04] MEDS: TRIAMCINOLONE ACET 0.1% OINT 15 GM TUBE TP SCH ×3 (06:04→21:28)
[2020-11-04] MEDS: levETIRAcetam 500 MG TABLET (FP) PO SCH ×2 (06:04→17:26)
[2020-11-04] MEDS: GABAPENTIN 300 MG CAPSULE PO SCH ×3 (06:04→21:27)
[2020-11-04] MEDS: METHADONE 120 MG, METHADONE 20 MG PO SCH (06:05)
[2020-11-04] MEDS: DIVALPROEX SODIUM 500 MG TABLET E.C. PO SCH ×2 (06:05→17:26)
[2020-11-04] MEDS: CYPROHEPTADINE HCL 4 MG TABLET PO SCH ×3 (06:05→17:27)
[2020-11-04] MEDS: PANTOPRAZOLE 40 MG TABLET PO SCH (10:00)
[2020-11-04] MEDS: hydrOXYzine PAMOATE 25 MG CAPSULE (FP) PO PRN ×2 (10:00→21:27)
[2020-11-04] MEDS: CHOLECALCIFEROL (VIT D3) 1,000 UNIT (25 MCG) TABLET PO SCH (10:00)
[2020-11-04] MEDS: SULFAMETHOXAZOLE/TRIMETHOPRIM 800MG/160MG D.S. TABLET PO SCH ×2 (10:00→21:26)
[2020-11-04] MEDS: METHOCARBAMOL 500 MG TABLET PO SCH ×4 (10:00→21:26)
[2020-11-04] MEDS: PRENATAL VITAMINS W/ FOLIC ACID TABLET (FP) PO SCH (10:00)
[2020-11-04] MEDS: NICOTINE 21 MG/24 HOURS TOPICAL PATCH TD SCH (10:01)
[2020-11-04] MEDS: LIDOCAINE 5% TOPICAL PATCH TP SCH (10:01)
[2020-11-04] MEDS: BISMUTH SUBSALICYLATE 524 MG/30 ML PO PRN (10:03)
[2020-11-04] MEDS: MIRTAZAPINE 15 MG TABLET (FP) PO SCH (21:26)
[2020-11-04] MEDS: MELATONIN 5 MG TABLETS PO SCH (21:26)
[2020-11-04] MEDS: THIAMINE HCL 100 MG TABLET (FP) PO SCH (21:26)
[2020-11-04] MEDS: LIDOCAINE PATCH REMOVAL MC SCH (21:28)
[2020-11-05] MEDS ORDERED: METHADONE HCL 10 MG TABLET ONE (03:12)
[2020-11-05] MEDS ORDERED: METHADONE HCL 40 MG DISPERSABLE TABLET ONE (03:12)
[2020-11-05] MEDS: DIVALPROEX SODIUM 500 MG TABLET E.C. PO SCH ×2 (06:42→17:13)
[2020-11-05] MEDS: GABAPENTIN 300 MG CAPSULE PO SCH ×3 (06:42→21:42)
[2020-11-05] MEDS: TRIAMCINOLONE ACET 0.1% OINT 15 GM TUBE TP SCH ×3 (06:42→21:42)
[2020-11-05] MEDS: levETIRAcetam 500 MG TABLET (FP) PO SCH ×2 (06:42→17:13)
[2020-11-05] MEDS: METHADONE 120 MG, METHADONE 20 MG PO SCH (06:43)
[2020-11-05] MEDS: CYPROHEPTADINE HCL 4 MG TABLET PO SCH ×3 (06:43→17:11)
[2020-11-05] MEDS: COLLOIDAL OATMEAL 1 BAR EACH TP PRN (07:15)
[2020-11-05] MEDS: CHOLECALCIFEROL (VIT D3) 1,000 UNIT (25 MCG) TABLET PO SCH (10:25)
[2020-11-05] MEDS: NICOTINE 21 MG/24 HOURS TOPICAL PATCH TD SCH (10:25)
[2020-11-05] MEDS: SULFAMETHOXAZOLE/TRIMETHOPRIM 800MG/160MG D.S. TABLET PO SCH ×2 (10:25→21:41)
[2020-11-05] MEDS: PRENATAL VITAMINS W/ FOLIC ACID TABLET (FP) PO SCH (10:25)
[2020-11-05] MEDS: METHOCARBAMOL 500 MG TABLET PO SCH ×4 (10:26→21:42)
[2020-11-05] MEDS: LIDOCAINE 5% TOPICAL PATCH TP SCH (10:26)
[2020-11-05] MEDS: PANTOPRAZOLE 40 MG TABLET PO SCH (10:26)
[2020-11-05] MEDS: hydrOXYzine PAMOATE 25 MG CAPSULE (FP) PO PRN ×4 (10:26→21:42)
[2020-11-05] MEDS: MIRTAZAPINE 15 MG TABLET (FP) PO SCH (21:41)
[2020-11-05] MEDS: THIAMINE HCL 100 MG TABLET (FP) PO SCH (21:41)
[2020-11-05] MEDS: MELATONIN 5 MG TABLETS PO SCH (21:41)
[2020-11-05] MEDS: LIDOCAINE PATCH REMOVAL MC SCH (21:42)
[2020-11-05] MEDS: BISMUTH SUBSALICYLATE 524 MG/30 ML PO PRN (21:43)
[2020-11-06] MEDS ORDERED: METHADONE HCL 10 MG TABLET ONE (03:13)
[2020-11-06] MEDS ORDERED: METHADONE HCL 40 MG DISPERSABLE TABLET ONE (03:13)
[2020-11-06] MEDS: METHADONE 120 MG, METHADONE 20 MG PO SCH (06:35)
[2020-11-06] MEDS: GABAPENTIN 300 MG CAPSULE PO SCH ×3 (06:36→21:15)
[2020-11-06] MEDS: levETIRAcetam 500 MG TABLET (FP) PO SCH ×2 (06:36→17:20)
[2020-11-06] MEDS: DIVALPROEX SODIUM 500 MG TABLET E.C. PO SCH ×2 (06:36→17:20)
[2020-11-06] MEDS: hydrOXYzine PAMOATE 25 MG CAPSULE (FP) PO PRN ×4 (06:36→21:15)
[2020-11-06] MEDS: CYPROHEPTADINE HCL 4 MG TABLET PO SCH ×3 (06:38→17:20)
[2020-11-06] MEDS: TRIAMCINOLONE ACET 0.1% OINT 15 GM TUBE TP SCH ×3 (06:38→21:16)
[2020-11-06] MEDS: BISMUTH SUBSALICYLATE 524 MG/30 ML PO PRN (06:53)
[2020-11-06] MEDS: LIDOCAINE 5% TOPICAL PATCH TP SCH (09:56)
[2020-11-06] MEDS: SULFAMETHOXAZOLE/TRIMETHOPRIM 800MG/160MG D.S. TABLET PO SCH ×2 (09:56→21:15)
[2020-11-06] MEDS: PRENATAL VITAMINS W/ FOLIC ACID TABLET (FP) PO SCH (09:56)
[2020-11-06] MEDS: METHOCARBAMOL 500 MG TABLET PO SCH ×4 (09:56→21:14)
[2020-11-06] MEDS: CHOLECALCIFEROL (VIT D3) 1,000 UNIT (25 MCG) TABLET PO SCH (09:56)
[2020-11-06] MEDS: NICOTINE 21 MG/24 HOURS TOPICAL PATCH TD SCH (09:56)
[2020-11-06] MEDS: PANTOPRAZOLE 40 MG TABLET PO SCH (09:56)
[2020-11-06] MEDS: THIAMINE HCL 100 MG TABLET (FP) PO SCH (21:14)
[2020-11-06] MEDS: MELATONIN 5 MG TABLETS PO SCH (21:14)
[2020-11-06] MEDS: MIRTAZAPINE 15 MG TABLET (FP) PO SCH (21:15)
[2020-11-06] MEDS: LIDOCAINE PATCH REMOVAL MC SCH (21:16)
[2020-11-07] MEDS ORDERED: METHADONE HCL 40 MG DISPERSABLE TABLET ONE (03:09)
[2020-11-07] MEDS ORDERED: METHADONE HCL 10 MG TABLET ONE (03:09)
[2020-11-07] MEDS: METHADONE 120 MG, METHADONE 20 MG PO SCH (06:31)
[2020-11-07] MEDS: GABAPENTIN 300 MG CAPSULE PO SCH (06:31)
[2020-11-07] MEDS: levETIRAcetam 500 MG TABLET (FP) PO SCH (06:31)
[2020-11-07] MEDS: hydrOXYzine PAMOATE 25 MG CAPSULE (FP) PO PRN (06:31)
[2020-11-07] MEDS: CYPROHEPTADINE HCL 4 MG TABLET PO SCH (06:31)
[2020-11-07] MEDS: TRIAMCINOLONE ACET 0.1% OINT 15 GM TUBE TP SCH (06:31)
[2020-11-07] MEDS: DIVALPROEX SODIUM 500 MG TABLET E.C. PO SCH (06:31)
[2020-11-07 06:55] VITALS: BP 120/73; PULSE 75; TEMP 97.3
[2020-11-07] MEDS: NICOTINE 21 MG/24 HOURS TOPICAL PATCH TD SCH (09:24)
[2020-11-07] MEDS: LIDOCAINE 5% TOPICAL PATCH TP SCH (09:24)
[2020-11-07] MEDS: PRENATAL VITAMINS W/ FOLIC ACID TABLET (FP) PO SCH (09:24)
[2020-11-07] MEDS: SULFAMETHOXAZOLE/TRIMETHOPRIM 800MG/160MG D.S. TABLET PO SCH (09:24)
[2020-11-07] MEDS: CHOLECALCIFEROL (VIT D3) 1,000 UNIT (25 MCG) TABLET PO SCH (09:24)
[2020-11-07] MEDS: METHOCARBAMOL 500 MG TABLET PO SCH (09:24)
[2020-11-07] MEDS: PANTOPRAZOLE 40 MG TABLET PO SCH (09:24)
[2020-11-07] MEDS: BISMUTH SUBSALICYLATE 524 MG/30 ML PO PRN (09:25)
[2020-11-07] MEDS ORDERED: PT OWN MED DRAWER 7, Y5N ONE (09:32)
== END 2020-11-07 09:51 | disposition home or self-care (01) | DRG 772 ==
LOC: YASAS 13:04 → Y3W 13:05
PROVIDERS: ADMIT Allergy & Immunology; ATTEND Allergy & Immunology
PROC: HZ42ZZZ Group Counseling for Substance Abuse Treatment, Cognitive-Behavioral (ICD-10-PCS; principal; 2020-10-23)
DX: F10.20 Alcohol dependence, uncomplicated (principal); F11.20 Opioid dependence, uncomplicated; F13.20 Sedative, hypnotic or anxiolytic dependence, uncomplicated; F12.20 Cannabis dependence, uncomplicated; F17.210 Nicotine dependence, cigarettes, uncomplicated; F19.280 Other psychoactive substance dependence with psychoactive substance-induced anxiety disorder; F19.282 Other psychoactive substance dependence with psychoactive substance-induced sleep disorder; F41.8 Other specified anxiety disorders; F32.9 Major depressive disorder, single episode, unspecified; G40.909 Epilepsy, unspecified, not intractable, without status epilepticus; K50.90 Crohn's disease, unspecified, without complications; L03.032 Cellulitis of left toe; L03.031 Cellulitis of right toe; L40.9 Psoriasis, unspecified; R07.89 Other chest pain; Z62.810 Personal history of physical and sexual abuse in childhood
CPT/HCPCS: 36415; 71046-TC-FY; 80164; 80177; 81003; C9803; U0003; U0005

== ENCOUNTER 2022-09-21 12:37 | Inpatient (IN) | payer OTHER ==
[2022-09-21 13:17] VITALS: BMI 23.7
[2022-09-21] MEDS ORDERED: guaiFENesin 600 MG TABLET.ER (FP) PO PRN (16:33)
[2022-09-21] MEDS ORDERED: MAGNESIUM HYDROX 2400MG/30ML ORAL SUSPENSION 30 ML CUP PO PRN (16:33)
[2022-09-21] MEDS ORDERED: BENZONATATE 200 MG CAPSULE PO PRN (16:33)
[2022-09-21] MEDS ORDERED: NICOTINE 10 MG CARTRIDGE (INHALER) IH PRN (16:33)
[2022-09-21] MEDS ORDERED: BISMUTH SUBSALICYLATE 524 MG/30 ML PO PRN (16:33)
[2022-09-21] MEDS ORDERED: NALOXONE HCL 0.4 MG/ML VIAL IM PRN (16:33)
[2022-09-21] MEDS ORDERED: IBUPROFEN 600 MG TABLET (FP) PO PRN (16:33)
[2022-09-21] MEDS ORDERED: NALOXONE HCL (KLOXXADO) 8 MG SPRAY NS PRN (16:33)
[2022-09-21] MEDS ORDERED: ONDANSETRON *ODT* 4 MG TABLET SL PRN (16:33)
[2022-09-21] MEDS ORDERED: BENZOCAINE/MENTHOL (CHLORASEPTIC ) LOZENGE MM PRN (16:33)
[2022-09-21] MEDS ORDERED: IBUPROFEN 400 MG TABLET (FP) PO PRN (16:33)
[2022-09-21] MEDS ORDERED: MAG HYDROX/AL HYDROX/SIMETH 30 ML UNIT-DOSE CUP PO PRN (16:33)
[2022-09-21] MEDS ORDERED: POLYETHYLENE GLYCOL (HEALTHYLAX) 3350 17 GM PACKET PO PRN (16:33)
[2022-09-21] MEDS ORDERED: DICYCLOMINE HCL 10 MG CAPSULE PO PRN (16:33)
[2022-09-21] MEDS ORDERED: ACETAMINOPHEN 325 MG TABLET (FP) PO PRN (16:33)
[2022-09-21] MEDS: METHOCARBAMOL 500 MG TABLET PO PRN ×2 (17:47→23:39)
[2022-09-21] MEDS ORDERED: methaDONE HCL 10 MG TABLET (FOR DETOX USE ONLY) PO ONE (18:00)
[2022-09-21] MEDS ORDERED: MELATONIN 5 MG TABLETS PO SCH (22:00)
[2022-09-21] MEDS: levETIRAcetam 500 MG TABLET (FP) PO SCH (22:28)
[2022-09-21] MEDS: DIVALPROEX SODIUM 500 MG TABLET E.C. PO SCH (22:28)
[2022-09-21] MEDS: THIAMINE HCL 100 MG TABLET (FP) PO SCH (22:28)
[2022-09-21] MEDS: hydrOXYzine PAMOATE 25 MG CAPSULE (FP) PO PRN (22:33)
[2022-09-21] MEDS: cloNIDine HCL 0.1 MG TABLET PO PRN (22:33)
[2022-09-22] MEDS: hydrOXYzine PAMOATE 25 MG CAPSULE (FP) PO PRN (10:20)
[2022-09-22] MEDS: DIVALPROEX SODIUM 500 MG TABLET E.C. PO SCH ×2 (10:20→22:46)
[2022-09-22] MEDS: METHOCARBAMOL 500 MG TABLET PO PRN ×2 (10:20→22:47)
[2022-09-22] MEDS: levETIRAcetam 500 MG TABLET (FP) PO SCH ×2 (10:20→22:46)
[2022-09-22] MEDS: PRENATAL VITAMINS W/ FOLIC ACID TABLET (FP) PO SCH (10:20)
[2022-09-22 12:19] LABS: HEMATOCRIT 38.8 % (35.4-49); HEMOGLOBIN 13.4 GM/dL (11.7-16.9); MCH 32.4 pg (25.7-33.7); MCHC 34.4 g/dl (32.0-35.9); MEAN PLT VOLUME 9.5 fl (7.5-11.1); PLATELET COUNT 121 10^3/uL (134-434); RBC 4.12 M/mm3 (4.00-5.60); RDW 13.3 % (11.9-15.9)
[2022-09-22 12:33] LABS: CALCIUM 8.7 mg/dL (8.5-10.1)
[2022-09-22 12:34] LABS: ALBUMIN 3.2 g/dl (3.4-5.0); BLOOD UREA NITROGEN 9.6 mg/dL (7-18)
[2022-09-22 12:37] LABS: CREATININE 0.7 mg/dL (0.55-1.3)
[2022-09-22 12:38] LABS: BILIRUBIN,TOTAL 0.8 mg/dL (0.2-1)
[2022-09-22] MEDS: LOPERAMIDE HCL 2 MG CAPSULE PO PRN (12:42)
[2022-09-22] MEDS: cloNIDine HCL 0.1 MG TABLET PO PRN (12:42)
[2022-09-22] MEDS: NICOTINE 14 MG/24 HOURS TOPICAL PATCH TD SCH (13:21)
[2022-09-22] MEDS: MIRTAZAPINE 15 MG TABLET (FP) PO SCH (22:46)
[2022-09-22] MEDS: THIAMINE HCL 100 MG TABLET (FP) PO SCH (22:46)
[2022-09-23] MEDS ORDERED: methaDONE HCL 10 MG TABLET (FOR DETOX USE ONLY) PO ONE (10:00)
[2022-09-23] MEDS: levETIRAcetam 500 MG TABLET (FP) PO SCH ×2 (10:41→22:27)
[2022-09-23] MEDS: PRENATAL VITAMINS W/ FOLIC ACID TABLET (FP) PO SCH (10:41)
[2022-09-23] MEDS: hydrOXYzine PAMOATE 25 MG CAPSULE (FP) PO PRN (10:41)
[2022-09-23] MEDS: DIVALPROEX SODIUM 500 MG TABLET E.C. PO SCH ×2 (10:41→22:26)
[2022-09-23] MEDS: NICOTINE 14 MG/24 HOURS TOPICAL PATCH TD SCH (10:42)
[2022-09-23] MEDS: METHOCARBAMOL 500 MG TABLET PO PRN ×2 (10:49→22:26)
[2022-09-23] MEDS: cloNIDine HCL 0.1 MG TABLET PO PRN (14:55)
[2022-09-23] MEDS: LOPERAMIDE HCL 2 MG CAPSULE PO PRN (14:55)
[2022-09-23 16:10] LABS: PH,URINE 8.5 (5.0-8.0); URINE APPEARANCE CLEAR; URINE BILIRUBIN NEGATIVE (NEGATIVE); URINE COLOR YELLOW; URINE GLUCOSE (UA) NEGATIVE (NEGATIVE); URINE KETONE 1+ (NEGATIVE); URINE LEUK ESTERASE NEGATIVE (NEGATIVE); URINE NITRITE NEGATIVE (NEGATIVE); URINE PROTEIN NEGATIVE (NEGATIVE); URINE UROBILINOGEN 0.2 mg/dL (0.2-1.0)
[2022-09-23] MEDS: MIRTAZAPINE 15 MG TABLET (FP) PO SCH (22:26)
[2022-09-23] MEDS: THIAMINE HCL 100 MG TABLET (FP) PO SCH (22:26)
[2022-09-23] MEDS: GABAPENTIN 300 MG CAPSULE PO SCH (22:27)
[2022-09-23] MEDS ORDERED: DIVALPROEX SODIUM 500 MG TABLET E.C. PO ONE (23:30)
[2022-09-24] MEDS: levETIRAcetam 500 MG TABLET (FP) PO SCH ×2 (10:23→22:47)
[2022-09-24] MEDS: DIVALPROEX SODIUM 250 MG TABLET E.C. PO SCH ×2 (10:23→22:47)
[2022-09-24] MEDS: GABAPENTIN 300 MG CAPSULE PO SCH ×2 (10:23→22:47)
[2022-09-24] MEDS: PRENATAL VITAMINS W/ FOLIC ACID TABLET (FP) PO SCH (10:24)
[2022-09-24] MEDS: NICOTINE 14 MG/24 HOURS TOPICAL PATCH TD SCH (10:25)
[2022-09-24] MEDS: METHOCARBAMOL 500 MG TABLET PO PRN ×3 (12:11→23:51)
[2022-09-24] MEDS: hydrOXYzine PAMOATE 25 MG CAPSULE (FP) PO PRN (17:20)
[2022-09-24] MEDS: THIAMINE HCL 100 MG TABLET (FP) PO SCH (22:47)
[2022-09-24] MEDS: MIRTAZAPINE 15 MG TABLET (FP) PO SCH (22:49)
[2022-09-25] MEDS ORDERED: cloNIDine HCL 0.1 MG TABLET PO ONE (09:55)
[2022-09-25] MEDS ORDERED: methaDONE HCL 10 MG TABLET (FOR DETOX USE ONLY) PO ONE (10:00)
[2022-09-25] MEDS: levETIRAcetam 500 MG TABLET (FP) PO SCH ×2 (10:06→22:06)
[2022-09-25] MEDS: METHOCARBAMOL 500 MG TABLET PO PRN ×2 (10:06→17:42)
[2022-09-25] MEDS: GABAPENTIN 300 MG CAPSULE PO SCH ×2 (10:06→22:06)
[2022-09-25] MEDS: PRENATAL VITAMINS W/ FOLIC ACID TABLET (FP) PO SCH (10:06)
[2022-09-25] MEDS: DIVALPROEX SODIUM 250 MG TABLET E.C. PO SCH ×2 (10:07→22:06)
[2022-09-25] MEDS: hydrOXYzine PAMOATE 25 MG CAPSULE (FP) PO PRN ×2 (10:07→17:42)
[2022-09-25] MEDS: NICOTINE 14 MG/24 HOURS TOPICAL PATCH TD SCH (10:08)
[2022-09-25] MEDS: MIRTAZAPINE 15 MG TABLET (FP) PO SCH (22:06)
[2022-09-25] MEDS: THIAMINE HCL 100 MG TABLET (FP) PO SCH (22:06)
[2022-09-26] MEDS: hydrOXYzine PAMOATE 25 MG CAPSULE (FP) PO PRN (10:18)
[2022-09-26] MEDS: GABAPENTIN 300 MG CAPSULE PO SCH (10:18)
[2022-09-26] MEDS: levETIRAcetam 500 MG TABLET (FP) PO SCH (10:18)
[2022-09-26] MEDS: PRENATAL VITAMINS W/ FOLIC ACID TABLET (FP) PO SCH (10:18)
[2022-09-26] MEDS: DIVALPROEX SODIUM 250 MG TABLET E.C. PO SCH (10:18)
[2022-09-26] MEDS: NICOTINE 14 MG/24 HOURS TOPICAL PATCH TD SCH (10:19)
[2022-09-26] MEDS: METHOCARBAMOL 500 MG TABLET PO PRN (10:19)
[2022-09-26] MEDS: LOPERAMIDE HCL 2 MG CAPSULE PO PRN (12:08)
[2022-09-26 12:26] VITALS: BP 122/46; PULSE 63; RESP 18; TEMP 98.5
[2022-09-26] MEDS ORDERED: cloNIDine HCL 0.1 MG TABLET PO ONE (12:56)
== END 2022-09-26 13:40 | disposition home or self-care (01) | DRG 773 ==
LOC: YASAS 12:37 → Y6N 17:10
PROVIDERS: ADMIT Allergy & Immunology; ATTEND Surgery
PROC: HZ2ZZZZ Detoxification Services for Substance Abuse Treatment (ICD-10-PCS; principal; 2022-09-21)
DX: F11.23 Opioid dependence with withdrawal (principal); F12.20 Cannabis dependence, uncomplicated; F17.210 Nicotine dependence, cigarettes, uncomplicated; G40.909 Epilepsy, unspecified, not intractable, without status epilepticus; G47.00 Insomnia, unspecified; L40.9 Psoriasis, unspecified; Z87.19 Personal history of other diseases of the digestive system; Z86.59 Personal history of other mental and behavioral disorders
CPT/HCPCS: 36415; 80053; 80164; 81003; 85027; 86780; 87811; C9803-CS; U0003; U0005

== ENCOUNTER 2022-11-19 16:16 | Inpatient (IN) | payer OTHER ==
[2022-11-19 17:03] VITALS: BMI 24.1
[2022-11-19] MEDS ORDERED: NICOTINE POLACRILEX 2 MG GUM BUC PRN (19:44)
[2022-11-19] MEDS ORDERED: IBUPROFEN 400 MG TABLET (FP) PO PRN (19:44)
[2022-11-19] MEDS ORDERED: BENZONATATE 200 MG CAPSULE PO PRN (19:44)
[2022-11-19] MEDS ORDERED: MELATONIN 5 MG TABLETS PO PRN (19:44)
[2022-11-19] MEDS ORDERED: DICYCLOMINE HCL 10 MG CAPSULE PO PRN (19:44)
[2022-11-19] MEDS ORDERED: POLYETHYLENE GLYCOL (HEALTHYLAX) 3350 17 GM PACKET PO PRN (19:44)
[2022-11-19] MEDS ORDERED: NALOXONE HCL 0.4 MG/ML VIAL IM PRN (19:44)
[2022-11-19] MEDS ORDERED: guaiFENesin 600 MG TABLET.ER (FP) PO PRN (19:44)
[2022-11-19] MEDS ORDERED: NALOXONE HCL (KLOXXADO) 8 MG SPRAY NS PRN (19:44)
[2022-11-19] MEDS ORDERED: BISMUTH SUBSALICYLATE 524 MG/30 ML PO PRN (19:44)
[2022-11-19] MEDS ORDERED: P-EPHED 60MG/TRIPROLIDI 2.5MG TABLET PO PRN (19:44)
[2022-11-19] MEDS ORDERED: BENZOCAINE/MENTHOL (CHLORASEPTIC ) LOZENGE MM PRN (19:44)
[2022-11-19] MEDS ORDERED: ONDANSETRON *ODT* 4 MG TABLET SL PRN (19:44)
[2022-11-19] MEDS ORDERED: MAG HYDROX/AL HYDROX/SIMETH 30 ML UNIT-DOSE CUP PO PRN (19:44)
[2022-11-19] MEDS ORDERED: ACETAMINOPHEN 325 MG TABLET (FP) PO PRN (19:44)
[2022-11-19] MEDS ORDERED: NICOTINE 10 MG CARTRIDGE (INHALER) IH PRN (19:44)
[2022-11-19] MEDS ORDERED: IBUPROFEN 600 MG TABLET (FP) PO PRN (19:44)
[2022-11-19] MEDS ORDERED: MAGNESIUM HYDROX 2400MG/30ML ORAL SUSPENSION 30 ML CUP PO PRN (19:44)
[2022-11-19] MEDS ORDERED: cloNIDine HCL 0.1 MG TABLET PO PRN (19:47)
[2022-11-19] MEDS ORDERED: methaDONE HCL 10 MG TABLET (FOR DETOX USE ONLY) ONE (21:59)
[2022-11-19] MEDS ORDERED: levETIRAcetam 500 MG TABLET (FP) PO ONE (21:59)
[2022-11-19] MEDS ORDERED: methaDONE HCL 10 MG TABLET (FOR DETOX USE ONLY) PO ONE (22:00)
[2022-11-19] MEDS: levETIRAcetam 500 MG TABLET (FP) PO SCH (22:05)
[2022-11-19] MEDS: DIVALPROEX SODIUM 500 MG TABLET E.C. PO SCH (23:27)
[2022-11-19] MEDS: THIAMINE HCL 100 MG TABLET (FP) PO SCH (23:27)
[2022-11-19] MEDS ORDERED: GABAPENTIN 300 MG CAPSULE PO ONE (23:30)
[2022-11-20] MEDS: METHOCARBAMOL 500 MG TABLET PO PRN ×3 (01:00→18:51)
[2022-11-20] MEDS: PRENATAL VITAMINS W/ FOLIC ACID TABLET (FP) PO SCH (10:39)
[2022-11-20] MEDS: GABAPENTIN 300 MG CAPSULE PO SCH ×2 (10:39→23:03)
[2022-11-20] MEDS: hydrOXYzine PAMOATE 25 MG CAPSULE (FP) PO PRN (10:40)
[2022-11-20] MEDS: levETIRAcetam 500 MG TABLET (FP) PO SCH ×2 (10:40→23:04)
[2022-11-20] MEDS: DIVALPROEX SODIUM 500 MG TABLET E.C. PO SCH ×2 (10:40→23:04)
[2022-11-20] MEDS: NICOTINE 14 MG/24 HOURS TOPICAL PATCH TD SCH (10:42)
[2022-11-20 11:30] LABS: HEMATOCRIT 38.1 % (35.4-49); MCH 32.2 pg (25.7-33.7); MCHC 34.2 g/dl (32.0-35.9); MEAN CELL VOLUME 94.2 fl (80-96); MEAN PLT VOLUME 8.8 fl (7.5-11.1); PLATELET COUNT 181 10^3/uL (134-434); RBC 4.05 M/mm3 (4.00-5.60); RDW 13.5 % (11.9-15.9); WHITE BLOOD COUNT 4.8 K/mm3 (4.0-10.0)
[2022-11-20 13:37] LABS: POTASSIUM 4.4 mmol/L (3.5-5.1)
[2022-11-20 13:41] LABS: ALBUMIN 3.2 g/dl (3.4-5.0); BLOOD UREA NITROGEN 5.1 mg/dL (7-18)
[2022-11-20 13:42] LABS: CREATININE 0.6 mg/dL (0.55-1.3)
[2022-11-20 13:44] LABS: BILIRUBIN,TOTAL 0.4 mg/dL (0.2-1); TOT PROT 6.2 g/dl (6.4-8.2)
[2022-11-20] MEDS ORDERED: MIRTAZAPINE 15 MG TABLET (FP) PO ONE (23:00)
[2022-11-20] MEDS: THIAMINE HCL 100 MG TABLET (FP) PO SCH (23:04)
[2022-11-21] MEDS ORDERED: methaDONE HCL 10 MG TABLET (FOR DETOX USE ONLY) PO ONE (10:00)
[2022-11-21] MEDS: PRENATAL VITAMINS W/ FOLIC ACID TABLET (FP) PO SCH (10:23)
[2022-11-21] MEDS: GABAPENTIN 300 MG CAPSULE PO SCH ×2 (10:24→22:13)
[2022-11-21] MEDS: DIVALPROEX SODIUM 500 MG TABLET E.C. PO SCH ×2 (10:24→22:14)
[2022-11-21] MEDS: levETIRAcetam 500 MG TABLET (FP) PO SCH ×2 (10:24→22:13)
[2022-11-21] MEDS: METHOCARBAMOL 500 MG TABLET PO PRN ×2 (10:28→22:13)
[2022-11-21] MEDS: LOPERAMIDE HCL 2 MG CAPSULE PO PRN (10:28)
[2022-11-21] MEDS: NICOTINE 14 MG/24 HOURS TOPICAL PATCH TD SCH (11:00)
[2022-11-21] MEDS: THIAMINE HCL 100 MG TABLET (FP) PO SCH (22:13)
[2022-11-21] MEDS: MIRTAZAPINE 15 MG TABLET (FP) PO SCH (22:14)
[2022-11-21] MEDS ORDERED: MIRTAZAPINE 15 MG TABLET (FP) PO ONE (22:40)
[2022-11-22] MEDS: DIVALPROEX SODIUM 500 MG TABLET E.C. PO SCH ×2 (10:18→22:16)
[2022-11-22] MEDS: levETIRAcetam 500 MG TABLET (FP) PO SCH ×2 (10:18→22:16)
[2022-11-22] MEDS: PRENATAL VITAMINS W/ FOLIC ACID TABLET (FP) PO SCH (10:18)
[2022-11-22] MEDS: hydrOXYzine PAMOATE 25 MG CAPSULE (FP) PO PRN (10:18)
[2022-11-22] MEDS: GABAPENTIN 300 MG CAPSULE PO SCH ×2 (10:18→22:16)
[2022-11-22] MEDS: METHOCARBAMOL 500 MG TABLET PO PRN ×2 (10:18→22:16)
[2022-11-22] MEDS: NICOTINE 14 MG/24 HOURS TOPICAL PATCH TD SCH (10:19)
[2022-11-22] MEDS: THIAMINE HCL 100 MG TABLET (FP) PO SCH (22:16)
[2022-11-22] MEDS: cloNIDine HCL 0.1 MG TABLET PO SCH (22:16)
[2022-11-22] MEDS: MIRTAZAPINE 15 MG TABLET (FP) PO SCH (22:16)
[2022-11-23] MEDS ORDERED: methaDONE HCL 10 MG TABLET (FOR DETOX USE ONLY) PO ONE (10:00)
[2022-11-23] MEDS: DIVALPROEX SODIUM 500 MG TABLET E.C. PO SCH ×2 (10:14→22:17)
[2022-11-23] MEDS: PRENATAL VITAMINS W/ FOLIC ACID TABLET (FP) PO SCH (10:14)
[2022-11-23] MEDS: levETIRAcetam 500 MG TABLET (FP) PO SCH ×2 (10:15→22:17)
[2022-11-23] MEDS: GABAPENTIN 300 MG CAPSULE PO SCH ×2 (10:15→22:17)
[2022-11-23] MEDS: NICOTINE 14 MG/24 HOURS TOPICAL PATCH TD SCH (10:16)
[2022-11-23] MEDS: cloNIDine HCL 0.1 MG TABLET PO SCH ×2 (10:17→23:07)
[2022-11-23 21:09] VITALS: RESP 17
[2022-11-23] MEDS: MIRTAZAPINE 15 MG TABLET (FP) PO SCH (22:17)
[2022-11-23] MEDS: THIAMINE HCL 100 MG TABLET (FP) PO SCH (22:17)
[2022-11-24 09:26] VITALS: BP 122/72; PULSE 68; TEMP 97.3
[2022-11-24] MEDS: DIVALPROEX SODIUM 500 MG TABLET E.C. PO SCH (10:11)
[2022-11-24] MEDS: cloNIDine HCL 0.1 MG TABLET PO SCH (10:11)
[2022-11-24] MEDS: PRENATAL VITAMINS W/ FOLIC ACID TABLET (FP) PO SCH (10:11)
[2022-11-24] MEDS: levETIRAcetam 500 MG TABLET (FP) PO SCH (10:11)
[2022-11-24] MEDS: GABAPENTIN 300 MG CAPSULE PO SCH (10:11)
[2022-11-24] MEDS: NICOTINE 14 MG/24 HOURS TOPICAL PATCH TD SCH (10:12)
[2022-11-24] MEDS: LOPERAMIDE HCL 2 MG CAPSULE PO PRN (11:00)
== END 2022-11-24 12:15 | disposition other institution (70) | DRG 773 ==
LOC: YASAS 16:16 → Y6N 21:53
PROVIDERS: ADMIT Allergy & Immunology; ATTEND Surgery
PROC: HZ2ZZZZ Detoxification Services for Substance Abuse Treatment (ICD-10-PCS; principal; 2022-11-19)
DX: F11.23 Opioid dependence with withdrawal (principal); F17.210 Nicotine dependence, cigarettes, uncomplicated; F31.9 Bipolar disorder, unspecified; F19.282 Other psychoactive substance dependence with psychoactive substance-induced sleep disorder; F41.9 Anxiety disorder, unspecified; G40.A09 Absence epileptic syndrome, not intractable, without status epilepticus; I10 Essential (primary) hypertension; L40.9 Psoriasis, unspecified; Z87.19 Personal history of other diseases of the digestive system; Z28.310 Unvaccinated for COVID-19; Z28.9 Immunization not carried out for unspecified reason
CPT/HCPCS: 36415; 80053; 80164; 85027; 86780; 87635; 87811